=== PATIENT | female | born 1985 | race Caucasian/White ===

== ENCOUNTER 2017-06-03 08:32 | Day surgery (SDC) | payer OTHER ==
[~2017-06-03 08:32] MED LIST: Buffered Lidocaine 0.9% SYRIN* 5 ML/SYR SYRINGE INTRADERM ONE; ceFAZolin 2 GM in 100 MLS NS (*) BAG IVPB ONE
[2017-06-03] MEDS ORDERED: fentaNYL* 50 MCG/ML 2 ML VIAL (100 MCG VIAL) ONE (09:08)
[2017-06-03] MEDS ORDERED: Midazolam* 1 MG/ML 2 ML VIAL (2 MG) ONE ×2 (09:08→10:20)
[2017-06-03] MEDS ORDERED: BSS OPTH.SOL* BTL ONE (10:04)
[2017-06-03] MEDS ORDERED: Lidocaine 1% MPF wEPI 200,000* 30 ML SDV ONE (10:05)
[2017-06-03] MEDS ORDERED: Bacitracin OINTMENT* 0.5% 0.5 oz TUBE ONE (10:05)
[2017-06-03] MEDS ORDERED: Famotidine IV* 10 MG/ML 2 ML (20 mg) ONE (10:12)
[2017-06-03] MEDS ORDERED: Lidocaine 2% PF * 5 ML VIAL ONE (10:22)
[2017-06-03] MEDS ORDERED: Propofol* 10 MG/ML 20 ML BTL IV PUSH ONE (10:22)
[2017-06-03] MEDS ORDERED: Ketorolac INJ* 30 MG/ML 1 ML VIAL ONE (10:22)
[2017-06-03] MEDS ORDERED: Naloxone* 0.4 MG/ML 1 ML VIAL IV PRN (10:40)
[2017-06-03] MEDS ORDERED: HYDROcodone/ACETAMIN 5-325 MG* 1 TAB PO PRN (10:40)
[2017-06-03] MEDS ORDERED: Levalbuterol 0.63MG/3ML NEB* UNIT OF USE INH PRN (10:40)
[2017-06-03] MEDS ORDERED: Acetaminophen TAB* 325 MG PO PRN (10:40)
[2017-06-03] MEDS ORDERED: PROCHLORPERAZINE INJ 5 MG/ML 2 ML VIAL IV PRN (10:40)
[2017-06-03] MEDS ORDERED: DiMENhydriNATE IV* 50 MG/ML VIAL IV PUSH PRN (10:40)
[2017-06-03] MEDS ORDERED: Acetaminophen TAB* 325 MG ONE (11:29)
[2017-06-03 11:36] VITALS: BP 132/66
== END 2017-06-03 12:12 | disposition home or self-care (01) ==
LOC: OREAST 08:32
PROVIDERS: ATTEND Plastic Surgery
DX: Q85.01 Neurofibromatosis, type 1 (principal); F17.210 Nicotine dependence, cigarettes, uncomplicated; I10 Essential (primary) hypertension; F41.8 Other specified anxiety disorders; R51 Headache
CPT/HCPCS: 81025; 88305; A9270-GY; J1885; J2001; J2250; J2704; J3010

== ENCOUNTER 2017-06-23 19:47 | Emergency (ER) | payer SELFPAY ==
[2017-06-23] MEDS ORDERED: Tetan/Diph/Pertus SYR(Tdap)* 0.5 ML SYR(BOOSTRIX) use SYR IM ONE (19:52)
[2017-06-23] MEDS ORDERED: Ondansetron INJ* 2 MG/ML VIAL IV ONE (19:52)
[2017-06-23] MEDS ORDERED: Morphine INJ* 4 MG/ML 1 ML CARPUJECT IV ONE ×2 (19:52→22:18)
[2017-06-23] MEDS ORDERED: Morphine INJ* 4 MG/ML 1 ML SYRINGE (NEW SYRINGE VERSION) ONE (20:25)
[2017-06-23 20:33] LABS: ABS Basophils 0.1 10^3/ul (0-0.2); ABS Eosinophils 0.1 10^3/ul (0-0.6); ABS Lymphocytes 1.3 10^3/ul (1.0-4.8); ABS Monocytes 0.5 10^3/ul (0-0.8); ABS Neutrophils 6.8 10^3/ul (1.5-7.7); ABS Nucleated RBC 0 10^3/ul; Eosinophil % 0.8 % (0-6); Hematocrit 38 % (35-47); Lymphocyte % 14.7 % (25-47); Mean Corpuscular HGB Conc 34 g/dl (31-36); Mean Corpuscular Hemoglobin 31 pg (27-31); Mean Corpuscular Volume 89 fL (80-97); Mean Platelet Volume 7.9 um3 (7.4-10.4); Nucleated Red Blood Cells % 0; Platelet Count 303 10^3/ul (150-450); Red Blood Count 4.21 10^6/ul (4.0-5.4); Red Cell Distribution Width 12 % (10.5-15); White Blood Count 8.7 10^3/ul (3.5-10.8)
[2017-06-23 20:50] LABS: EGFR Non-African American 84.9 (>60)
[2017-06-23] MEDS ORDERED: Iohexol 300* (CONTRAST) 10 ML SDV IV ONE (20:58)
[2017-06-23 21:34] LABS: Urine Appearance Clear; Urine Blood 3+ (Negative); Urine Color Yellow; Urine Ketones Negative (Negative); Urine Protein Negative (Negative); Urine Specific Gravity 1.005 (1.010-1.030); Urine Urobilinogen Negative (Negative)
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
[2017-06-23 23:06] VITALS: BP 121/73
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
--- NOTE | 2017-06-24 07:45 | RAD ---
HISTORY: Left thumb injury COMPARISONS: None VIEWS: 3, Frontal, lateral, and oblique views of the first digit of left hand FINDINGS: BONE DENSITY: Normal. BONES: There is no displaced fracture. JOINTS: There is no arthropathy. ALIGNMENT: There is no dislocation. SOFT TISSUES: Unremarkable. OTHER FINDINGS: None. IMPRESSION: NO ACUTE OSSEOUS INJURY. IF SYMPTOMS PERSIST, RECOMMEND REPEAT IMAGING.
== END 2017-06-24 00:33 | disposition home or self-care (01) ==
LOC: ED 19:47
DX: S60.211A Contusion of right wrist, initial encounter (principal); S40.021A Contusion of right upper arm, initial encounter; Q85.01 Neurofibromatosis, type 1; R51 Headache; M79.645 Pain in left finger(s); M25.531 Pain in right wrist; M25.511 Pain in right shoulder; V43.52XA Car driver injured in collision with other type car in traffic accident, initial encounter; Y92.410 Unspecified street and highway as the place of occurrence of the external cause
CPT/HCPCS: 36415; 70450; 71260; 72125; 74177; 80053; 81003; 81015; 83690; 85025; 86850; 86900; 86901; 90471; 90715; 96374; 96375; 99283; J2270; J2405; Q9967

== ENCOUNTER 2017-12-09 12:08 | Day surgery (SDC) | payer OTHER ==
[~2017-12-09 12:08] MED LIST changes: +Dexamethasone IV* 4 MG/ML 1 ML (4 MG) IV SLOW PU ONE; +Famotidine IV* 10 MG/ML 2 ML (20 mg) IV ONE; -ceFAZolin 2 GM in 100 MLS NS (*) BAG IVPB ONE
[2017-12-09] MEDS ORDERED: Dexamethasone IV* 4 MG/ML 1 ML (4 MG) ONE (12:17)
[2017-12-09] MEDS ORDERED: ceFAZolin 2 GM in NS PREMIX(*) 2 GM/100 ML BAG IVPB ONE (12:18)
[2017-12-09] MEDS ORDERED: Famotidine IV* 10 MG/ML 2 ML (20 mg) ONE (12:18)
[2017-12-09] MEDS ORDERED: Ondansetron INJ* 2 MG/ML VIAL IV PRN (13:55)
[2017-12-09] MEDS ORDERED: oxyCODONE/Acetamin 5/325 MG* TAB PO PRN (13:55)
[2017-12-09] MEDS ORDERED: fentaNYL* 50 MCG/ML 2 ML VIAL (100 MCG VIAL) IV PRN (13:55)
[2017-12-09] MEDS ORDERED: DiMENhydriNATE IV* 50 MG/ML VIAL IV PUSH PRN (13:55)
[2017-12-09] MEDS ORDERED: Naloxone* 0.4 MG/ML 1 ML VIAL IV PRN (13:55)
[2017-12-09] MEDS ORDERED: Midazolam* 1 MG/ML 5 ML VIAL (5 MG) ONE (14:00)
[2017-12-09] MEDS ORDERED: fentaNYL* 50 MCG/ML 2 ML VIAL (100 MCG VIAL) ONE (14:00)
[2017-12-09] MEDS ORDERED: Propofol* 10 MG/ML 20 ML BTL IV PUSH ONE (14:01)
[2017-12-09] MEDS ORDERED: Lidocaine 2% PF * 5 ML VIAL ONE (14:01)
[2017-12-09] MEDS ORDERED: Ketorolac INJ* 30 MG/ML 1 ML VIAL ONE (14:01)
[2017-12-09] MEDS ORDERED: Ondansetron INJ* 2 MG/ML VIAL ONE (14:01)
[2017-12-09] MEDS ORDERED: ROPIVACAINE 5 MG/ML 30 ML BTL (0.5%) ONE (14:46)
[2017-12-09 15:59] VITALS: BP 107/62
--- NOTE | 2017-12-11 01:36 | OP ---
OPERATIVE REPORT: DATE OF OPERATION: 12/09/17 DATE OF : 85 SURGEON: Doug Huff MD HELP DESK ADMINISTRATOR: None. ANESTHESIOLOGIST: Dr. Benz. ANESTHESIA: Local MAC. PRE-OP DIAGNOSIS: Left thumb middle finger neurofibroma. POST-OP DIAGNOSIS: Left thumb middle finger neurofibroma. OPERATIVE PROCEDURE: 1. Excision of left thumb neurofibroma over the distal phalanx. 2. Excision of a deep left middle finger neurofibroma over the ulnar aspect of the proximal phalanx. INDICATIONS: Aishwarya is 32. She has neurofibromatosis. She has had multiple neurofibromas excised ov er her life. She has developed couple that a quite symptomatic in the fingers, actually in the clini c she had wanted to see if she can get these excised. We talked about risks and benefits, she wanted to proceed. ESTIMATED BLOOD LOSS: 2 mL. COMPLICATIONS: None. FINDINGS: As expected. DESCRIPTION OF PROCEDURE: Aishwarya was seen in the preoperative holding area. We came back to the oper ating room where I performed digital blocks for both fingers with long acting local anesthetic. We t hen prepped and draped the hand in the usual fashion and a time-out was performed. The arm was exsanguinated and the tourniquet inflated to 250 mmHg. I made a longitudinal incision ov er the dorsal radial aspect of the left thumb over the distal phalanx. The neurofibroma was excised out in a marginal type fashion. This was taken all the way down to the periosteum of the bone and wa s filled out periosteum of the bone. Once I had fully excised the mass we closed the skin with 4-0 n ylon suture. I then made a longitudinal incision just dorsal to the ulnar mid axial line on the left middle finger over the proximal phalanx. A marginal excision was again performed of another neurofibroma. This w as taken deep down to the periosteum of the proximal phalanx. Care was taken to preserve the digital nerve neurovascular bundle palmarly. Once the mass was completely excised the wound was irrigated o ut. The skin was closed with 4-0 nylon suture. The fingers were dressed with soft dressings. Tourni quet was deflated and she was woken up and taken to the recovery room in stable condition. [id number]/[facility] #: [id number]
== END 2017-12-09 16:15 | disposition home or self-care (01) ==
LOC: OREAST 12:08
PROVIDERS: ATTEND Orthopaedic Surgery Hand Surgery
CPT/HCPCS: 81025; 88304; J0690; J1100; J1885; J2250; J2405; J2704; J2795; J3010

== ENCOUNTER 2018-01-20 06:09 | Observation (INO) | payer OTHER ==
[~2018-01-20 06:09] MED LIST changes: -Dexamethasone IV* 4 MG/ML 1 ML (4 MG) IV SLOW PU ONE
[2018-01-20] MEDS ORDERED: Famotidine IV* 10 MG/ML 2 ML (20 mg) ONE (06:49)
[2018-01-20] MEDS ORDERED: ceFAZolin 2 GM PREMIX in ORs 2 GM/50 ML BAG IVPB ONE (06:49)
[2018-01-20] MEDS ORDERED: Lidocaine 1% MPF wEPI 200,000* 30 ML SDV ONE (06:52)
[2018-01-20] MEDS ORDERED: Bacitracin IV* 50,000 UNITS INJ ONE (06:53)
[2018-01-20] MEDS ORDERED: Thrombin 5,000 UNITS* 1 APPLIC KIT - topical use - TOPICAL ONE (06:53)
[2018-01-20] MEDS ORDERED: Midazolam* 1 MG/ML 10 ML VIAL (10 MG) ONE (07:16)
[2018-01-20] MEDS ORDERED: Remifentanil* 2 MG VIAL ONE ×2 (07:16→09:14)
[2018-01-20] MEDS ORDERED: Artificial Tear OPHTH.OINT* 3.5 GM ONE (07:16)
[2018-01-20] MEDS ORDERED: fentaNYL* 50 MCG/ML 2 ML VIAL (100 MCG VIAL) ONE ×3 (07:16→12:05)
[2018-01-20] MEDS ORDERED: Cisatracurium* 2 MG/ML MDV 5 ML ONE (07:16)
[2018-01-20] MEDS ORDERED: Lidocaine 2% PF * 5 ML VIAL ONE ×2 (07:16→09:15)
[2018-01-20] MEDS ORDERED: Propofol* 10 MG/ML 20 ML BTL IV PUSH ONE (07:16)
[2018-01-20] MEDS ORDERED: Sodium Chloride 0.9%* 10 ML ONE (07:16)
[2018-01-20] MEDS ORDERED: KETAMINE HCL* 50 MG/ML 10 ML VIAL ONE (07:16)
[2018-01-20] MEDS ORDERED: Propofol* 500 MG/50 ML BTL ONE ×2 (07:16→09:14)
[2018-01-20] MEDS ORDERED: Phenylephrine INJ* 10 MG/ML 1 ML VIAL (10 MG) ONE (07:16)
[2018-01-20] MEDS ORDERED: Dexamethasone IV* 4 MG/ML 1 ML (4 MG) ONE ×2 (07:17)
[2018-01-20] MEDS ORDERED: Morphine VIAL* 10 MG/ML 1 ML VIAL ONE (08:17)
[2018-01-20] MEDS ORDERED: Metoclopramide IV* 5 MG/ML 2 ML VIAL ONE (08:25)
[2018-01-20] MEDS ORDERED: DiMENhydriNATE IV* 50 MG/ML VIAL IV PUSH PRN (09:54)
[2018-01-20] MEDS ORDERED: Ondansetron INJ* 2 MG/ML VIAL IV PRN ×2 (09:54→11:20)
[2018-01-20] MEDS ORDERED: Naloxone* 0.4 MG/ML 1 ML VIAL IV PRN (09:54)
[2018-01-20] MEDS ORDERED: oxyCODONE/Acetamin 5/325 MG* TAB PO PRN (09:54)
[2018-01-20] MEDS ORDERED: HYDROmorphone INJ1* 1 MG/ML SYRINGE ONE (10:44)
[2018-01-20] MEDS ORDERED: Acetaminophen TAB* 325 MG PO PRN (11:20)
--- NOTE | 2018-01-20 11:34 | RAD ---
INDICATION: Anterior cervical discectomy and fusion COMPARISONS: December 24, 2017 TECHNIQUE: Fluoroscopy was provided for a surgical procedure. Total fluoroscopy time is: 23.2 seconds FINDINGS: Spot images demonstrate anterior cervical fusion plate and screws at C4, C5, C6 with intervertebral graft material. IMPRESSION: FLUOROSCOPY WAS PROVIDED FOR A SURGICAL PROCEDURE CPT II Codes: G9500
[2018-01-20] MEDS: fentaNYL* 50 MCG/ML 2 ML VIAL (100 MCG VIAL) IV PRN ×4 (11:39→12:16)
[2018-01-20] MEDS ORDERED: HYDROcodone/ACETAMIN 5-325 MG* 1 TAB ONE (12:47)
[2018-01-20] MEDS: HYDROcodone/ACETAMIN 5-325 MG* 1 TAB PO PRN ×2 (16:51→20:59)
[2018-01-20] MEDS: traZODone TAB* 50 MG TAB PO SCH (21:00)
[2018-01-20] MEDS: Gabapentin CAP(*) 300 MG PO SCH (21:00)
--- NOTE | 2018-01-20 23:09 | OP ---
DATE OF OPERATION: 01/20/18 - ROOM #331 DATE OF : 85 SURGEON: Angeles Sharma MD GOVERNMENT INSTRUCTOR: DANIA Pierre. The case was done with assistance of surgical PA because of the complexity of the case. ANESTHESIA: General. PRE-OP DIAGNOSES: Degenerative disk disease, myelopathy. POST-OP DIAGNOSES: Degenerative disk disease, myelopathy. OPERATIVE PROCEDURE: The patient underwent anterior cervical diskectomy and fusion at C4-5 and C5-6 with PEEK interbody cages, autologous local bone graft, DBX and plate. ESTIMATED BLOOD LOSS: 20 cc. COMPLICATIONS: None. 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 MRI revealed degenerative disk disease at with herniated nucleus pulposus and cord compression. The patient was offered the option of surgical intervention in the form of anterior cervical diskectomy and fusion. After explaining the expectation, limitations and possible complications of the procedure to the patient and her mother with complications including, but not limited to bleeding , infection, risk of injury to adjacent structures, coma, paralysis, , need for additional procedures, anesthesia risks, stroke, blindness, cancer, instability, pseudoarthrosis, adjacent level disease, spinal fluid leak, recurrent laryngeal nerve injury, Chanda syndrome, need for tracheostomy or gastrostomy, prolonged ICU stay; the patient and her mother were agreeable to proceed with surgery and informed consent was obtained. The patient understood that her condition may not improve and in fact may get worse after surgery and that she may need to have additional procedures. She also understood that the goal of the surgery is to decompress the spinal cord and hopefully stabilize her myelopathy. She understood that operative plan may be modified according to intraoperative findings and conditions and that the case can be abandoned or be done in more than 1 stages. DESCRIPTION OF PROCEDURE: The patient was brought to the operating room and was placed under general anesthesia by anesthesia team. She was carefully positioned supine on the regular table and all the bony prominences were meticulously padded. Her skin was prepped and draped in the standard fashion and right transverse incisions over the appropriate surgical levels were marked on the skin with assistance of intraoperative fluoroscopic imaging. After appropriate surgical pause and patient identification, the incision site was infiltrated with local anesthetic. A #10 surgical blade was used to incise the skin. The skin was undermined with tenotomy scissors and the self-retaining retractors were introduced into the field. The platysma was gently divided with tenotomy scissors and Bovie cautery and was gently undermined. The self- retaining retractors were introduced right into the field and the plane between the medial border of the sternocleidomastoid and the medial structures was then developed with sharp and blunt dissection while the omohyoid was gently divided with Bovie cautery. The prevertebral fascia was then identified and after confirming of the appropriate surgical levels with intraoperative fluoroscopic imaging, Donnell pins were placed in the C4, C5 and C6 vertebral bodies while the self-retaining retractors were introduced into the field. A diskectomy was performed at C4-5 level after incising the annulus fibrosus with #15 surgical blade. The diskectomy was carried out with pituitary rongeurs, Kerrison punches , curettes, and high-speed drill. Locally harvested bone graft was then saved during this process for the use of the arthrodesis part of the procedure. The diskectomy was completed under the microscopic magnification and large disk herniation was identified and was gently removed with pituitary rongeurs. The posterior longitudinal ligament was gently divided with Kerrison punches and after appropriate sizing of the disk space with trials, an 8-mm height PEEK interbody cage from [employer] was implanted after being filled with locally harvested bone graft and DBX putty. The [place] pin was then removed from the C4 vertebral body and after confirmation of meticulous hemostasis, the retractor system was removed into the next level. The procedure was repeated for diskectomy and preparation of the disk space at the C5-6 level and another 8 -mm height PEEK interbody cage filled with locally harvested bone graft and DBX was then placed. A 37-mm ZEVO plate was contoured in shape and was placed and secured with titanium screws. Intraoperative fluoroscopic imaging confirmed excellent placement of all hardware. After removal of the retractor system, excellent hemostasis was confirmed and after copious irrigation and meticulous inspection, #7 GRETTA drain was inserted and the wound was closed by layers. The GRETTA drain was tunneled through a separate stab wound incision. The wound was closed with 2-0 interrupted Vicryl sutures for the platysma while the subcutaneous tissue was approximated with 2-0 interrupted Vicryl sutures. The skin was then covered with Dermabond. At the end of the procedure, all counts were reported to be correct. The patient remained hemodynamically stable throughout the case and intraoperative electro-physiological monitoring remained stable throughout the case. The patient was then extubated and was transferred to Recovery in excellent condition. The case was done with the assistance of surgical PA because of the complexity of the case. [id number]/[facility] #: [id number] MARISOL
[2018-01-21] MEDS: HYDROcodone/ACETAMIN 5-325 MG* 1 TAB PO PRN ×5 (01:03→17:10)
[2018-01-21] MEDS: Venlafaxine EXT RELEASE CAP* 75 MG PO SCH (08:51)
[2018-01-21] MEDS: Verapamil SR CAP* 180 MG PO SCH (08:52)
[2018-01-21] MEDS: Gabapentin CAP(*) 300 MG PO SCH ×2 (08:52→20:02)
[2018-01-21] MEDS ORDERED: Benzocaine/Menthol LOZ* 1 LOZENGE PO PRN (11:11)
[2018-01-21 11:53] LABS: ABS Basophils 0 10^3/ul (0-0.2); ABS Eosinophils 0 10^3/ul (0-0.6); ABS Lymphocytes 0.8 10^3/ul (1.0-4.8); ABS Monocytes 0.4 10^3/ul (0-0.8); ABS Neutrophils 8.1 10^3/ul (1.5-7.7); ABS Nucleated RBC 0 10^3/ul; Eosinophil % 0.1 % (0-6); Hematocrit 38 % (35-47); Hemoglobin 13.1 g/dl (12.0-16.0); Lymphocyte % 8.1 % (25-47); Mean Corpuscular HGB Conc 34 g/dl (31-36); Mean Corpuscular Hemoglobin 31 pg (27-31); Mean Corpuscular Volume 90 fL (80-97); Mean Platelet Volume 8.2 um3 (7.4-10.4); Nucleated Red Blood Cells % 0.1; Platelet Count 257 10^3/ul (150-450); Red Blood Count 4.26 10^6/ul (4.00-5.40); Red Cell Distribution Width 13 % (10.5-15); White Blood Count 9.3 10^3/ul (3.5-10.8)
[2018-01-21 12:11] LABS: EGFR Non-African American 98.6 (>60)
[2018-01-21] MEDS ORDERED: Ketorolac INJ* 15 MG/ML 1 ML VIAL IV PUSH ONE (13:38)
--- NOTE | 2018-01-21 17:26 | CONS ---
CC: Dr. Andrez Manzo; Dr. Marks; Dr. Sharma * CONSULTATION REPORT: DATE OF CONSULT: 01/21/18 PRIMARY CARE PROVIDER: Dr. Andrez Manzo. PATIENT'S NEUROLOGIST: Dr. Marks PATIENT'S NEUROSURGEON: Dr. Sharma, who requested the consult. REASON FOR CONSULT: Postoperative headaches. HISTORY OF PRESENT ILLNESS: Aishwarya Vega is a 32-year-old female, status post anterior cervical discectomy for degenerative disc disease and cord compression performed by Dr. Sharma on 01/20/18. Today in the morning, she developed 9/10 frontal headache. The patient stated that she has history of chronic headaches and usually they are in similar intensity at home, but localized in the occipital area. Today's headache is different. In addition to that, the patient complains of difficulty with painful swallowing after general anesthesia and intubation. She is currently wearing a C-spine collar. She has not eaten anything today. She usually drinks coffee during the daytime, she has not had any. She denies any localized weakness and she has not had any weakness prior to her C- spine surgery. She complained of cervical pain prior to surgery with Dr. Sharma. A consultation was requested by Dr. Sharma in regards of that headache. PAST MEDICAL HISTORY: 1. History of neurofibromatosis type 1. 2. History of insomnia. 3. History of chronic pain. 4. [place] teeth removal. CURRENT MEDICATIONS: Include: 1. Verapamil SR 180 mg q.a.m. 2. Effexor 150 mg daily. 3. Trazodone 50 mg at bedtime. 4. Zofran on p.r.n. basis. 5. Lactated Ringer's 75 mL an hour. 6. [place] 1 tablet every 4 hours p.r.n. 7. Gabapentin 300 mg b.i.d. 8. Pepcid, the patient received 1 dose IV postoperatively. 9. Tylenol on a p.r.n. basis. ALLERGIES: PREDNISONE causes the patient to be delirious as well as ADHESIVE TAPE and COCONUT. FAMILY HISTORY: The patient's parents are healthy. She has no siblings with medical problems either. SOCIAL HISTORY: The patient is a [id number] mom. Her children are 2 and 5 years old. She denies any alcohol, tobacco, or drug use. Her surrogate is her father, Balaji Vega. REVIEW OF SYSTEMS: The patient complains of 9/10 frontal headache. Denies visual changes. Denies focal weakness. The patient complains of pain with swallowing, but no difficulty swallowing per se after intubation. She has not eaten breakfast yet and she has not had any carbohydrate beverages, which she uses routinely at home. The patient denies any chest pain, abdominal pain. The patient complains of chronic skin lesions with fibromatosis. All the remaining 12 systems are reviewed with the patient and were otherwise negative. PHYSICAL EXAM: Blood pressure of 183/74, heart rate of 71 and regular, respiratory rate 14, oxygen saturation 96% on room air, and temperature 98.6. General: The patient is a very pleasant 32-year-old female who is not in acute distress. Alert, awake, and oriented x3. HEENT: Head: Atraumatic and normocephalic. Eyes: Pupils are equal and reactive to light and accommodation. Oropharynx is pink. Mucosa moist. Neck: C-spine collar in place. Postoperative dressing anteriorly applied to the neck that was not removed for evaluation. The patient has GRETTA drain attached to the anterior cervical wound that is draining straw-colored liquid with streak red blood. There is approximately an 8 mL of fluid in the GRETTA drain ball. Respiratory: Clear to auscultation bilaterally. Cardiovascular: Regular rate and rhythm. No murmur. Abdomen: Soft, nontender. Bowel sounds are present in all 4 quadrants. Extremities: There is no edema. Pulses are +2 bilaterally. No clubbing or cyanosis. On evaluation of the skin, multiple skin fibromas noted, mostly concentrating on the anterior trunk. There are no open lesions. The skin is nontender to palpation. Neuro Evaluation: Cranial nerves II through XII are grossly intact. Mobility of the neck was not evaluated due to C-spine collar in place as was postoperative state. Motor strength bilateral upper and lower extremities is 5/5 bilaterally and not impaired. Sensation is grossly intact. Speech is clear. Psychiatric Evaluation: Oriented x3, pleasant and cooperative with evaluation with no evidence of anxiety or depression. LABORATORY DATA: Pending at the time of dictation. ASSESSMENT AND PLAN: 1. Postoperative headache. It may be caffeine withdrawal headache. I encouraged for the patient to eat. For the time being though due to low p.o. intake, I will restart her IV fluids. At this point, try to break the headache with 1 dose of Toradol, but I would prefer to have the patient's renal function before administering the nonsteroidal medication. For the time being, I agree with further management with [place] and Tylenol as previously ordered. 2. In regards to the patient's postoperative state as per Dr. Sharma. Thank you very much for allowing me to see your patient in consultation. We will follow on daily basis. TIME SPENT: Approximately 62 minutes were spent on the patient's consult. [id number]/[facility] #: [id number] MARISOL
--- NOTE | 2018-01-21 19:56 | PN ---
Progress Note - Progress Note Date of Service: 01/21/18 SOAP: Subjective: []No events ON. Patient tolerated the procedure well yesterday. Had co BLACK this am. Appreciate IM consult. Ambulates, Voids, Tolerates Po well, mild difficulty swallowing. Objective: []VSS, Afebrile Wound s,c,d GRETTA output noted, GRETTA was removed. Catheter appeared to be intact. Patient tolerated procedure well. AAOx3, IVAN, CN II-XII grossly intact Motor 5/5 all extremities Sensory grossly intact to light touch Assessment: []32 yof POD#1 ACDF C4-5, C5-6 Plan: []Monitor VS, Neurochecks Encourage ambulation. DC planning Appreciate IM consult. Ariel Sharma MD
[2018-01-21] MEDS ORDERED: Ketorolac INJ* 30 MG/ML 1 ML VIAL IV ONE (21:00)
[2018-01-21] MEDS: traZODone TAB* 50 MG TAB PO SCH (21:16)
[2018-01-22] MEDS: HYDROcodone/ACETAMIN 5-325 MG* 1 TAB PO PRN ×3 (03:35→12:45)
[2018-01-22 08:08] VITALS: BP 121/65
[2018-01-22] MEDS ORDERED: Ketorolac INJ* 15 MG/ML 1 ML VIAL IV PUSH ONE (08:43)
[2018-01-22] MEDS: Gabapentin CAP(*) 300 MG PO SCH (09:11)
[2018-01-22] MEDS: Verapamil SR CAP* 180 MG PO SCH (09:12)
[2018-01-22] MEDS: Venlafaxine EXT RELEASE CAP* 75 MG PO SCH (09:12)
--- NOTE | 2018-01-22 10:09 | PN ---
Subjective Date of Service: 01/22/18 Interval History: Ms. Vega reports that her headaches remain a 9/10, but states the pain is generalized, not frontal. She reports chronic daily headaches. She states this is how her headaches typically present, but the pain is usually resolved with acetaminophen. She reports that the toradol she received yesterday resolved the pain completely, but the norco has not helped. The norco was effective for her neck/shoulder pain. She sometimes takes ibuprofen at home. She does usually consume 1 cup of coffee daily as well as Pepsi throughout the day. She has been drinking Pepsi overnight, but has not had coffee in a few days due to her difficulty swallowing postop. She is still wearing a [place] J collar. She would like to shower this morning. Family History: Unchanged from Admission Social History: Unchanged from Admission Past Medical History: Unchanged from Admission Objective Active Medications: Acetaminophen (Tylenol Tab*) 650 mg PO Q4H PRN Hydrocodone Bitart/Acetaminophen ([place] 5-325 Tab*) 2 tab PO Q4H PRN Gabapentin (Neurontin Cap(*)) 300 mg PO BID OSKAR Lactated Ringer's (Lactated Ringers 1000 Ml Bag*) 1,000 mls @ 75 mls/hr IV .per rate OSKAR Ondansetron HCl (Zofran Inj*) 4 mg IV Q6H PRN Throat Lozenges (Chloraseptic Morales*) 1 morales PO Q6H PRN Trazodone HCl (Desyrel Tab*) 50 mg PO BEDTIME OSKAR Venlafaxine HCl (Effexor Xr Cap*) 150 mg PO QAM OSKAR Verapamil HCl (Calan Sr Cap*) 180 mg PO QAM OSKAR Vital Signs - 8 hr 01/22/18 01/22/18 01/22/18 03:15 03:35 07:25 Temperature 98.5 F 97.9 F Pulse Rate 70 63 Respiratory 16 18 16 Rate Blood Pressure 126/60 121/65 (mmHg) O2 Sat by Pulse 97 97 Oximetry Oxygen Devices in Use Now: None Appearance: Young adult woman laying in bed in NAD; [place] J collar in place Eyes: No Scleral Icterus Ears/Nose/Mouth/Throat: Mucous Membranes Moist Neck: NL Appearance and Movements; NL JVP Respiratory: Symmetrical Chest Expansion and Respiratory Effort, Clear to Auscultation Cardiovascular: NL Sounds; No Murmurs; No JVD, RRR Extremities: No Edema Neurological: Alert and Oriented x 3 Lines/Tubes/Other Access: Clean, Dry and Intact Peripheral IV Nutrition: Taking PO's Result Diagrams: 01/21/18 11:22 01/21/18 11:22 Assess/Plan/Problems-Billing Assessment: Ms. Vega is a 32yo with PMH of neurofibromatosis type 1, chronic pain, and insomnia, who underwent a cervical discectomy with Dr. Junior on 01/20/18 and presented POD 1 with c/o severe headaches. Hospital medicine is consulting for co-medical management. - Patient Problems (1) Chronic daily headache Current Visit: Yes Status: Acute Priority: High Code(s): R51 - HEADACHE SNOMED Code(s): 288318826156 Comment: - Worsened postop; likely exacerbated by caffeine withdrawal - Continue [place] and tylenol - Toradol x1 now - Recommend NSAID use at d/c as this has proven effective here in the hospital (2) S/P cervical discectomy Current Visit: Yes Status: Acute Priority: High Code(s): Z98.890 - OTHER SPECIFIED POSTPROCEDURAL STATES SNOMED Code(s): 740558677 Comment: - Management per Neurosurgery (3) Neurofibromatosis, type 1 Current Visit: Yes Status: Chronic Priority: Medium Comment: - Follows with Dr. Marks - Continue home medications (4) Insomnia disorder Current Visit: Yes Status: Chronic Priority: Medium Code(s): G47.00 - INSOMNIA, UNSPECIFIED SNOMED Code(s): 743515656 Comment: - Continue trazodone (5) Full code status Current Visit: Yes Status: Acute Priority: High Code(s): Z78.9 - OTHER SPECIFIED HEALTH STATUS SNOMED Code(s): 288770108 (6) DVT prophylaxis Current Visit: Yes Status: Acute Priority: High Code(s): CGF1113 - SNOMED Code(s): 934654917 Comment: - SCDs Status and Disposition: Observation. The patient is stable for d/c home from a Hospital Medicine standpoint. Recommend NSAID use at d/c and f/u with neurology. Thank you for this consultation.
--- NOTE | 2018-01-22 10:25 | PN ---
Progress Note - Progress Note Date of Service: 01/22/18 SOAP: Subjective: []POD # 2 Doing well Some neck pain Objective: []Neck soft Neuro intact Assessment: []Satis post op course Plan: []D/C today D/C instructions given
--- NOTE | 2018-01-22 13:22 | RAD ---
INDICATION: Postop status post anterior spinal fusion, cervical spine. COMPARISON: Comparison is made with a prior study from December 24, 2017 and a prior intraoperative study from January 20, 2018. TECHNIQUE: 3 views of the cervical spine were obtained including lateral, AP and open-mouth odontoid views. FINDINGS: The patient is status post anterior spinal fusion at the C4-C6 levels. There is a metallic plate present anterior to those vertebral bodies transfixed with 2 screws at each level. There are also disc prosthesis at the C4-C5 and C5-C6 levels. There is mild prevertebral soft tissue swelling consistent with the patient's recent surgery. The vertebra are in normal alignment. Disc spaces appear maintained. IMPRESSION: STATUS POST ANTERIOR SPINAL FUSION C4-C6.
== END 2018-01-22 13:30 | disposition home or self-care (01) ==
LOC: OR 06:09 → EDSTATUS 07:30 → SSU 12:48 → INTOOBSV 12:48
PROVIDERS: ADMIT Neurological Surgery; ATTEND Neurological Surgery
DX: M48.02 Spinal stenosis, cervical region (principal); M50.90 Cervical disc disorder, unspecified, unspecified cervical region; M50.021 Cervical disc disorder at C4-C5 level with myelopathy; M50.022 Cervical disc disorder at C5-C6 level with myelopathy; M47.12 Other spondylosis with myelopathy, cervical region; R51 Headache; G47.00 Insomnia, unspecified; Z98.890 Other specified postprocedural states; Q85.01 Neurofibromatosis, type 1
CPT/HCPCS: 36415; 72040; 76001; 80048; 85025; 90686; A9270-GY; G0378; J0690; J1100; J1170; J1885; J2001; J2250; J2270; J2704; J2765; J3010

== ENCOUNTER 2018-06-05 14:09 | Emergency (ER) | payer OTHER ==
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
--- OUTSIDE RECORDS SUMMARY | 2018-06-05 14:54 | XMS REPORT | Continuity of Care Document ---
:1985 External Reference #:[id number] Author Name Addis Kerr Care Team Providers Name Role Phone Ofelia Prince M.D. Care Team Information Human Resources Vice President Unavailable Payers Date Identification Numbers Payment Provider Subscriber Policy Number: [id number] Rajeev Olivares PayID: [id number] [address] [place] [phone] Advance Directives Description No Information Available Problems Date Description Provider Status Onset: 07/18/2012 Visual impairment Jose F Messina M.D. Active Onset: 10/24/2014 Daily headache Sarah Brandt M.D. Active Onset: 10/24/2014 Neurofibromatosis syndrome Sarah Brandt M.D. 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 Onset: 04/14/2017 Hemiplegic migraine Lenin Marks MD Active Onset: 04/14/2017 Chronic mixed headache syndrome Lenin Marks MD Active Onset: 10/21/2017 Cervical disc disorder Lenin Marsk MD Active Onset: 11/16/2017 Localized superficial swelling of Doug Huff MD Active skin Onset: 12/07/2017 Spinal stenosis in cervical region Angeles Sharma MD Active Onset: 12/07/2017 Cervical spondylosis with Angeles Sharma MD Active myelopathy Family History Date Family Member(s) Observation Comments Siblings 5 Social History Type Date Description Comments Sex Unknown Marital Status Single Lives With Family Occupation Disabled Tobacco Use Start: Unknown Currently smokes 1-5 Down to 3/ day Cigarettes Daily 03/26/17. Smoker for 1 year ETOH Use Denies alcohol use Recreational Drug Use Denies Drug Use Tobacco Use Start: Unknown End: Patient is a former Unknown smoker Smoking Status Reviewed: 05/18/18 Patient is a former smoker Exercise Type/Frequency Exercises regularly Chasing children Allergies, Adverse Reactions, Alerts Date Description Reaction Status Severity Comments 03/02/2017 Prednisone Hallucinations Active 03/26/2017 Coconut Active 12/07/2017 Plastic Tape Active 07/11/2012 NKDA Inactive Medications Medication Date Status Form Strength Qnty SIG Indications Ordering Provider Gabapentin Active Capsules 300mg 150cap 1 by Lenin Velez s mouth in [place], am 3 in pm for a week then 2 in am and 3 in pm Trazodone HCL Active Tablets 50mg 1 tablet Unknown 0 at bedtime as needed Verapamil HCL Active Caps ER 180mg 1 tab po Unknown ER 0 24HR qam Venlafaxine Active Tablets 150mg 1 by Unknown HCL 0 mouth every day Hair, Skin, Active 3 tabs po Unknown Nails 0 qd Tylenol Active Capsules 200mg 2 tablets Unknown 0 every 4 hours as needed for pain Tramadol HCL Hx Tablets 50mg 30tabs 1-2 Doug 8 - tablets Huff, by mouth 8 every 6 hours as needed pain Effexor XR Hx Caps ER 37.5mg 60caps 1-2 caps Sarah MAdrienne 3 - 24HR by mouth Karly, Unknown every day M.D. as directed Depakote ER Hx Tablets ER 500mg 60tabs 2 tabs by Sarahkeerthi Arce 3 - 24HR mouth Stackman, every M.D. 3 night as directed Pamelor Hx Capsules 10mg 60caps 1-2 caps Sarah M. 3 - every Stackman, night as M.D. 3 directed Pamelor Hx Capsules 10mg 90caps 3 caps po Sarah M. 3 - every Stackman, night as M.D. 3 directed (pt states she is no longer taking 09/09/2012 ) Lyrica Hx Capsules 25mg 60caps 3 po Sarah M. 0 - qnight Stackman, M.D. 7 Skelaxin Hx Tablets 800mg 30tabs 1 tab po Unknown 0 - q night 7 Doxycycline Hx 1 cap po Unknown 0 - bid 3 Tramadol HCL Hx Tablets 50mg qid prn Unknown 0 - 7 Trinessa Hx Tablets 0.18/0.215 qd Unknown 0 - /0.25 Unknown mg-35 mcg Hair/Skin/Brenda Hx Tablets daily Unknown ls 0 - Unknown Verapamil HCL Hx Tablets 120mg 1 tab po Unknown 0 - qam [address] 500mg 1 by Unknown 0 - mouth twice a 8 day Gabapentin Hx Capsules 300mg 1 by Unknown 0 - mouth bid 9 Immunizations Description No Information Available Vital Signs Date Vital Result Comment 05/18/2018 11:37am Height 72 inches 6'0" Weight 210.00 lb Heart Rate 80 /min BP Systolic 142 mmHg BP Diastolic 78 mmHg BMI (Body Mass Index) 28.5 kg/m2 04/25/2018 2:23pm Height 72 inches 6'0" Weight 194.00 lb BP Systolic Sitting 122 mmHg BP Diastolic Sitting 70 mmHg Pain Level 8 BMI (Body Mass Index) 26.3 kg/m2 04/22/2018 3:27pm Height 72 inches 6'0" Weight 194.00 lb Heart Rate 70 /min BP Systolic 112 mmHg BP Diastolic 80 mmHg BMI (Body Mass Index) 26.3 kg/m2 02/22/2018 11:35am Height 72 inches 6'0" Weight 201.00 lb BP Systolic Sitting 128 mmHg BP Diastolic Sitting 80 mmHg Pain Level 4 BMI (Body Mass Index) 27.3 kg/m2 01/31/2018 2:49pm Height 72 inches 6'0" Heart Rate 68 /min BP Systolic Sitting 122 mmHg BP Diastolic Sitting 88 mmHg Body Temperature 98.6 F 01/17/2018 8:30am Height 72 inches 6'0" Weight 201.75 lb Heart Rate 76 /min BP Systolic Sitting 132 mmHg BP Diastolic Sitting 86 mmHg Respiratory Rate 20 /min Body Temperature 98.0 F BMI (Body Mass Index) 27.4 kg/m2 12/21/2017 10:38am Height 72 inches 6'0" Body Temperature 98.9 F Pain Level 2 12/07/2017 2:01pm Height 72 inches 6'0" Weight 194.00 lb BP Systolic Sitting 126 mmHg BP Diastolic Sitting 78 mmHg Pain Level 10 BMI (Body Mass Index) 26.3 kg/m2 11/16/2017 1:35pm Height 72 inches 6'0" Weight 194.00 lb Heart Rate 73 /min BP Systolic 112 mmHg BP Diastolic 70 mmHg Respiratory Rate 16 /min Body Temperature 98.0 F Pain Level 8 BMI (Body Mass Index) 26.3 kg/m2 10/21/2017 11:14am Height 72 inches 6'0" Weight 191.00 lb Heart Rate 82 /min BP Systolic Sitting 122 mmHg BP Diastolic Sitting 80 mmHg BMI (Body Mass Index) 25.9 kg/m2 10/12/2017 10:15am Height 72 inches 6'0" Weight 191.00 lb Heart Rate 86 /min BP Systolic 128 mmHg BP Diastolic 82 mmHg Respiratory Rate 18 /min Body Temperature 97.3 F BMI (Body Mass Index) 25.9 kg/m2 10/11/2017 11:19am Height 72 inches 6'0" Weight 191.00 lb Heart Rate 80 /min BP Systolic Sitting 132 mmHg BP Diastolic Sitting 84 mmHg BMI (Body Mass Index) 25.9 kg/m2 04/14/2017 9:19am Height 72 inches 6'0" Weight 192.00 lb Heart Rate 80 /min BP Systolic Sitting 126 mmHg BP Diastolic Sitting 82 mmHg Respiratory Rate 16 /min BMI (Body Mass Index) 26.0 kg/m2 03/26/2017 9:56am Height 72 inches 6'0" Weight 194.00 lb with shoes Heart Rate 84 /min BP Systolic Sitting 126 mmHg Rue reg cuff BP Diastolic Sitting 82 mmHg Rue reg cuff Respiratory Rate 16 /min O2 % BldC Oximetry 97 % On Ra BMI (Body Mass Index) 26.3 kg/m2 03/02/2017 10:38am Heart Rate 78 /min Respiratory Rate 16 /min Body Temperature 96.8 F 02/23/2017 10:44am Height 72 inches 6'0" Weight 190.00 lb Heart Rate 78 /min BP Systolic 114 mmHg BP Diastolic 70 mmHg Respiratory Rate 16 /min Body Temperature 97.2 F BMI (Body Mass Index) 25.8 kg/m2 11/23/2016 11:35am Height 72 inches 6'0" Weight 188.00 lb Heart Rate 60 /min reg BP Systolic Sitting 100 mmHg Lue, reg cuff BP Diastolic Sitting 60 mmHg Lue, reg cuff Respiratory Rate 16 /min O2 % BldC Oximetry 98 % on Ra BMI (Body Mass Index) 25.5 kg/m2 Neck Circumference in inches 16 03/07/2013 11:43am Heart Rate 72 /min BP Systolic Sitting 120 mmHg BP Diastolic Sitting 70 mmHg Respiratory Rate 18 /min 11/04/2012 1:21pm Heart Rate 72 /min BP Systolic Sitting 124 mmHg BP Diastolic Sitting 80 mmHg Respiratory Rate 16 /min 09/09/2012 1:06pm Height 73 inches 6'1" Weight 190.00 lb Heart Rate 72 /min BP Systolic 110 mmHg BP Diastolic 70 mmHg Respiratory Rate 12 /min BMI (Body Mass Index) 25.1 kg/m2 07/19/2012 10:34am Heart Rate 76 /min BP Systolic Sitting 118 mmHg BP Diastolic Sitting 78 mmHg Respiratory Rate 16 /min 07/18/2012 1:28pm Height 72 inches 6'0" Weight 200.00 lb Heart Rate 80 /min BP Systolic Sitting 126 mmHg BP Diastolic Sitting 81 mmHg Body Temperature 98.1 F BMI (Body Mass Index) 27.1 kg/m2 07/11/2012 2:05pm Height 72 inches 6'0" Weight 200.00 lb Heart Rate 64 /min BP Systolic 110 mmHg BP Diastolic 80 mmHg Body Temperature 97.9 F BMI (Body Mass Index) 27.1 kg/m2 Results Test Date Facility Test Result H/L Range Note Laboratory test 01/19/2018 [facility] DBM Putty SEE RESULTS 1, [address] Orthoblast II [place]O <[place] [address] 5cc NOTE> [phone] Floseal SEE RESULTS BELO <SEE NOTE> 3 Laboratory test 01/14/2018 [facility] HCG < 0.60 mIU/ mL 4, [address] [place], [place] [phone] TSH (Thyroid Stim Horm) 2.80 mcIU/mL N 0.34-5.60 6 Type & Screen 01/14/2018 [facility] Patient Blood Type A Positive [address] [place] [address] [phone] Antibody Screen NEGATIVE Urinalysis Profile 01/14/2018 [facility] Urine Color [place] [address] [place] [address] [phone] Urine Appearance Clear Urine Specific [place] 1.015 N 1.010-1.030 Urine pH 5.0 N 5-9 Urine Urobilinogen Negative Negative Urine Ketones Negative Negative Urine Protein Negative Negative Urine Leukocytes Negative Negative Urine Blood Negative Negative Urine Nitrite Negative Negative Urine Bilirubin Negative Negative Urine Glucose Negative Negative Basic Metabolic Panel 01/14/2018 [facility] Sodium 139 mmol/L N 135-[address] [place] [address] [phone] Potassium 3.8 mmol/L N 3.5-5.0 Chloride 106 mmol/L N 101-111 Co2 Carbon Dioxide 27 mmol/L N 22-32 Anion Gap 6 mmol/L N 2-11 Glucose 84 mg/dL N 70-100 Blood Urea Nitrogen 10 mg/dL N 6-24 Creatinine 0.72 mg/dL N 0.51-0.95 BUN/Creatinine Ratio 13.9 N 8-20 Calcium 9.2 mg/dL N 8.6-10.3 Egfr Non- 93.9 >60 Egfr 113.6 >60 7 CBC No Diff 01/14/2018 [facility] White Blood 5.9 10^3/uL N 3.5-10.8 [address] [place] [address] [phone] Red Blood Count 4.19 10^6/uL N 4.00-5.40 Hemoglobin 12.9 g/dL N 12.0-16.0 Hematocrit 38 % N 35-47 Mean Corpuscular Volume 90 fL N 80-97 Mean Corpuscular Hemoglobin 31 pg N 27-31 Mean Corpuscular HGB Conc 34 g/dL N 31-36 Red Cell Distribution Width 14 % N 10.5-15 Platelet Count 295 10^3/uL N 150-450 Mean Platelet Volume 8.4 um3 N 7.4-10.4 Laboratory test 12/09/2017 [facility] Surgical SEE RESULT 8 , [address] Pathology BELOW [place] [id number] [phone] Laboratory test 10/12/2017 [facility] Surgical SEE RESULT 10, [address] [place] [place] [address] [phone] Laboratory test 06/03/2017 [facility] Surgical SEE RESULT 12, [address] [place] [address] [phone] Laboratory test 03/02/2017 [facility] Surgical SEE RESULT 14, [address] [place] [place] [address] [phone] CBC With Manual 12/15/2012 [facility] White Blood 7.5 10^3/uL 4.8-[address] Count 0.8 [place] [id number] [phone] Red Blood Count 4.28 10^6/uL 4.0-5.4 Hemoglobin 13.3 g/dL 12.0-16.0 Hematocrit 38 % 35-47 Mean Corpuscular Volume 90 fL 80-97 Mean Corpuscular Hemoglobin 31 pg 27-31 Mean Corpuscular HGB Conc 35 g/dL 31-36 Red Cell Distribution Width 13 % 10.5-15 Platelet Count 244 10^3/uL 150-450 Mean Platelet Volume 9 um3 7.4-10.4 Abs Neutrophils 5.1 10^3/uL 1.5-7.7 Abs Lymphocytes 1.5 10^3/uL 1.0-4.8 Abs Monocytes 0.7 10^3/uL 0-0.8 Abs Eosinophils 0.1 10^3/uL 0-0.6 Abs Basophils 0.1 10^3/uL 0-0.2 Abs Nucleated RBC 0 10^3/uL Neutrophil % 68 % 38-83 Band % 3 % 0-8 Lymphocytes % 19 % Low 25-47 Monocytes % 10 % 0-13 RBC Morphology Normal Normal Comp Metabolic Panel 12/15/2012 [facility] Sodium 136 mmol/L 133-[address] [place] [address] [phone] Potassium 3.8 mmol/L 3.5-5.0 Chloride 105 mmol/L 101-111 Co2 Carbon Dioxide 24.0 mmol/L 22-32 Anion Gap 7.0 mmol/L 2-11 Glucose 96 mg/dL 70-100 Blood Urea Nitrogen 18 mg/dL 6-24 Creatinine 0.70 mg/dL 0.50-1.40 BUN/Creatinine Ratio 25.7 High 8-20 Calcium 9.3 mg/dL 8.1-9.9 Total Protein 7.0 g/dL 6.2-8.1 Albumin 3.8 g/dL 3.6-5.4 Globulin 3.2 g/dL 2-4 Albumin/Globulin Ratio 1.2 1-3 Total Bilirubin 0.6 mg/dL 0.4-1.5 Alkaline Phosphatase 37 U/L 30-110 Alt 13 U/L Low 14-54 Ast 16 U/L 12-42 Egfr Non- 100.4 >60 Egfr 129.1 >60 16 Comp Metabolic Panel 11/01/2012 [facility] Sodium 135 mmol/L 133-[address] [place] [address] [phone] Potassium 4.0 mmol/L 3.5-5.0 Chloride 103 mmol/L 101-111 Co2 Carbon Dioxide 26.0 mmol/L 22-32 Anion Gap 6.0 mmol/L 2-11 Glucose 83 mg/dL 70-100 Blood Urea Nitrogen 7 mg/dL 6-24 Creatinine 0.90 mg/dL 0.50-1.40 BUN/Creatinine Ratio 7.8 Low 8-20 Calcium 9.6 mg/dL 8.1-9.9 Total Protein 6.6 g/dL 6.2-8.1 Albumin 3.9 g/dL 3.6-5.4 Globulin 2.7 g/dL 2-4 Albumin/Globulin Ratio 1.4 1-3 Total Bilirubin 0.7 mg/dL 0.4-1.5 Alkaline Phosphatase 36 U/L 30-110 Alt 11 U/L Low 14-54 Ast 14 U/L 12-42 Egfr Non- 75.7 >60 Egfr 97.3 >60 17 Laboratory test 11/01/2012 [facility] Creatine 90 U/L 0-[address] [place] [address] [phone] CBC With Manual 11/01/2012 [facility] White Blood 4.5 Low 4.8- 10.[address] Count 10^3/[place] [address] [phone] Red Blood Count 4.54 10^6/uL 4.0-5.4 Hemoglobin 13.7 g/dL 12.0-16.0 Hematocrit 41 % 35-47 Mean Corpuscular Volume 91 fL 80-97 Mean Corpuscular Hemoglobin 30 pg 27-31 Mean Corpuscular HGB Conc 33 g/dL 31-36 Red Cell Distribution Width 13 % 10.5-15 Platelet Count 300 10^3/uL 150-450 Mean Platelet Volume 9 um3 7.4-10.4 Abs Neutrophils 2.4 10^3/uL 1.5-7.7 Abs Lymphocytes 1.4 10^3/uL 1.0-4.8 Abs Monocytes 0.5 10^3/uL 0-0.8 Abs Eosinophils 0.1 10^3/uL 0-0.6 Abs Basophils 0.1 10^3/uL 0-0.2 Abs Nucleated RBC 0 10^3/uL Neutrophil % 50 % 38-83 Band % 1 % 0-8 Lymphocytes % 31 % 25-47 Monocytes % 12 % 0-13 Eosinophils % 6 % 0-6 RBC Morphology Normal Normal Laboratory test 07/28/2012 [facility] Smooth Muscle Positive 1: 20 Negative [address] [place] [address] [phone] Anti Ssa/Ro Antibody <0.2 U 19 Adebayo (Anti-Nuclear AB) Screen Reflexed to FA Abnormal Negative Adebayo Hep-2 07/28/2012 [facility] Adebayo Pattern Negative Negative [address] [place] [address] [phone] Adebayo Reviewed By MD Gurvinder Taylor <SEE NOTE> 21 Laboratory test 07/28/2012 [facility] Anti Double Negative Negative finding [address] [place] [address] [phone] Miscellaneous Test 07/19/2012 [facility] Test Name LYME Ab [address] (CSF) [place] [address] [phone] Result See Comment 22 Laboratory test 07/19/2012 [facility] CSF Angiotension <4 ACEUnits [address] [place] [address] [phone] Body Fluid Cell 07/19/2012 [facility] Body Fluid Source Cerebral Count [address] [place] [address] [phone] Body Fluid Appearance Clear Body Fluid Color Colorless CSF Tube # 4 Body Fluid Volume 3 mL Body Fluid WBC 1 Body Fluid RBC 2 Body Fluid Lymph 3 Body Fluid Other Cells 2 Body Fluid Total Cells Counted 5 Fluid Reviewed By MD (SEE NOTE) 24 Body Fluid 07/19/2012 [facility] Body Fluid Cerebral Spinal Cell Count [address] [place] [address] [phone] Body Fluid Appearance Clear Body Fluid Color Colorless CSF Tube # 1 Body Fluid Volume 3 mL Body Fluid WBC 2 Body Fluid RBC 58 Body Fluid Lymph 2 Body Fluid Other Cells 2 Body Fluid Total Cells Counted 4 Fluid Reviewed By MD (SEE NOTE) 25 Cytology 07/19/2012 [facility] Jessica RUN DATE: 26 Non-Pin Drafting Machine Tender [address] <[place] [address] NOTE> [phone] Lyme Western 07/11/2012 [facility] Lyme Disease Negative Negative [place] [address] [phone] Lyme Disease IgG Bands Present p66, kDa Lyme Disease IgM Ab WB Negative Negative Lyme Disease IgM Bands Present p39, kDa Lyme Disease Interpretation See Comment 27 Laboratory 07/11/2012 [facility] Lyme Positive Negative [address] [place] [address] Serology [phone] Laboratory 06/21/2012 [facility] Adebayo Reflexed to Abnormal Negative test finding DRIVE ([place] [address] ar AB) [phone] Screen Adebayo Hep-2 06/21/2012 [facility] Adebayo Pattern Speckled Negative [address] [place] [address] [phone] Adebayo Titer 1:160 <1:80 Adebayo Reviewed By MD Gurvinder Taylor <SEE NOTE> 29 Laboratory test 06/21/2012 [facility] Lyme Disease Equivocal Negative [address] [place] [address] [phone] Lyme Western 06/21/2012 [facility] Lyme Disease Negative Negative Blot [address] [place] [address] [phone] Lyme Disease IgG Bands Present p66, p41, p28, kDa Lyme Disease IgM Ab WB Positive Negative Lyme Disease IgM Bands Present p41, p39, p23, kDa Lyme Disease Interpretation See Comment 31 Catecholamine 24HR 06/27/2011 [facility] Urine Collection 24 h () Urine Fract [address] [place] [address] [phone] Urine Total Volume 2750 mL () Norepinephrine 16 mcg/24h 15-80 Epinephrine 1.4 mcg/24h 0.0-20.0 Dopamine 311 mcg/24h 65-400 32 1 NEUROFIBROMATOSIS, TYPE 1, SPINAL STENOSIS, LUMBAR 2 SEE RESULTS BELOW [id number] DBM PUTTY 5CC TRANSFUSED 01/20/18630 3 SEE RESULTS BELOW [id number] FLOSEAL TRANSFUSED 01/20/18630 4 AA 01/20 5 <5.0 Negative 5.0 - 25.0 Indeterminate (Repeat testing recommended after 72 hours) >25.0 Positive Perimenopausal women can display HCG levels of up to 20 mIU/mL 6 AA 01/20 7 Because ethnic data is not always readily available, this report includes an eGFR for both -Americans and non- Americans. The National Kidney Disease Education Program (NKDEP) does not endorse the use of the MDRD equation for patients that are not between the ages of 18 and 70, are , have extremes of body size, muscle mass, or nutritional status, or are non- or non-. According to the National Kidney Foundation, irrespective of diagnosis, the stage of the disease is based on the level of kidney function: Stage Description GFR(mL/min/1.73 m(2)) 1 Kidney damage with normal or decreased GFR 90 2 Kidney damage with mild decrease in GFR 60-89 3 Moderate decrease in GFR 30-59 4 Severe decrease in GFR 15-29 5 Kidney failure <15 (or dialysis) 8 [id number] 9 SEE RESULT BELOW Name: AISHWARYA OLIVARES : [address]: Doug Huff MD Acct: [id number] Unit: [id number] AGE: 32 Location: [facility] Re12/09/17 SEX: F Status: DEP SD SPEC: [id number] HUA: 12/09/17-151 [facility] DR: Doug Huff MD REQ: [id number] RECD: 12/09/17 STATUS: SOUT _ ORDERED: LEVEL 3/2 COMMENTS: [id number] FINAL DIAGNOSIS 1. Soft tissue, left thumb, excision: -- Neurofibroma. 2. Soft tissue, left middle finger, excision: -- Neurofibroma. PRE-OPERATIVE DIAGNOSIS Left middle and left thumb masses. GROSS DESCRIPTION 1. The specimen is received in formalin labeled, Left Thumb Neurofibroma, and consists of a 1.3 x 0.8 by up to 0.4 cm white-pink fibro-nodular rubbery tissue fragment , which is inked, serially sectioned and entirely submitted in one cassette. 2. The specimen is received in formalin labeled, Left Middle Finger Neurofibroma, and consists of a 1.2 x 1.1 x 1.0 cm yellow-white fibronodular rubbery tissue fragments, which is inked, serially sectioned and submitted entirely in one cassette. Signed by and Reported on: Gurvinder Brown MD 1611 END OF REPORT DEPARTMENT OF PATHOLOGY, [address] [place] [address] Gurvinder Brown M.D. Director [facility] # [id number] 10 [id number] 11 SEE RESULT BELOW Name: AISHWARYA OLIVARES : [address]: Lenin Browne MD Acct: [id number] Unit: [id number] AGE: 31 Location: [facility] Re10/12/17 SEX: F Status: REG REF SPEC: [id number] HUA: 10/12/17-1199 [facility] DR: Lenin Browne MD REQ: [id number] RECD: 10/12/17 STATUS: SOUT _ ORDERED: LEVEL 4 COMMENTS: [id number] FINAL DIAGNOSIS Skin, right knee, biopsy: -- Neurofibroma. -- Lesional cells extend to the biopsy base. CLINICAL HISTORY No history given GROSS DESCRIPTION The specimen is received in formalin labeled, Right Knee Lesion, and consists of a 0.4 cm ramos-white hairbearing bulbous circular skin punch excised to a maximum depth of 0.3 cm which is bisected and submitted entirely in one cassette. Signed by and Reported on: Ivy Green MD 10/15/17 0948 END OF REPORT DEPARTMENT OF PATHOLOGY, [address] [place] [address] Gurvinder Brown M.D. Director [facility] # [id number] 12 [id number] 13 SEE RESULT BELOW Name: ELISEAISHWARYA E : [address]: Lenin Sharpe MD Acct: [id number] Unit: [id number] AGE: 31 Location: [facility] Re06/03/17 SEX: F Status: URBANO SDC SPEC: [id number] HUA: 06/03/17-1055 [facility] DR: Lenin Sharpe MD REQ: [id number] RECD: 06/03/17 STATUS: BOUBACAR SELBY DR: Oscar Altman MD _ ORDERED: LEVEL 4 COMMENTS: [id number] FINAL DIAGNOSIS Skin, right side of nose, excision: -- Neurofibroma. -- Lesional cells extend to bilateral specimen edges and focally to the specimen base. PRE-OPERATIVE DIAGNOSIS Neurofibroma right side of nose GROSS DESCRIPTION The specimen is received in formalin labeled, Excision Neurofibroma Right Side of Nose, and consists of a 1.5 x 1.0 x 0.8 cm ramos-pink irregular rubbery portion of subcutaneous soft tissue partially surfaced by a 0.9 x 0.8 cm ramos-white ovoid skin fragment. The specimen is inked, serially sectioned and entirely submitted in one cassette. Signed (signature on file) Ivy Green MD 12/14 1151 END OF REPORT DEPARTMENT OF PATHOLOGY, [address] [place] [address] Gurvinder Brown M.D. Director [facility] # [id number] 14 [id number] 15 SEE RESULT BELOW Name: AISHWARYA OLIVARSE : [address]: Lenin Browne MD Acct: [id number] Unit: [id number] AGE: 31 Location: [facility] Re03/02/17 SEX: F Status: REG REF SPEC: [id number] HUA: 03/02/17-[address]: Lenin Browne MD REQ: [id number] RECD: 03/02/17 STATUS: SOUT _ ORDERED: LEVEL 4/2 COMMENTS: [id number] FINAL DIAGNOSIS 1. Skin, left chest, excision: -- Neurofibroma. 2. Skin, back, excision: -- Neurofibroma. See comment. 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 Correlation with clinical findings is suggested. Consideration of genetic testing for neurofibromatosis syndromes may be considered as warranted. Dr. Green has reviewed this case and concurs. CLINICAL HISTORY No history given PRE-OPERATIVE DIAGNOSIS GROSS DESCRIPTION 1. The specimen is received in formalin labeled, Left Chest Cyst, and consists of a 1.5 x 1.1 cm ramso-white wrinkled hairbearing unoriented skin ellipse excised to a depth of 0.7 cm predominantly surfaced by a 1.5 x 1.5 x 1.1 cm ramos-pink wrinkled rubbery nodule. The cut surface is waxy to gelatinous translucent ramos. The specimen is inked, serially sectioned and architectural representative sections are submitted in one cassette. 2. The specimen is received in formalin labeled, Back Cyst, and consists of a 1.1 x 0.8 x 0.7 cm ramos-white smooth ovoid rubbery nodule with abundant adherent yellow fat. The cut CONTINUED ON NEXT PAGE * ML=Testing performed at Main Lab DEPARTMENT OF PATHOLOGY, [address] [place] [address] Gurvinder Brown M.D. Director [facility] # [id number] RUN DATE: 03/04/17 [facility] LAB LIVE PAGE 2 Patient: AISHWARYA OLIVARES [id number] (Continued) GROSS DESCRIPTION (Continued) GROSS DESCRIPTION (Continued) surface is rubbery translucent ramos-white. The specimen is inked, serially sectioned and entirely submitted in one cassette. Signed (signature on file) Gurvinder Brown MD 1639 END OF REPORT * ML=Testing performed at Main Lab DEPARTMENT OF PATHOLOGY, [address] [place] [address] Gurvinder Brown M.D. Director [facility] # [id number] 16 Because ethnic data is not always readily available, this report includes an eGFR for both -Americans and non- Americans. The National Kidney Disease Education Program (NKDEP) does not endorse the use of the MDRD equation for patients that are not between the ages of 18 and 70, are , have extremes of body size, muscle mass, or nutritional status, or are non- or non-. According to the National Kidney Foundation, irrespective of diagnosis, the stage of the disease is based on the level of kidney function: Stage Description GFR(mL/min/1.73 m(2)) 1 Kidney damage with normal or decreased GFR 90 2 Kidney damage with mild decrease in GFR 60-89 3 Moderate decrease in GFR 30-59 4 Severe decrease in GFR 15-29 5 Kidney failure <15 (or dialysis) 17 Because ethnic data is not always readily available, this report includes an eGFR for both -Americans and non- Americans. The National Kidney Disease Education Program (NKDEP) does not endorse the use of the MDRD equation for patients that are not between the ages of 18 and 70, are , have extremes of body size, muscle mass, or nutritional status, or are non- or non-. According to the National Kidney Foundation, irrespective of diagnosis, the stage of the disease is based on the level of kidney function: Stage Description GFR(mL/min/1.73 m(2)) 1 Kidney damage with normal or decreased GFR 90 2 Kidney damage with mild decrease in GFR 60-89 3 Moderate decrease in GFR 30-59 4 Severe decrease in GFR 15-29 5 Kidney failure <15 (or dialysis) 18 Test Performed by: [place] [address] Photographer Assistant: Jhonathan Salamanca III, M.D. 19 -- REFERENCE VALUE -- <1.0 (Negative) Test Performed by: [place] [address] Photographer Assistant: Jhonathan Salamanca III, M.D. 20 A number of healthy individuals have positive antinuclear antibody (ADEBAYO) screen results, many of which are likely to be clinical false-positives; the Fluorescent Antibody test is a second-order test which has shown to have a negative discernible ADEBAYO pattern. 21 Gurvinder Brown 22 Lyme Disease Ab IgG <1:4 Lyme Disease Ab IgM <1:1 Interpretation See Comment ANTIBODY NOT DETECTED REFERENCE RANGES: IgG <1:4 IgM <1:1 Diagnosis of infections of the central nervous system can be done by demonstrating the presence of intrathecally-produced specific antibody. However, interpreting results is complicated by low antibody levels found in CSF, passive transfer of antibody from blood, and contamination via bloody taps. The interpretation of CSF results must consider CSF-serum antibody ratios to the infectious agent. However, demonstration of class specific antibody IgM in CSF may be diagnostic. The intrathecal synthesis of Lyme disease antibody is most accurately measured by performing the Lyme Disease Antibody Index for PEDIATRIC RN Infection. This assay was developed and its performance characteristics have been determined by [email or web address]. It has not been cleared or approved by the U.S. Food and Drug Administration. The FDA has determined that such clearance or approval is not necessary. Performance characteristics refer to the analytical performance of the test. Test Performed by: [facility] [address] [place] [phone] REFERENCE RANGE: <4 OLIVA Units INTERPRETIVE CRITERIA: <4 OLIVA Units Normal Level > or=4 OLIVA Units Increased Level CSF levels of angiotensin converting enzyme (OLIVA) are increased in approximately 50% of patients with neurosarcoidosis, but in less than 10% of systemic sarcoidosis patients without neurologic manifestations. This test was developed and its performance characteristics have been determined by [email or web address]. Performance characteristics refer to the analytical performance of the test. Test Performed by: [email or web address]. [address] [place] [phone] REVIEWED BY GURVINDER BROWN MD Slide and differential reviewed. No bacteria, blasts or other malignant cells seen. 25 REVIEWED BY GURVINDER BROWN MD Slide and differential reviewed. No bacteria, blasts or other malignant cells seen. 26 RUN DATE: 07/19/12 [facility] LAB LIVE PAGE 1 RUN TIME: [address] [place] [id number] Specimen Inquiry Name: AISHWARYA OLIVARES: [address]: Johan Nielsen MD Acct: [id number] Unit: [id number] AGE: 26 Location: PAIN Re07/19/12 SEX: F Status: REG REF SPEC: [id number] HUA: 07/19/[address]: Johan Nielsen MD REQ: [id number] RECD: 07/19/12 STATUS: BOUBACAR SELBY DR: Sarah Brandt MD _ ORDERED: THIN PREP NON G FINAL DIAGNOSIS CEREBROSPINAL FLUID: Rare blood elements only. 1. Cerebrospinal Fluid - TUBE #3 PRE-OPERATIVE DIAGNOSIS GROSS DESCRIPTION 4 mls of clear colorless CSF in tube #3 Signed (signature on file) Gurvinder Brown MD 1609 END OF REPORT * ML=Testing performed at Main Lab DEPARTMENT OF PATHOLOGY, [address] [place] [address] Gurvinder Brown M.D. Director [facility] Permit #[id number] 27 Specific serologic response to B. burgdorferi infection is not detected, but cannot rule out early infection during which low or undetectable antibody levels to B. burgdorferi may be present. If clinically indicated, a new serum specimen should be submitted in 7-14 days. CDC criteria require >=5 bands for IgG or >=2 bands for IgM for the Immunoblot to be considered positive. Bands (e.g.,p41) may be detected in patients without Lyme disease, and patterns not meeting the CDC criteria should be interpreted with caution. Immunoblot should be ordered only on specimens that are positive or equivocal by a FDA-licensed Lyme disease antibody screening test (e.g., EIA). Test Performed by: [place] [address] Photographer Assistant: Jhonathan Salamanca III, M.D. 28 Not diagnostic. Supplemental testing ordered by reflex. Test Performed by: [place] [address] Photographer Assistant: Jhonathan Salamanca III, M.D. 29 Gurvinder Brown 30 Not diagnostic. Supplemental testing ordered by reflex. Test Performed by: [place] [address] Photographer Assistant: Jhonathan Salamanca III, M.D. 31 Consistent with early infection with Borrelia burgdorferi. A new serum specimen should be submitted in 14-21 days to demonstrate seroconversion of IgG. IgM blot criteria is of diagnostic utility only during the first 4 weeks of early Lyme disease. CDC criteria require >=5 bands for IgG or >=2 bands for IgM for the Immunoblot to be considered positive. Bands (e.g.,p41) may be detected in patients without Lyme disease, and patterns not meeting the CDC criteria should be interpreted with caution. Immunoblot should be ordered only on specimens that are positive or equivocal by a FDA-licensed Lyme disease antibody screening test (e.g., EIA). Test Performed by: [place] [address] Photographer Assistant: Jhonathan Salamanca III, M.D. 32 Test Performed by: [facility] [address] [place] [address] Photographer Assistant: Jhonathan Salamanca III, M.D. Procedures Date Code Description Status 01/20/2018 84620 Insertion Interbody Biomechanical Device; Each Completed Interspace 01/20/2018 65403 Anterior Instrumentation 2-3 Vertebral Segments Completed 01/20/2018 28027 additional level cervical below C2 Completed 01/20/2018 10073 arthrodesis,anterior interbody incl disc space Completed prep,discectomy,de 01/20/201827828 Autograft For Spine Surgery (Incls Harvesting The Completed Graft) 01/20/2018 Allograft For Spine Surgery, Morselized Completed 01/14/2018 20262 EKG, Interpretation Only Completed 12/09/2017 56429 Excision Tumor/Vasular Malform Hand/Finger Subfascial Completed < 1.5 CM 12/09/2017 69180 Excision Tumor/Vasular Malform Hand/Finger Subfascial Completed < 1.5 CM 12/09/2017 38615 Excision Tumor,Soft Tissue Of Hand Or Finger Subq Completed 12/09/2017 10355 Excision Tumor,Soft Tissue Of Hand Or Finger Subq Completed 10/12/2017 99992 Biopsy Skin Lesion Single Completed 03/12/2017 94447 Polysomnography Sleep Staging 4+ Parameters Completed 03/02/2017 38774 Excise Benign lesion 1.1-2CM Trunk/Arm/Leg Completed 03/02/2017 89147 Excise Benign Lesion 2.1-3CM Trunk/Arm/Leg Completed 07/26/2013 92486 ECHO Transthorasic Realtime 2D W Doppler & Color Flow Completed Hosp 07/26/2013 75164 EKG, Interpretation Only Completed 07/24/2013 47960 EEG Recording Awake & Drowsy Completed 07/23/2013 49703 EKG, Interpretation Only Completed 03/27/2013 272056693 Diabetic Retinal Eye Exam Completed 01/30/2013 846911316 Diabetic Retinal Eye Exam Completed 11/09/2012 196095509 Diabetic Retinal Eye Exam Completed 06/30/2012 971647761 Diabetic Retinal Eye Exam Completed 06/29/2012 [id number] Diabetic Retinal Eye Exam Completed 06/21/2012 18883 Visual Evoked Potential Test PEDIATRIC RN Completed 06/15/2012 816040310 Diabetic Retinal Eye Exam Completed 06/09/2012 718039309 Diabetic Retinal Eye Exam Completed Encounters Type Date Location Provider Dx Diagnosis Office Visit 04/25/2018 [facility] Z48.89 Encounter for 2:30p Of Michael Sharma MD other specified surgical aftercare Office Visit 04/22/2018 [facility] Lenin Marks, Q85.01 Neurofibromatos 3:30p is, type 1 M47.12 Other spondylosis with myelopathy, cervical region Office Visit 01/22/2018 10:42a [facility] Antionette Armstrong, EXECUTIVE ASST R51 Headache Hospitalists Z98.890 Other specified postprocedural states 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 R22.32 Localized swelling, mass and lump, left upper limb Office 10/21/2017 [facility] Lenin Q85.01 Neurofibromatosis, Visit 11:00a Clinic MD Selina type 1 M50.90 Cervical disc disorder, unsp, unspecified cervical region R20.2 Paresthesia of skin M48.02 Spinal stenosis, cervical region Office 10/11/2017 [facility] Q85.01 Neurofibromatosis, Visit 11:15a Clinic MD Selina type 1 M54.2 Cervicalgia M79.2 Neuralgia and neuritis, unspecified Office 04/14/2017 [facility] Q85.01 Neurofibromatosis, Visit 9:15a Clinic MD Selina type 1 G43.409 Hemiplegic migraine, not intractable, w/o status migrainosus G44.59 Other complicated headache syndrome Office Visit 03/26/2017 Pulmonology And Irma G47.00 Insomnia, 10:00a Sleep Services Of PETE Albrecht, RN, unspecified [facility] [employer] WORKER-BC G47.8 Other sleep disorders G47.10 Hypersomnia, unspecified Office 02/23/2017 [facility] Lenin Mckeon Q85.01 Neurofibromatosis, Visit 10:30a Of zhanna Spivey M.D. 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 complicated Hospitalists headache syndrome Office Visit [facility]/19[facility]2017 [facility] G44.59 Other 12:44p Assoc,rené MARRUFO M.D. complicated Hospitalists headache syndrome Office Visit 11/23/2016 [facility] And Zabrina Robert, G47.8 Other sleep 11:30a Sleep Services Of MD reno Rodriguez G89.29 Other chronic pain G47.10 Hypersomnia, unspecified Office Visit 10/24/2014 [facility] Sarah Arce 339.89 Other Headache 9:15a Clinic Amalia Brandt Syndromes V22.2 State Incidental Normal Office Visit 07/29/2013 [facility] Inderjit Mckeon 237.71 Neurofibromatosis Type 12:02p Assoc,rené Mccray Hospitalists Amalia Hyman Disease 339.89 Other Headache Syndromes 346.10 Migraine Common W/O Intractable W/O Status Migrainosus 300.4 Dysthymic Disorder Office 07/28/2013 [facility] Bari Goodman 346.93 Migraine Unspecified, Visit 9:49a Services Of Michael Marrero M.D. W/Intractable Migraine Office 07/28/2013 [facility] Inderjit Mckeon 237.71 Neurofibromatosis Type Visit 12:01p Assoc,Ness Sahni M.D. Disease 339.89 Other Headache Syndromes 346.10 Migraine Common W/O Intractable W/O Status Migrainosus 300.4 Dysthymic Disorder Office Visit 07/27/2013 [facility] Inderjit Mckeon 237.71 Neurofibromatosis Type 12:01p Assoc,rené Lopez [facility] H[facility] M.[facility]. Disease 339.89 Other Headache Syndromes 346.10 Migraine Common W/O Intractable W/O Status Migrainosus 300.4 Dysthymic Disorder Office 07/27/2013 [facility] Sarah Arce 346.93 Migraine Unspecified, Visit 10:28a Services Of Michael Brandt M.D. W/Intractable Migraine Office 07/26/2013 [facility] Berenice Stock, 237.71 Neurofibromatosis Visit 11:59a Assoc,rené DO Type I Hospitalists Re[facility]ling[facility] Disease 346.10 Migraine Common W/O Intractable W/O Status Migrainosus 339.89 Other Headache Syndromes 300.4 Dysthymic Disorder Office 07/26/2013 [facility] Inderjit Goodman 346.93 Migraine Unspecified, Visit 9:49a Services Of Michael Marrero M.D. W/Intractable Migraine Office 07/25/2013 [facility] Berenice 237.71 Neurofibromatosis Type Visit 11:58a Assrené zambrano DO I [facility] Disease 339.89 Other Headache Syndromes 346.10 Migraine Common W/O Intractable W/O Status Migrainosus 300.4 Dysthymic Disorder Office Visit 07/25/2013 [facility] Bari Goodman 346.93 Migraine 9:48a Services Of Michael Marrero M.D. Unspecified, W/Intractable Migraine Office Visit 07/24/2013 [facility] Berenice Stock, 339.89 Other Headache 11:57a Assoc,rené DO Syndromes Hospitalists 237.71 Neurofibromatosis Type I Re[facility]linghausens Disease 346.10 Migraine Common W/O Intractable W/O Status Migrainosus 300.4 Dysthymic Disorder Office Visit 07/24/2013 [facility] Chey Valle, 346.93 Migraine 9:46a Neurologic Amalia Unspecified, Services Of [facility] W/Intractable Migraine 782.0 Skin Sensation Disturbance 786.05 Shortness Of Breath 780.97 Altered Mental Status Office Visit 07/23/2013 [facility] Chey Valle, 346.93 Migraine 9:45a Neurologic Amalia Unspecified, Services Of [facility] W/Intractable Migraine 787.02 Nausea Alone 786.50 Pain Chest Unspec Office Visit 07/23/2013 [facility] Sanjuanita 237.71 Neurofibromatosis Type 11:57a Assocrené M.D. [facility] Hospital[facility] Disease 339.89 Other Headache Syndromes Office Visit 07/22/2013 [facility] Bari Goodman 346.93 Migraine 9:44a Services Of [facility] Amalia Marrero Unspecified, W/Intractable Migraine Office Visit 07/21/2013 [facility] Blake Yang 339.89 Other Headache 11:54a Assoc,rené Bourne M.D. Syndromes Hospitalists Hospitalist 237.71 Neurofibromatosis Type I [facility] Disease Office Visit 07/21/2013 [facility] Jewel 346.93 Migraine 9:40a Bari Goodman M.D. Unspecified, Services Of [facility] W/Intractable Migraine 237.70 Neurofibromatosis Unspec 782.0 Skin Sensation Disturbance Office Visit 03/07/2013 11:30a Vicki Arce 346.91 Migraine Unspec Neurologic Amalia Brandt W/ Intractable Services Of [employer] Rater W/O Status Migrainosus Office Visit 11/04/2012 1:15p Vicki Arce 346.91 Migraine Unspec Neurologic Amalia Brandt W/ Intractable Services Of [employer]mod[employer] Rater W/O Status Migrainosus 368.9 Visual Disturbances Unspec Office Visit 09/09/2012 1:00p Vicki Arce 346.91 Migraine Unspec Neurologic Amalia Brandt W/ Intractable Services Of Travel [employer]ommod[employer] Rater W/O Status Migrainosus 368.9 Visual Disturbances Unspec Office Visit 07/19/2012 10:45a Vicki Arce 346.91 Migraine Unspec Neurologic Amalia Brandt W/ Intractable Services Of Travel [employer]ommod[employer] Rater W/O Status Migrainosus 369.9 Visual Loss Unspec Office Visit 07/18/2012 1:20p [facility] Bernardo Yang 369.9 Visual Loss For Rashad Messina M.D. Unspec Diseases Office Visit 07/11/2012 2:00p [facility] Bernardo Yang 369.9 Visual Loss For Infectious Amalia Messina Unspec Diseases Office Visit 06/13/2012 11:30a Vicki Arce 346.91 Migraine Unspec Neurologic Amalia Brandt W/ Intractable Services Of [facility] W/O Status Migrainosus 369.9 Visual Loss Unspec Office Visit 01/19/2012 11:00a Vicki Arce 346.91 Migraine Unspec Neurologic Amalia Brandt W/ Intractable Services Of [facility] W/O Status Migrainosus V22.2 State Incidental Normal Plan of Treatment Future Appointment(s):07/19/2018 10:00 am - Lenin Marks MD at [facility] Zecxdv5407/25/2018 1:00 pm - Angeles Sharma MD at [facility]05/18/2018 - Lenin Marks MDQ85.01 Neurofibromatosis, type 1Comments:Occipital pain most likely an occipital neuralgia and will increase her gabapentin for now but will refer to pain clinic for an occipital nerve block. Has trouble sleeping due to pain and will increase right now to 300mg in am and 900mg in pm and if pain persists in a week will increase to 600mg in am and 900mg in pm Discussed if things do not improve may do further imaging but has had this for years with mri scans not showing an etiology in interimReferral:Raine Wong MD, Pain Management- anesthesiFollow up:8 ZIAYEY61.81 Occipital neuralgia
[2018-06-05 15:03] LABS: ABS Basophils 0.1 10^3/ul (0-0.2); ABS Eosinophils 0.1 10^3/ul (0-0.6); ABS Lymphocytes 1.6 10^3/ul (1.0-4.8); ABS Monocytes 0.6 10^3/ul (0-0.8); ABS Nucleated RBC 0 10^3/ul; Eosinophil % 1.4 %; Hematocrit 40 % (35-47); Hemoglobin 13.3 g/dl (12.0-16.0); Lymphocyte % 21.6 %; Mean Corpuscular HGB Conc 34 g/dl (31-36); Mean Corpuscular Hemoglobin 31 pg (27-31); Mean Corpuscular Volume 93 fL (80-97); Mean Platelet Volume 7.7 fL (7.4-10.4); Nucleated Red Blood Cells % 0.1; Platelet Count 329 10^3/ul (150-450); Red Blood Count 4.28 10^6/ul (4.00-5.40); Red Cell Distribution Width 13 % (10.5-15); White Blood Count 7.3 10^3/ul (3.5-10.8)
[2018-06-05 15:16] LABS: Urine Appearance Cloudy; Urine Bacteria Absent (Absent); Urine Bilirubin Negative (Negative); Urine Blood Negative (Negative); Urine Color Yellow; Urine Glucose Negative (Negative); Urine Ketones Negative (Negative); Urine Nitrite Negative (Negative); Urine Protein Negative (Negative); Urine Red Blood Cell 1+(3-5/hpf) (Absent); Urine Specific Gravity 1.012 (1.010-1.030); Urine Squamous Epithelial Cell Present (Absent); Urine Urobilinogen Negative (Negative); Urine White Blood Cell Trace(0-5/hpf) (Absent)
[2018-06-05 15:19] LABS: ALT 20 U/L (7-52); AST 18 U/L (13-39); Albumin 4.2 g/dL (3.2-5.2); Albumin/Globulin Ratio 1.7 (1-3); Alkaline Phosphatase 48 U/L (34-104); Anion Gap 4 mmol/L (2-11); BUN/Creatinine Ratio 10.3 (8-20); Blood Urea Nitrogen 8 mg/dL (6-24); C Reactive Protein < 1.00 mg/L (<8.01); CO2 Carbon Dioxide 28 mmol/L (22-32); Calcium 8.9 mg/dL (8.6-10.3); Chloride 105 mmol/L (101-111); EGFR African American 103.6 (>60); EGFR Non-African American 85.6 (>60); Globulin 2.5 g/dL (2-4); Glucose 76 mg/dL (70-100); Potassium 4.1 mmol/L (3.5-5.0); Sodium 137 mmol/L (135-145); Total Protein 6.7 g/dL (6.4-8.9)
[2018-06-05 15:24] LABS: HCG Pregnancy < 0.60 mIU/mL
[2018-06-05] MEDS ORDERED: NS 0.9% 1000 ML** 1,000 ML IV ONE (16:09)
[2018-06-05] MEDS ORDERED: Ketorolac INJ* 30 MG/ML 1 ML VIAL IV PUSH ONE (16:10)
[2018-06-05] MEDS ORDERED: diPHENhydraMINE PO* 25 MG PO ONE (17:36)
[2018-06-05] MEDS ORDERED: PROCHLORPERAZINE INJ 5 MG/ML 2 ML VIAL IV ONE (17:36)
--- NOTE | 2018-06-05 17:36 | ED ---
Complex/Multi-Sys Presentation - HPI Summary HPI Summary: Pt. is a 32 y.o female who presents to the ER with complaints of headache, left flank pain and nausea. Pt. has a hx of neurofibroma, migraines and family hx of PKD. Pt.'s family member also notes that pt. has been confused today and not remembering some events. She givens example that she came over to pt.'s house today to check on her when pt. took a nap and then when pt. woke up she did not remember her coming over. Pt. sees Dr. Marks for neurology. Sxs are moderate in severity. No current modifying factors. Pt. otherwise denies fever, chills, cough, CP, SOB, dysuria, hematuria, vaginal dc or bleeding, numbness, tingling or weakness. - History Of Current Complaint Chief Complaint: EDFlankPain Time Seen by Provider: 06/05/18 15:45 Hx Obtained From: Patient, Family/Desk Sergeant - Allergies/Home Medications Allergies/Adverse Reactions: Allergies Allergy/AdvReac Type Severity Reaction Status Date / Time prednisone Allergy Severe Hallucinati Verified 06/05/18 14:15 ons Adhesive Tape [Plastic Tape] Allergy Intermediate Rash Verified 06/05/18 14:15 coconut Allergy Mild Rash Verified 06/05/18 14:15 Home Medications: Home Medications DULoxetine DR CAP* [Cymbalta CAP*] 20 mg PO BID 06/05/18 [History Confirmed 01/14] Gabapentin 900 mg PO BEDTIME 06/05/18 [History Confirmed 06/05/18] PMH/Surg Hx/FS Hx/Imm Hx Previously Healthy: Yes Endocrine/Hematology History: Denies: Hx Diabetes, Hx Systemic Lupus Erythematosus, Hx Thyroid Disease, Hx Anemia Cardiovascular History: Reports: Hx Hypertension - ON MEDICATION FOR Denies: Hx Congestive Heart Failure, Hx Pacemaker/ICD, Other Cardiovascular Problems/Disorders Respiratory History: Reports: Hx Asthma - neurofibromatosis;migraine Denies: Hx Chronic Obstructive Pulmonary Disease (COPD), Other Respiratory Problems/Disorders GI History: Denies: Hx Ulcer, Other GI Disorders History: Denies: Hx Dialysis, Hx Renal Disease, Other Problems/Disorders Musculoskeletal History: Reports: Other Musculoskeletal History - 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 ON 12/07/17 PER PATIENT Denies: Hx Rheumatoid Arthritis Sensory History: Reports: Hx Contacts or Glasses - GLASSES, Hx Legally Blind - Right eye Denies: Hx Cataracts, Hx Eye Injury, Hx Eye Prosthesis, Hx Glaucoma, Hx Macular Degeneration, Hx Vision Problem, Hx Deafness, Hx Hearing Aid, Hx Hearing Problem Opthamlomology History: Reports: Hx Contacts or Glasses - GLASSES, Hx Legally Blind - Right eye Denies: Hx Cataracts, Hx Eye Injury, Hx Eye Prosthesis, Hx Glaucoma, Hx Macular Degeneration, Hx Vision Problem Neurological History: Reports: Hx Headaches, Hx Migraine - CONSTANT, Hx Nerve Disease - NEUROFIBROMATOSIS- TYPE I, 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 Denies: Hx Dementia, Hx Developmental Delay, Hx Seizures, Hx Spinal Cord Injury, Hx Transient Ischemic Attacks (TIA) Psychiatric History: Reports: Hx Anxiety - ON MEDICATION FOR, Hx Depression - ON MEDICATION FOR Denies: Hx Panic Disorder - Cancer History Hx Chemotherapy: No - Surgical History Surgery Procedure, Year, and Place: 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 EXTRACTION OF NEUROMAS - ARMS, Rt INDEX FINGER, NOSE. WISDOM TEETH Hx Anesthesia Reactions: No - Immunization History Date of Tetanus Vaccine: Unknown Infectious Disease History: No Infectious Disease History: Denies: Hx Clostridium Difficile, Hx Hepatitis, Hx Human Immunodeficiency Virus (HIV), Hx of Known/Suspected MRSA, Hx Shingles, Hx Tuberculosis, Hx Known/ Suspected VRE, Hx Known/Suspected VRSA, Traveled Outside the [place] in Last 30 Days - Family History Known Family History: Positive: Other - Asthma, cancer, DM, heart disease, migraine, thyroid disease, [place]. Family History: Asthma, cancer, DM, heart disease, migraine, thyroid disease, [place]. - Social History Alcohol Use: None Substance Use Type: Reports: None Smoking Status (MU): Former Smoker Type: Cigarettes Amount Used/How Often: 3-4 ciagrettes per day +2 YEARS Length of Time of Smoking/Using Tobacco: 5 years Have You Smoked in the Last Year: No Review of Systems Constitutional: Negative Negative: Fever, Chills Eyes: Negative Negative: Photophobia, Blurred Vision ENT: Negative Cardiovascular: Negative Negative: Palpitations, Chest Pain Respiratory: Negative Negative: Shortness Of Breath, Cough Positive: Abdominal Pain, Nausea. Negative: Vomiting, Diarrhea Positive: flank pain. Negative: dysuria Skin: Negative Neurological: Other - memory loss Positive: Headache All Other Systems Reviewed And Are Negative: Yes Physical Exam Triage Information Reviewed: Yes Vital Signs On Initial Exam: Initial Vitals Temp Pulse Resp BP Pulse Ox 98.5 F 75 16 149/80 100 06/05/18 14:10 06/05/18 14:10 06/05/18 14:10 06/05/18 14:10 06/05/18 14:10 Vital Signs Reviewed: Yes Appearance: Positive: Well-Appearing - Pt. lying in bed in NAD. Family member present. Skin: Positive: Warm, Dry Head/Face: Positive: Normal Head/Face Inspection Eyes: Positive: Normal, EOMI, IVAN, Conjunctiva Clear ENT: Positive: Pharynx normal, TMs normal Neck: Positive: Supple, Nontender. Negative: Nuchal Rigidity Respiratory/Lung Sounds: Positive: Clear to Auscultation, Breath Sounds Present Cardiovascular: Positive: Normal, RRR Abdomen Description: Positive: Other: - Abd. is soft with mild tenderness to the LLQ. Left CVA tenderness Musculoskeletal: Positive: Normal, Strength/ROM Intact Neurological: Positive: Normal, Alert, Oriented to Person Place, Time, CN Intact II-III, Facial Symmetry, Speech Normal. Negative: Disoriented Psychiatric: Positive: Affect/Mood Appropriate - [place] Coma Scale Best Eye Response: 4 - Spontaneous Best Motor Response: 6 - Obeys Commands Best Verbal Response: 5 - Oriented Coma Scale Total: 15 Diagnostics - Vital Signs Vital Signs Temp Pulse Resp BP Pulse Ox 06/05/18 14:10 98.5 F 75 16 149/80 100 - Laboratory Lab Results: Lab Results 06/05/18 06/05/18 06/05/18 Range/Units 14:48 14:48 14:48 WBC 7.3 (3.5-10.8) 10^3/ul RBC 4.28 (4.00-5.40) 10^6/ul Hgb 13.3 (12.0-16.0) g/dl Hct 40 (35-47) % MCV 93 (80-97) fL MCH 31 (27-31) pg MCHC 34 (31-36) g/dl RDW 13 (10.5-15) % Plt Count 329 (150-450) 10^3/ul MPV 7.7 (7.4-10.4) fL Neut % (Auto) 68.2 % Lymph % (Auto) 21.6 % [place] % (Auto) 8.0 % Eos % (Auto) 1.4 % Baso % (Auto) 0.8 % Absolute Neuts (auto) 5.0 (1.5-7.7) 10^3/ul Absolute Lymphs (auto) 1.6 (1.0-4.8) 10^3/ul Absolute Monos (auto) 0.6 (0-0.8) 10^3/ul Absolute Eos (auto) 0.1 (0-0.6) 10^3/ul Absolute Basos (auto) 0.1 (0-0.2) 10^3/ul Absolute Nucleated RBC 0 10^3/ul Nucleated RBC % 0.1 Sodium 137 (135-145) mmol/L Potassium 4.1 (3.5-5.0) mmol/L Chloride 105 (101-111) mmol/L Carbon Dioxide 28 (22-32) mmol/L Anion Gap 4 (2-11) mmol/L BUN 8 (6-24) mg/dL Creatinine 0.78 (0.51-0.95) mg/dL Est GFR ( Amer) 103.6 (>60) Est GFR (Non-Af Amer) 85.6 (>60) BUN/Creatinine Ratio 10.3 (8-20) Glucose 76 (70-100) mg/dL Lactic Acid 0.8 (0.5-2.0) mmol/L Calcium 8.9 (8.6-10.3) mg/dL Total Bilirubin 0.40 (0.2-1.0) mg/dL AST 18 (13-39) U/L ALT 20 (7-52) U/L Alkaline Phosphatase 48 (34-104) U/L C-Reactive Protein < 1.00 (<8.01) mg/L Total Protein 6.7 (6.4-8.9) g/dL Albumin 4.2 (3.2-5.2) g/dL Globulin 2.5 (2-4) g/dL Albumin/Globulin Ratio 1.7 (1-3) Lipase 20 (11.0-82.0) U/L Beta HCG, Quant < 0.60 mIU/mL Urine Color Urine Appearance Urine pH (5-9) Ur Specific [place] (1.010-1.030) Urine Protein (Negative) Urine Ketones (Negative) Urine Blood (Negative) Urine Nitrate (Negative) Urine Bilirubin (Negative) Urine Urobilinogen (Negative) Ur Leukocyte Esterase (Negative) Urine WBC (Auto) (Absent) Urine RBC (Auto) (Absent) Ur Squamous Epith Cells (Absent) Urine Bacteria (Absent) Urine Glucose (Negative) Urine Ascorbic Acid (Negative) 06/05/18 Range/Units 15:00 WBC (3.5-10.8) 10^3/ul RBC (4.00-5.40) 10^6/ul Hgb (12.0-16.0) g/dl Hct (35-47) % MCV (80-97) fL MCH (27-31) pg MCHC (31-36) g/dl RDW (10.5-15) % Plt Count (150-450) 10^3/ul MPV (7.4-10.4) fL Neut % (Auto) % Lymph % (Auto) % [place] % (Auto) % Eos % (Auto) % Baso % (Auto) % Absolute Neuts (auto) (1.5-7.7) 10^3/ul Absolute Lymphs (auto) (1.0-4.8) 10^3/ul Absolute Monos (auto) (0-0.8) 10^3/ul Absolute Eos (auto) (0-0.6) 10^3/ul Absolute Basos (auto) (0-0.2) 10^3/ul Absolute Nucleated RBC 10^3/ul Nucleated RBC % Sodium (135-145) mmol/L Potassium (3.5-5.0) mmol/L Chloride (101-111) mmol/L Carbon Dioxide (22-32) mmol/L Anion Gap (2-11) mmol/L BUN (6-24) mg/dL Creatinine (0.51-0.95) mg/dL Est GFR ( Amer) (>60) Est GFR (Non-Af Amer) (>60) BUN/Creatinine Ratio (8-20) Glucose (70-100) mg/dL Lactic Acid (0.5-2.0) mmol/L Calcium (8.6-10.3) mg/dL Total Bilirubin (0.2-1.0) mg/dL AST (13-39) U/L ALT (7-52) U/L Alkaline Phosphatase (34-104) U/L C-Reactive Protein (<8.01) mg/L Total Protein (6.4-8.9) g/dL Albumin (3.2-5.2) g/dL Globulin (2-4) g/dL Albumin/Globulin Ratio (1-3) Lipase (11.0-82.0) U/L Beta HCG, Quant mIU/mL Urine Color Yellow Urine Appearance Cloudy Urine pH 6.0 (5-9) Ur Specific [place] 1.012 (1.010-1.030) Urine Protein Negative (Negative) Urine Ketones Negative (Negative) Urine Blood Negative (Negative) Urine Nitrate Negative (Negative) Urine Bilirubin Negative (Negative) Urine Urobilinogen Negative (Negative) Ur Leukocyte Esterase 2+ A (Negative) Urine WBC (Auto) Trace(0-5/hpf) (Absent) Urine RBC (Auto) 1+(3-5/hpf) A (Absent) Ur Squamous Epith Cells Present A (Absent) Urine Bacteria Absent (Absent) Urine Glucose Negative (Negative) Urine Ascorbic Acid * A (Negative) Result Diagrams: 06/05/18 14:48 06/05/18 14:48 Lab Statement: Any lab studies that have been ordered have been reviewed, and results considered in the medical decision making process. Complex Multi-Symp Course/Dx Course Of Treatment: Pt. presenting for the above complaints. Her main complaint is abd./flank pain. She is afebrile with stable VS. She has no neuro deficits on exam. Labs and urine obtained in triage. Blood work is unremarkable. U/A shows leukocytes and RBCs without bacteria. Pt. given IV fluids and toradol. CT abd.pelvis per radiology: IMPRESSION: #. Negative for urolithiasis or hydronephrosis. #. Normal appendix documented. #. No acute abdominal pelvic pathologic process evident. 1738: Pt. re-examined. Pt. resting comfortably. Results discussed. Pt. states her pain is still a "8." Pt. ask me why she is here. Pt.'s family member is concerned with her change in short term memory. Pt. c/o ongoing h/a. Will obtain head CT to r/o bleed, mass, ect. Compazine and benadryl ordered for h/a. Pt. allergic to steroids. Pt. will be signed out to Lenin Bernal PA-C for head ct results and disposition. - Diagnoses Provider Diagnoses: Flank pain, Headache Discharge - Sign-Out/Discharge Documenting (check all that apply): Sign-Out Patient Signing out patient TO: Lenin Bernal Patient Received Moderate/Deep Sedation with Procedure: No - Discharge Plan Condition: Good Disposition: HOME Patient Education Materials: Acute Headache (ED), Flank Pain (ED) Referrals: Andrez Manzo PA [Primary Care Provider] - Additional Instructions: Alternate ibuprofen 600 mg with Tylenol 650 mg every 3 hours for flank pain. Plenty of fluids to maintain hydration. Follow-up with your neurologist for further evaluation of headache. Return to the ED for any new or worsening symptoms. - Billing Disposition and Condition Condition: GOOD Disposition: Home
--- NOTE | 2018-06-05 19:05 | PN ---
Progress Note - Progress Note Date of Service: 06/05/18 Note: Patient signed out to me by Zacarias NAJERA pending results of CT brain. Patient presents with symptoms of confusion, BLACK and left flank pain. Vital signs within normal limits. Labs unremarkable. UA negative. CT abdomen and pelvis without contrast unremarkable. CT brain without contrast unremarkable. Patient states left flank pain has resolved. States headache is persistent despite migraine cocktail. Patient states she has a history of migraines which cannot be improved with any medication. Patient followed by Dr. Marks neurology for same. Patient given Fioricet as trial. Patient denies having tried Fioricet before. Patient discharged in stable condition with diagnosis of flank pain and headache.
[2018-06-05] MEDS ORDERED: Butalb/Acetamin/Caff TAB* 1 TAB PO ONE (19:10)
[2018-06-05 19:30] VITALS: BP 108/54
== END 2018-06-05 19:34 | disposition home or self-care (01) ==
LOC: ED 14:09
DX: R10.32 Left lower quadrant pain (principal); R51 Headache; R41.0 Disorientation, unspecified; I10 Essential (primary) hypertension; Q85.01 Neurofibromatosis, type 1; F41.9 Anxiety disorder, unspecified; F32.9 Major depressive disorder, single episode, unspecified; Z88.8 Allergy status to other drugs, medicaments and biological substances; Z91.018 Allergy to other foods; Z91.048 Other nonmedicinal substance allergy status; Z87.891 Personal history of nicotine dependence
CPT/HCPCS: 36415; 70450; 74176; 80053; 81003; 81015; 83605; 83690; 84702; 85025; 86140; 87086; 96361; 96374; 96375; 99283; A9270-GY; J0780; J1885

== ENCOUNTER 2018-07-06 12:55 | Inpatient (IN) | payer OTHER ==
--- NOTE | 2018-07-06 13:15 | ED ---
HPI Chest Pain - HPI Summary HPI Summary: Pt is a 32 y/o female who presents to the ED c/o CP. Around 12:30 today she began to have CP. The pain is constant and is located in her left anterior chest. Pain is rated a 9/10 in severity, and is made worse with coughing and deep breaths. She also c/o SOB, nausea, and fatigue. Pt denies any diaphoresis, dizziness, or lightheadedness, as per nurses note. She also notes that shes had a cold for the past few days, which includes a cough. Pt has had CP in the past, and prior EKGs have always been normal. She has never seen a waxer operator. Pt denies any recent travel or heavy lifting. Pt is a former smoker. PMHx neurofibromatosis and HTN, but denies any hx of blood clots. - History of Current Complaint Time Seen by Provider: 07/06/18 13:01 Hx Obtained From: Patient Onset/Duration: Started Hours Ago - 12:30 today, Still Present Timing: Constant Current Severity: Severe Pain Intensity: 9 Pain Scale Used: 0-10 Numeric Chest Pain Location: Left Anterior Chest Pain Radiates: No Aggravating Factor(s): Deep Breaths, Other: - coughing Associated Signs and Symptoms: Positive: Chest Pain, Shortness of Breath, Nausea , Cough. Negative: Lightheadedness, Diaphoresis Related History: Similar Episode/Dx as: - hx angina - Additional Pertinent History Primary Care Physician: [id number] - Allergy/Home Medications Allergies/Adverse Reactions: Allergies Allergy/AdvReac Type Severity Reaction Status Date / Time prednisone Allergy Severe Hallucinati Verified 06/05/18 14:15 ons Adhesive Tape [Plastic Tape] Allergy Intermediate Rash Verified 06/05/18 14:15 coconut Allergy Mild Rash Verified 06/05/18 14:15 Home Medications: Home Medications DULoxetine DR CAP* [Cymbalta CAP*] 30 mg PO BID 07/06/18 [History Confirmed 01/14] Gabapentin CAP(*) [Neurontin 300 CAP(*)] 900 mg PO BEDTIME 07/06/18 [History Confirmed 07/06/18] PMH/Surg Hx/FS Hx/Imm Hx Endocrine/Hematology History: Denies: Hx Blood Disorders - blood clots, Hx Diabetes, Hx Systemic Lupus Erythematosus, Hx Thyroid Disease, Hx Anemia Cardiovascular History: Reports: Hx Angina, Hx Hypertension - ON MEDICATION FOR Denies: Hx Congestive Heart Failure, Hx Pacemaker/ICD, Other Cardiovascular Problems/Disorders Respiratory History: Reports: Hx Asthma - neurofibromatosis;migraine Denies: Hx Chronic Obstructive Pulmonary Disease (COPD), Other Respiratory Problems/Disorders GI History: Denies: Hx Ulcer, Other GI Disorders History: Denies: Hx Dialysis, Hx Renal Disease, Other Problems/Disorders Musculoskeletal History: Reports: Other Musculoskeletal History - 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 ON 12/07/17 PER PATIENT Denies: Hx Rheumatoid Arthritis Sensory History: Reports: Hx Contacts or Glasses - GLASSES, Hx Legally Blind - Right eye Denies: Hx Cataracts, Hx Eye Injury, Hx Eye Prosthesis, Hx Glaucoma, Hx Macular Degeneration, Hx Vision Problem, Hx Deafness, Hx Hearing Aid, Hx Hearing Problem Opthamlomology History: Reports: Hx Contacts or Glasses - GLASSES, Hx Legally Blind - Right eye Denies: Hx Cataracts, Hx Eye Injury, Hx Eye Prosthesis, Hx Glaucoma, Hx Macular Degeneration, Hx Vision Problem Neurological History: Reports: Hx Headaches, Hx Migraine - CONSTANT, Hx Nerve Disease - NEUROFIBROMATOSIS- TYPE I, 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 Denies: Hx Dementia, Hx Developmental Delay, Hx Seizures, Hx Spinal Cord Injury, Hx Transient Ischemic Attacks (TIA) Psychiatric History: Reports: Hx Anxiety - ON MEDICATION FOR, Hx Depression - ON MEDICATION FOR Denies: Hx Panic Disorder - Cancer History Hx Chemotherapy: No - Surgical History Surgery Procedure, Year, and Place: 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 EXTRACTION OF NEUROMAS - ARMS, Rt INDEX FINGER, NOSE. WISDOM TEETH Hx Anesthesia Reactions: No - Immunization History Date of Tetanus Vaccine: Unknown Infectious Disease History: No Infectious Disease History: Denies: Hx Clostridium Difficile, Hx Hepatitis, Hx Human Immunodeficiency Virus (HIV), Hx of Known/Suspected MRSA, Hx Shingles, Hx Tuberculosis, Hx Known/ Suspected VRE, Hx Known/Suspected VRSA, Traveled Outside the [place] in Last 30 Days - Family History Known Family History: Positive: Cardiac Disease - [place], Diabetes, Respiratory Disease - asthma, Other - cancer, migraine, thyroid disease - Social History Alcohol Use: None Hx Substance Use: No Substance Use Type: Reports: None Hx Tobacco Use: Yes Smoking Status (MU): Former Smoker Type: Cigarettes Amount Used/How Often: 3-4 ciagrettes per day +2 YEARS Length of Time of Smoking/Using Tobacco: 5 years Have You Smoked in the Last Year: No Review of Systems Positive: Fatigue. Negative: Skin Diaphoresis Positive: Chest Pain Positive: Shortness Of Breath, Cough Positive: Nausea Neurological: Other - NEGATIVE: dizziness, lightheadedness All Other Systems Reviewed And Are Negative: Yes Physical Exam - Summary Physical Exam Summary: GENERAL: Patient is a well-developed and nourished F who is lying comfortable in the stretcher. Patient is not in any acute respiratory distress. HEAD AND FACE: Normocephalic EYES: PERRLA, EOMI x 2. EARS: Hearing grossly intact. MOUTH: Oropharynx within normal limits. NECK: Supple, trachea is midline, no adenopathy, no JVD, no carotid bruit. CHEST: Symmetric, no tenderness at palpation LUNGS: Clear to auscultation bilaterally. No wheezing or crackles. CVS: Regular rate and rhythm, S1 and S2 present, no murmurs or gallops appreciated. ABDOMEN: Soft. Bowel sounds are normal. No abdominal abnormal pulsations. Mild tenderness to palpation of left chest. EXTREMITIES: Full ROM in all major joints, no edema, no cyanosis or clubbing. NEURO: Alert and oriented x 3. No acute neurological deficits. Speech is normal and follows commands. SKIN: Dry and warm Triage Information Reviewed: Yes Vital Signs On Initial Exam: Initial Vitals Temp Pulse Resp BP Pulse Ox 98.1 F 69 16 135/80 100 07/06/18 13:00 07/06/18 13:00 07/06/18 13:00 07/06/18 13:00 07/06/18 13:00 Vital Signs Reviewed: Yes Diagnostics - Vital Signs Vital Signs Temp Pulse Resp BP Pulse Ox 07/06/18 13:09 99 07/06/18 13:08 59 99 07/06/18 13:04 59 135/80 100 07/06/18 13:00 98.1 F 69 16 135/80 100 - Laboratory Result Diagrams: 07/07/18 06:04 07/07/18 06:04 Lab Statement: Any lab studies that have been ordered have been reviewed, and results considered in the medical decision making process. - Radiology CXR Radiology Interpretation Completed By: Radiologist Summary of Radiographic Findings: NO ACTIVE CARDIOPULMONARY DISEASE. ED physician reviewed radiology report. - CT Chest/Abdomen/Pelvis CTA CT Interpretation Completed By: Radiologist Summary of CT Findings: NO AORTIC DISSECTION. NO ACUTE CT PATHOLOGY OF THE VISUALIZED CHEST, ABDOMEN, OR PELVIS. ED physician reviewed radiology report. Brain CT CT Interpretation Completed By: Radiologist Summary of CT Findings: NO ACUTE INTRACRANIAL PATHOLOGY. ED physician reviewed radiology report. - EKG 12:04 Cardiac Rate: NL - 60 bpm EKG Rhythm: Sinus Rhythm EKG Comparison: Other - No T wave inversions as compared to 01/14/18 Summary of EKG Findings: No ischemic changes, nl intervals Re-Evaluation - Re-Evaluation First Eval Re-Evaluation Time: 14:42 Change: Unchanged Comment: Pt does not feel any better after pain medications. Second Eval Re-Evaluation Time: 15:42 Change: Unchanged Comment: Pt still does not feel any better after NTG. Third Eval Re-Evaluation Time: 15:50 Change: Worse Comment: Pt now has a headache and confusion. Spoke with sister who confirmed that pt has a hx of complex migraines, and she often becomes confused with the migraines. A neurological exam was performed: Cranial nerves II-XII grossly intact, no dysmetria finger to nose, nml heel to banuelos. Chest Pain Course/Dx - Course Course Of Treatment: Pt is a 32 y/o female who presents to the ED c/o CP. A physical exam revealed mild tenderness to palpation of left chest. A CXR was negative. An EKG was normal with a rate of 60 bpm. A chest CTA and brain CT were both negative. Case discussed with hospitalist. Dr. Reyes accepts pt for admission, with a final dx of chest pain. I discussed results with patient. The patient agrees with this plan. - Diagnoses Provider Diagnoses: Chest pain - Provider Notifications Discussed Care Of Patient With: Sanjuanita Reyes Time Discussed With Above Provider: 15:53 Instructed by Provider To: Admit As Inpatient - Hospitalist accepts for admission. She requests a chest CTA to ensure the aorta is normal. Discharge - Sign-Out/Discharge Documenting (check all that apply): Patient Departure - Admit Patient Received Moderate/Deep Sedation with Procedure: No - Discharge Plan Condition: Stable Disposition: ADMITTED TO [facility] - Billing Disposition and Condition Condition: STABLE Disposition: Admitted to [facility] - Attestation Statements Document Initiated by Scribe: Yes Documenting Scribe: Nadya Schmidt Provider For Whom Scribe is Documenting (Include Credential): Tejinder Knight MD Scribe Attestation: INadya, scribed for Tejinder Knight MD on 07/07/18 at 1555. Scribe Documentation Reviewed: Yes Provider Attestation: The documentation as recorded by the scribeNadya accurately reflects the service I personally performed and the decisions made by me, Tejinder Knight MD Status of Scribe Document: Viewed
[2018-07-06 13:35] LABS: ABS Basophils 0.1 10^3/ul (0-0.2); ABS Eosinophils 0.1 10^3/ul (0-0.6); ABS Monocytes 0.7 10^3/ul (0-0.8); ABS Neutrophils 6.9 10^3/ul (1.5-7.7); ABS Nucleated RBC 0 10^3/ul; Eosinophil % 0.9 %; Hematocrit 40 % (33-41); Hemoglobin 13.6 g/dL (12.0-16.0); Lymphocyte % 20.9 %; Mean Corpuscular HGB Conc 35 g/dL (31-36); Mean Corpuscular Hemoglobin 31 pg (27-31); Mean Corpuscular Volume 91 fL (80-97); Nucleated Red Blood Cells % 0; Platelet Count 301 10^3/uL (150-450); Red Blood Count 4.36 10^6 /uL (3.70-4.87); Red Cell Distribution Width 13 % (10.5-15); White Blood Count 9.7 10^3/uL (3.5-10.8)
[2018-07-06 13:41] LABS: ALT 13 U/L (7-52); AST 14 U/L (13-39); Albumin 4.4 g/dL (3.2-5.2); Albumin/Globulin Ratio 1.6 (1-3); Alkaline Phosphatase 51 U/L (34-104); Anion Gap 4 mmol/L (2-11); BUN/Creatinine Ratio 13.6 (8-20); Blood Urea Nitrogen 11 mg/dL (6-24); CO2 Carbon Dioxide 27 mmol/L (22-32); Calcium 9.6 mg/dL (8.6-10.3); Chloride 105 mmol/L (101-111); EGFR African American 99.1 (>60); EGFR Non-African American 81.9 (>60); Globulin 2.7 g/dL (2-4); Glucose 90 mg/dL (70-100); Potassium 4.1 mmol/L (3.5-5.0); Sodium 136 mmol/L (135-145); Total Protein 7.1 g/dL (6.4-8.9)
[2018-07-06 13:42] LABS: Activated Partial Thrombo Time 30.4 seconds (26.0-36.3)
[2018-07-06 13:45] LABS: CKMB ng/mL 1.4 ng/mL (0.6-6.3)
[2018-07-06] MEDS ORDERED: oxyCODONE/Acetamin 5/325 MG* TAB PO ONE (13:52)
[2018-07-06 14:44] LABS: Influenza A Molecular NEGATIVE (Negative); Influenza B Molecular NEGATIVE (Negative)
[2018-07-06] MEDS ORDERED: Nitroglycerin TAB 0.4 MG* 0.4 MG TAB ONE (14:45)
[2018-07-06] MEDS ORDERED: Nitroglycerin TAB 0.4 MG* 0.4 MG TAB SL ONE (14:46)
[2018-07-06] MEDS ORDERED: LORazepam TAB(*) 1 MG PO ONE (14:57)
[2018-07-06 15:12] LABS: Urine Appearance Clear; Urine Bilirubin Negative (Negative); Urine Blood Negative (Negative); Urine Color Yellow; Urine Glucose Negative (Negative); Urine Ketones Negative (Negative); Urine Nitrite Negative (Negative); Urine Protein Negative (Negative); Urine Specific Gravity 1.009 (1.010-1.030); Urine Urobilinogen Negative (Negative)
[2018-07-06 15:13] LABS: C Reactive Protein 2.86 mg/L (<8.01); HCG Pregnancy < 0.60 mIU/mL
[2018-07-06] MEDS ORDERED: NS 0.9% 1000 ML** 1,000 ML IV ONE (15:55)
[2018-07-06] MEDS ORDERED: Iohexol 350* (CONTRAST) 500 ML MDV IV ONE (16:26)
[2018-07-06] MEDS ORDERED: Magnesium Hydroxide LIQ* 30 ML UDC PO PRN (18:44)
[2018-07-06] MEDS ORDERED: Al Hydrox/Mg Hydrox/Simet LIQ* 30 ML UDC PO PRN (18:44)
[2018-07-06] MEDS ORDERED: Ketorolac INJ* 30 MG/ML 1 ML VIAL IV PUSH ONE (18:51)
[2018-07-06] MEDS ORDERED: Metoclopramide IV* 5 MG/ML 2 ML VIAL IV ONE (18:51)
[2018-07-06] MEDS: Gabapentin CAP(*) 300 MG PO SCH (21:35)
[2018-07-06] MEDS: traZODone TAB* 50 MG TAB PO SCH (21:36)
[2018-07-06] MEDS: DULoxetine DR CAP* 30 MG CAP.DR PO SCH (21:36)
--- NOTE | 2018-07-07 01:14 | HP ---
CC: Dr. Andrez Manzo * HISTORY AND PHYSICAL: DATE OF ADMISSION: 07/06/18 PROVIDER: DANIA Foote PRIMARY CARE PHYSICIAN: Dr. Andrez Manzo. ATTENDING PHYSICIAN: Dr. Octavio Travis * (dictated by DANIA Foote) . CHIEF COMPLAINT: Chest pain, left-sided unilateral paresthesia and pain. HISTORY OF PRESENT ILLNESS: Aishwarya Vega is a 32-year-old white female with past medical history significant for chronic headaches, neurofibromatosis type 1 , and history of migraine with hemiplegia, anxiety, and depression who presents to the emergency department today complaining of left-sided chest pain with left -sided upper extremity and lower extremity pain and paresthesias. The patient reports that she was driving in a car with her sister when she suddenly began feeling numbness and tingling in her left fingers which then spread up into her upper extremity and then to her left side of her chest. This then became pain in the left arm and chest. She then pulled over and switched seats with her sister and transferred to the passenger seat. At this time, she was feeling a little bit dizzy and "seeing lines" in her vision field when getting into passenger seat. She then started to have left-sided leg pain. They decided to drive to the hospital, and during this drive, her left arm and left leg pain transitioned into numbness. While she was feeling this left-sided chest pain, she was also experiencing shortness of breath. When she arrived to the emergency department, she began having a headache that was generalized through just the top of her head near the crown and she started to feeling nauseous. At the time of evaluation, her chest pain is still present, it was previously 8/ 10 pain and now it is 7/10. She indicates the left aspect of the chest near the axilla as the location of her chest pain. Her nausea is now resolved, but she still feels some lingering numbness to her left upper extremity and left leg. Additionally, she notes that she has had some nasal congestion since yesterday. Denies sore throat, postnasal drip, fever, or chills. She does report that she has seasonal allergies. Her chest pain did not radiate into her neck or jaw , is not associated with back pain. She denies chest palpitations, vomiting, abdominal pain, diarrhea, diaphoresis. The patient does endorse that she did have similar symptoms with a migraine in the past. After the patient explained this entire story, which was very clear and very much a detailed history including personal medical history and her family history, she stated that she additionally felt confused with this headache. When questioned further, she stated she was not sure where she was and then stated that she did not understand how she got to the hospital even though she had already given quite a detailed explanation. ED COURSE: When patient arrived to emergency department, she was still feeling symptomatic of her chest pain and apparently did not report her left-sided numbness or pain to the ED providers. Her vital signs at arrival were temperature 98.1, pulse 69, respiratory rate 16, O2 100% on room air, blood pressure 135/80. In the emergency department, she received Percocet and Ativan. Additionally, she received 0.4 mg of sublingual nitroglycerin which did not relieve her chest pain and she reports that it made her headaches worse. Pertinent labs include troponin of 0, then the hospitalists were asked to evaluate the patient for admission. PAST MEDICAL HISTORY: 1. Neurofibromatosis type 1. 2. Cervical spondylosis with myelopathy. 3. Chronic headache. 4. History of migraine with hemiplegia. 5. Insomnia. 6. Anxiety. 7. Depression. PAST SURGICAL HISTORY: 1. Cervical decompression and fusion of C4-C5, C5-C6. 2. Multiple neuroma removal surgeries. MEDICATIONS: 1. Gabapentin 600 mg p.o. q.a.m. 2. Gabapentin 900 mg p.o. at bedtime. 3. Cymbalta 30 mg p.o. b.i.d. 4. Verapamil 180 mg p.o. q.a.m. 5. Multivitamin 3 tabs daily. 6. Trazodone 50 mg p.o. at bedtime. ALLERGIES: PREDNISONE (hallucinations), COCONUT (rash), ADHESIVE TAPE (rash). FAMILY HISTORY: Father had a stroke, she is unsure of what age. He is currently alive in his mid 50s. He also has history of polycystic kidney disease. Her mother is alive in her mid 50s and reportedly healthy. No history of NM in her family. SOCIAL HISTORY: Patient does not use tobacco, drugs, or alcohol. She is not and has 2 children. To make a living, she is on disability. The patient reports that her medical surrogate decision makers would be her parents. If needed, her father name is Mike, phone number [phone]; her mother's name is Shena, phone number is [phone]. REVIEW OF SYSTEMS: An 11-point review of systems was completed and all pertinent positives and negatives are in the HPI and all other systems are negative. PHYSICAL EXAMINATION GENERAL: Young white female, lying in hospital bed, appearing comfortable, appearing in no acute distress. HEENT: Head: Normocephalic, atraumatic. Eyes: EOMI. PERRL. Sclerae anicteric. Visual rodrigues full to confrontation. ENT: Mucous membranes moist. NECK: Supple without JVP. LUNGS: Lungs are clear to auscultation. Chest expansions are equal with symmetrical respiration. CARDIO: Regular rate and rhythm without murmurs, rubs, or gallops. No chest pain reproducible to palpation throughout anterior chest. ABDOMEN: Normoactive bowel sounds x4. Abdomen is soft, nontender, nondistended. No masses or hepatosplenomegaly. MUSCULOSKELETAL: The patient reports reproducing of left-sided chest pain in the area of left axilla with resistance to horizontal adduction of left shoulder. NEURO: The patient is alert and oriented x3. Cranial nerves II through XII are grossly intact. The patient reports decreased sensation to the left upper extremity. Otherwise, sensation is equal throughout. Strength is 5/5 in all extremities. SKIN: Multiple neuromas present. Warm, dry, and intact. DIAGNOSTIC STUDIES/LAB DATA: White blood cell count 9.7, hemoglobin 13.6, hematocrit 40, platelet count 301. Sodium 136, potassium 4.1, chloride 105, CO2 of 27, BUN 11, creatinine 0.81, glucose 90. Lactic acid 0.6. Troponin 0.00 x2. D-dimer less than 200. EKG on 07/06/18: Normal sinus rhythm, rate 60 beats per minute, normal axis. No ST depressions or elevations. No T-wave inversions. In comparison to study on 01/14/18, EKG is overall unchanged. Chest x-ray on 07/06/18, impression: "No active cardiopulmonary disease." Chest, abdomen, pelvis CTA on 07/06/18, impression: "No aortic dissection. No acute pathology visualized of chest, abdomen, or pelvis." Brain CT on 07/06/18, impression: "No acute intracranial pathology." ASSESSMENT AND PLAN: Aishwarya Vega is a 32-year-old white female with past medical history significant for neurofibromatosis type 1, chronic headaches, and history of migraine with hemiplegia, who presents to the emergency department with left-sided chest pain and left upper extremity, left lower extremity numbness and pain. The patient will be admitted to observation for: 1. Unilateral paresthesias. A stroke has been ruled out. Aortic dissection has been ruled out which is necessary given patient's history of neurofibromatosis. A transient ischemic attack is in the differential, though the most likely cause is a migraine, especially as the patient has had hemiplegia with migraines in the past. The patient does have risk factors given her father's history of a stroke at a young age, but otherwise does not have personal risk factors for stroke. Echo with bubble study and ultrasound of the carotids have been ordered. LDL and hemoglobin A1c have been ordered. Additionally, TSH and B12 have been ordered. The patient will receive neuro checks every 4 hours. She is admitted to the medical floor with telemetry and a repeat EKG has been ordered. An MRI with contrast will be ordered to rule out any intracranial pathology that is necessary given her history of neurofibromatosis. 2. Chest pain. The patient has left-sided chest pain that is reproducible with action at the shoulder, it is likely related to musculoskeletal pain at the teres major, teres minor, or pectoralis muscle. The patient does not have personal cardiac risk factors. Her EKG is normal and her troponins have been negative x3, and we will continue to trend a third her troponin. Given the likely musculoskeletal nature of this chest pain and the low likelihood of cardiac etiology, stress test will not be ordered at this time though can be considered depending on results of the further workup. The patient will be given Toradol for this chest pain and we will monitor for improvement. It is of note that she received nitroglycerin in the emergency department and it did not relieve her chest pain. 3. Headache. The patient has headache today and is complaining of confusion associated with this headache, although she was not confused during her entire history taking. There is a possibility of malingering given this complaint of confusion and I have low suspicion for actual confusion at this time. The patient was alert and oriented x3 during history collection. She reports her headache got worse after taking nitroglycerin. Percocet in the emergency department did not help. I am giving IV Reglan and Toradol IV, and if this does not assist, additional therapies can be considered in the morning. Continue the patient's verapamil and gabapentin. 4. History of anxiety and depression. Continue home Cymbalta. 5. FEN. The patient can have regular unrestricted diet. Electrolytes are within normal limits. No additional fluids needed, although she already received 1 L of normal saline in the ED. 6. Code status. The patient is full code. 7. DVT prophylaxis. The patient has a DVT risk score of 1 and ordered ambulation t.i.d. and SCDs. TIME SPENT: Approximately 50 minutes was spent on this admission, approximately half of this time spent at bedside. Case has been reviewed with my attending Dr. Octavio Travis and he agrees with this assessment and plan of care. DANIA FOOTE [id number]/[facility] #: [id number] MARISOL
[2018-07-07] MEDS: Acetaminophen TAB* 325 MG PO PRN ×3 (04:16→16:44)
[2018-07-07 06:19] LABS: ABS Basophils 0 10^3/ul (0-0.2); ABS Eosinophils 0.1 10^3/ul (0-0.6); ABS Lymphocytes 1.4 10^3/ul (1.0-4.8); ABS Monocytes 0.5 10^3/ul (0-0.8); ABS Neutrophils 4.5 10^3/ul (1.5-7.7); ABS Nucleated RBC 0 10^3/ul; Eosinophil % 1.6 %; Hematocrit 39 % (33-41); Hemoglobin 13.2 g/dL (12.0-16.0); Lymphocyte % 21.8 %; Mean Corpuscular HGB Conc 34 g/dL (31-36); Mean Corpuscular Hemoglobin 31 pg (27-31); Mean Corpuscular Volume 90 fL (80-97); Mean Platelet Volume 7.8 fL (7.4-10.4); Nucleated Red Blood Cells % 0.1; Platelet Count 257 10^3/uL (150-450); Red Blood Count 4.32 10^6 /uL (3.70-4.87); Red Cell Distribution Width 13 % (10.5-15); White Blood Count 6.6 10^3/uL (3.5-10.8)
[2018-07-07 06:35] LABS: BUN/Creatinine Ratio 12.8 (8-20); Calcium 9.1 mg/dL (8.6-10.3); EGFR African American 103.6 (>60); EGFR Non-African American 85.6 (>60); HDL Cholesterol 41.7 mg/dL; Potassium 3.8 mmol/L (3.5-5.0)
[2018-07-07 06:57] LABS: TSH (Thyroid Stimulating Horm) 4.94 mcIU/mL (0.34-5.60)
[2018-07-07] MEDS: DULoxetine DR CAP* 30 MG CAP.DR PO SCH ×2 (09:55→21:21)
[2018-07-07] MEDS: Gabapentin CAP(*) 300 MG PO SCH ×2 (09:56→21:21)
[2018-07-07] MEDS: Verapamil SR CAP* 180 MG PO SCH (09:56)
[2018-07-07] MEDS ORDERED: Ibuprofen TAB* 600 MG PO ONE (10:00)
[2018-07-07] MEDS ORDERED: Gadoteridol* (CONTRAST) 279.3 MG/ML 10 ML IV ONE (10:01)
[2018-07-07] MEDS ORDERED: Butalb/Acetamin/Caff TAB* 1 TAB PO PRN (12:41)
--- NOTE | 2018-07-07 13:05 | ECHO ---
Patient: SILVANO OLIVARES [facility] Rec#: [id number] : 1985 Date: 07/07/2018 Age: 32y Height: 183 cm / 72.0 in Weight: 97 kg / 213.8 lbs Sex: F BSA: 2.19 Room#: [facility] Admit Date#: 07/06/2018 Type: Inpatient Referring: LITO Reading: Oscar Larson MD Rim Turning Machine Operator: Nga Davidson RDCS CC: Andrez Manzo Transthoracic Echocardiogram Indication: TIA BP: 119/63 HR: 63 Rhythm: NSR Findings History: Neurofibromatosis type 1. Technical Comments: The study quality is fair. Completed at 0845. Left Ventricle: The left ventricular chamber size is normal.accounting for BSA. There is no left ventricular hypertrophy. Global left ventricular wall motion and contractility are within normal limits. There is normal left ventricular systolic function. The estimated ejection fraction is 55-60%. Normal left ventricular diastolic filling is observed. Left Atrium: The left atrium is slightly dilated. Right Ventricle: Moderator Band present. The right ventricular cavity size is normal. The right ventricular global systolic function is normal. Right Atrium: The right atrial cavity size is normal. A prominent eustachian valve is noted in the right atrium. Interatrial septum appears intact without evidence of shunting. The bubble study is negative. A patent foramen ovale is not demonstrated with color Doppler and agitated contrast. Aortic Valve: The aortic valve is trileaflet. There is no evidence of aortic valve thickening. There is no evidence of aortic regurgitation. There is no evidence of aortic stenosis. Mitral Valve: The mitral valve leaflets are mildly thickened. There is trace to mild mitral regurgitation. There is no evidence of mitral stenosis. Tricuspid Valve: The tricuspid valve leaflets are normal. There is mild tricuspid regurgitation. The right ventricular systolic pressure is estimated at 26 mmHg. No pulmonary hypertension is noted. There is no tricuspid stenosis. Pulmonic Valve: The pulmonic valve appears normal. There is a trace pulmonic regurgitation. There is no pulmonic stenosis. Pericardium: There is no significant pericardial effusion. A pericardial fat pad is visualized. Aorta: There is no dilatation of the ascending aorta. There is no dilatation of the aortic arch. The aortic root is normal in size. Pulmonary Artery: The main pulmonary artery appears normal. Venous: The inferior vena cava appears normal in size. There is a greater than 50% respiratory change in the inferior vena cava dimension. Contrast: Normal saline was used as contrast for the bubble study. Images 86 and 87. Intravenous contrast was used to help determine presence of intracardiac shunting. Conclusions The left ventricular chamber size is normal.accounting for BSA. Global left ventricular wall motion and contractility are within normal limits. The estimated ejection fraction is 55-60%. The left atrium is slightly dilated. Interatrial septum appears intact without evidence of shunting. The bubble study is negative. There is trace to mild mitral regurgitation. There is mild tricuspid regurgitation. Similar to 2014 except that the MR was mild to moderate then and seems mild now. Measurements Name Value Normal Range RVIDd (AP) 2D 2.8 cm (0.9 - 2.6) RVDdMajor (2D) 3.9 cm (2.2 - 4.4) RAd ISD 4CH 4.6 cm (3.4 - 4.9) RA (A4C)W 4.3 cm (2.9 - 4.6) IVSd (2D) 0.9 cm (0.6 - 1) LVPWd (2D) 0.9 cm (0.6 - 1) LVIDd (2D) 5.5 cm (3.6 - 5.4) LVIDs (2D) 4.7 cm - LV FS (2D) 15 % (25 - 45) Aortic Annulus 2.1 cm (1.4 - 2.6) Ao root diameter (2D) 3.1 cm (2.1 - 3.5) Ascending Ao 2.6 cm (2.1 - 3.4) Aortic arch 2.6 cm (1.8 - 3.4) LA dimension (AP) 2D 4.2 cm (2.3 - 3.8) LAd ISD 4CH 5.1 cm (2.9 - 5.3) LA ISD 4CH W 4.6 cm (2.5 - 4.5) Name Value Normal Range LA ESV BP (A/L) index 35 ml/m2 - Name Value Normal Range MV E-wave Vmax 0.9 m/sec - MV deceleration time 215 msec - MV A-wave Vmax 0.5 m/sec - MV E:A ratio 1.8 ratio - LV septal e' Vmax 0.1 m/sec - LV lateral e' Vmax 0.11 m/sec - LV E:e' septal ratio 9 ratio - LV E:e' lateral ratio 8.2 ratio - Name Value Normal Range AV Vmax 1.5 m/sec - AV VTI 28 cm - AV peak gradient 9 mmHg - AV mean gradient 4 mmHg - LVOT Vmax 1 m/sec - LVOT VTI 21 cm - LVOT peak gradient 4 mmHg - LVOT mean gradient 3 mmHg - OSWALDO Vmax 1.1 m/sec - Name Value Normal Range TR Vmax 2.4 m/sec - TR peak gradient 23 mmHg - RAP 3 mmHg - RVSP 26 mmHg - IVC diameter 2 cm - Name Value Normal Range PV Vmax 0.9 m/sec - PV peak gradient 3 mmHg -
[2018-07-07] MEDS: Ibuprofen TAB* 600 MG PO PRN (16:45)
--- NOTE | 2018-07-07 17:38 | PN ---
Subjective Date of Service: 07/07/18 Interval History: Patient seen several time throughout the day today, complaining of severe headache. Her other neurological symptoms resolved but today is complaining 10/ 10 headache. Discussed with her neurologist who saw her today and recommended treatment for migraine. I started her on fioricet and she did express some relieve to the nurse earlier. I did go back to see her and reassess if she is comfortable enough to go home with Rx of fiorecet and I saw the patient exhaling smoke with a very distinguished smell to it. I inquired with her if she was smoking Vape or any other smokes she denied it in the beginning and pointed me to her albuterol inhaler. I did proceed with inquiring about other inhaler and she admitted for Vape. charge nurse notified and the device was taken away from the patient. Patient reported that she is still having pain 10/ 10 and did not feel comfortable being released. Past Medical History: Unchanged from Admission Objective Active Medications: Acetaminophen (Tylenol Tab*) 650 mg PO Q4H PRN PRN Reason: FEVER/PAIN Last Admin: 07/07/18 16:44 Dose: 650 mg Acetaminophen/Butalbital/Caffeine (Fioricet Tab*) 1 tab PO Q4H PRN PRN Reason: HEADACHE Last Admin: 07/07/18 14:16 Dose: 1 tab Al Hydrox/Mg Hydrox/Simethicone (Maalox Plus*) 30 ml PO Q6H PRN PRN Reason: INDIGESTION Duloxetine HCl (Cymbalta Cap*) 30 mg PO BID [facility] Last Admin: 07/07/18 09:55 Dose: 30 mg Gabapentin (Neurontin Cap(*)) 600 mg PO QAM OSKAR Last Admin: 07/07/18 09:56 Dose: 600 mg Gabapentin (Neurontin Cap(*)) 900 mg PO BEDTIME OSKAR Last Admin: 07/06/18 21:35 Dose: 900 mg Ibuprofen (Motrin Tab*) 600 mg PO Q6H PRN PRN Reason: PAIN Last Admin: 07/07/18 16:45 Dose: 600 mg Magnesium Hydroxide (Milk Of Magnesia Liq*) 30 ml PO Q4H PRN PRN Reason: CONSTIPATION Trazodone HCl (Desyrel Tab*) 50 mg PO BEDTIME [facility] Last Admin: 07/06/18 21:36 Dose: 50 mg Verapamil HCl (Calan Sr Cap*) 180 mg PO QAM [facility] Last Admin: 07/07/18 09:56 Dose: 180 mg Vital Signs - 8 hr 07/07/18 07/07/18 07/07/18 09:56 11:56 14:16 Pulse Rate Respiratory 16 18 16 Rate Blood Pressure (mmHg) 07/07/18 07/07/18 14:53 16:43 Pulse Rate 74 Respiratory 16 18 Rate Blood Pressure 122/62 (mmHg) Oxygen Devices in Use Now: None Appearance: awake, alert. confortable. no distress. Was smoking Vape in her room Eyes: No Scleral Icterus, PERRLA Ears/Nose/Mouth/Throat: NL Teeth, Lips, Gums Neck: NL Appearance and Movements; NL JVP, Trachea Midline Respiratory: Symmetrical Chest Expansion and Respiratory Effort, Clear to Auscultation Cardiovascular: NL Sounds; No Murmurs; No JVD, No Edema Abdominal: NL Sounds; No Tenderness; No Distention Extremities: No Edema Neurological: Alert and Oriented x 3, NL Muscle Strength and Tone Result Diagrams: 07/07/18 06:04 07/07/18 06:04 Assess/Plan/Problems-Billing Assessment: 32 year old female admitted for several psychosmatic symptoms, chest pain, numbness arm , leg , and face resolved this morning and now with severe 01/05 headache - Patient Problems (1) TIA (transient ischemic attack) Current Visit: Yes Status: Acute Code(s): G45.9 - TRANSIENT CEREBRAL ISCHEMIC ATTACK, UNSPECIFIED SNOMED Code(s): 835306884 Comment: - Resovled this morning - MRI brain evidence of neurofibromatosis no changes when compared to previous MRI - Carotid US bilateral no acute disease - Echo no acute pathologoy. EF 55% (2) Chronic daily headache Current Visit: No Status: Acute Priority: High Code(s): R51 - HEADACHE SNOMED Code(s): 608127749331 Comment: - Started today 01/05 - Probably migraine versus secondary gain. Discussed with neurology and thinks it is migraine - Started Fiorecet and I will place her on tyelanol and ibuprofen (3) Neurofibromatosis, type 1 Current Visit: No Status: Chronic Priority: Medium Comment: - Follows with Dr. Marks - MRI of head reviewed no changes when compared to her 2018 MRI. Evidence of neurofibramotosis changes (4) S/P cervical discectomy Current Visit: No Status: Acute Priority: High Code(s): Z98.890 - OTHER SPECIFIED POSTPROCEDURAL STATES SNOMED Code(s): 259562386 (5) DVT prophylaxis Current Visit: No Status: Acute Priority: High Code(s): EXJ4064 - SNOMED Code(s): 313526996 Comment: - SCDs
[2018-07-07] MEDS: oxyCODONE TAB* 5 MG TAB PO PRN (20:07)
[2018-07-07] MEDS: traZODone TAB* 50 MG TAB PO SCH (21:21)
--- NOTE | 2018-07-07 21:56 | CONS ---
CONSULTATION REPORT: DATE OF CONSULT: 07/07/18 PATIENT OF: Dr. Travis, Dr. Marks, Dr. Manzo. HISTORY OF PRESENT ILLNESS: This is a 32-year-old right-handed woman who has a history of migraines. The admission note says migraines with hemiplegia, but she notes to me on my history that there is never any weakness or focal symptoms. However in her last note, she has had numbness and tingling in her left arm and leg with these headaches and this was in April 2018. She had knife-like pain in her occipital area and we were treating with gabapentin at that point. She also notes to me that yesterday she was driving and developed numbness and tingling in her left leg and chest as well as to some extent in her face although she got mildly confused, but this is followed by a squeezing and throbbing global headache. She also had chest pain with this and shortness of breath and she came into the emergency room. She continued to have throughout the day some severe top of the head pain. She has some seasonal allergies. She has neurofibromatosis type 1, anxiety and depression. She has cervical spondylosis with history of myelopathy, status post cervical decompression at C4-5 and C5-6, insomnia, anxiety, depression. MEDICATIONS AT HOME: Include: 1. Gabapentin 600 mg in the morning and 900 at bedtime. 2. Cymbalta 30 b.i.d. 3. Verapamil 180 q.a.m. 4. Trazodone 50 mg at bedtime. She has had multiple neuroma removal surgeries. ALLERGIES: She is allergic to PREDNISONE, COCONUT, and ADHESIVE TAPE. FAMILY HISTORY: Father had a stroke and had polycystic kidney disease. SOCIAL HISTORY: She does not use alcohol, drugs or tobacco. She has 2 children. REVIEW OF SYSTEMS: Negative in all 14 spheres other than in HPI. PHYSICAL EXAM: Blood pressure 122/62, respirations 18, pulse 84, temperature 98.9. She is alert and oriented with normal speech and comprehension. She has stigmata of neurofibromatosis in terms of skin lesions without any new changes. Cranial nerves II through XII are intact. Fundi were benign. Motor exam revealed normal tone, strength, coordination. Sensation is intact to light touch. Chest: Clear. Cardiovascular: Regular rate and rhythm. Abdomen is soft with positive bowel sounds. DIAGNOSTIC STUDIES/LAB DATA: I reviewed her MRI scan, which showed no acute findings and it did show unchanged stigmata of neurofibromatosis. She had a carotid Doppler, which showed a thyroid nodule, but no hemodynamic changes. She has an echo that showed a slightly dilated left atrium, negative bubble study. IMPRESSION: Discussed with Dr. Travis that this sounds like she is having a migrainous headache and that this is unlikely to be a stroke. She has had similar headaches with left-sided numbness and tingling in the past. She has currently is the pain; therefore, I would treat her with pain meds to see if we can get her better and if not, I would consider adjusting her medicines for treatment of her headache syndrome. Having her on a baby aspirin sometimes can help migraines, especially if they have symptoms of focal neurological deficits. I defer to the hospitalist in terms of treatment for her chest pain. Thank you for sharing her case. [id number]/[facility] #: [id number] MARISOL
[2018-07-07] MEDS ORDERED: Metoclopramide IV* 5 MG/ML 2 ML VIAL IV SLOW PU PRN (22:37)
[2018-07-07] MEDS ORDERED: diPHENhydraMINE IV* 25 MG in NS 0.9% 50 ML* 50 ML IVPB ONE (22:38)
[2018-07-07] MEDS ORDERED: diPHENhydraMINE IV* 50 MG/ML 1 ml VIAL (BENADRYL) IV PRN (23:29)
[2018-07-08] MEDS: Verapamil SR CAP* 180 MG PO SCH (08:05)
[2018-07-08] MEDS: DULoxetine DR CAP* 30 MG CAP.DR PO SCH ×2 (08:05→20:14)
[2018-07-08] MEDS: Gabapentin CAP(*) 300 MG PO SCH ×2 (08:06→20:13)
[2018-07-08] MEDS: oxyCODONE TAB* 5 MG TAB PO PRN ×2 (08:06→16:37)
[2018-07-08] MEDS ORDERED: Gadoteridol* (CONTRAST) 279.3 MG/ML 10 ML IV ONE (11:05)
--- NOTE | 2018-07-08 14:50 | CONS ---
CARDIOLOGY CONSULTATION NOTE: DATE OF CONSULT: 07/08/18 CONSULTING PHYSICIAN: Dr. Travis. REASON FOR EVALUATION: Chest discomfort, shortness of breath. HISTORY OF PRESENT ILLNESS: This is a very pleasant 32-year-old woman with a history of neurofibromatosis type 1 and history of headaches, anxiety and depression, who was seen in the emergency room on 07/06/18 because of left- sided chest pain and paresthesias of her left upper and lower extremities. She had an evaluation that is included negative troponins, negative EKGs and a CT scan, which was negative for dissection or embolic phenomenon. She said that while she has been here, she has had recurrent episodes of left-sided numbness and achiness in her left chest, chest pressure associated with shortness of breath. She had about an hour of symptoms this morning. She said it does not associate with sour taste or gas, but it is associated with shortness of breath. No diaphoresis. No change with position or inspiration. No change with changing her head position. She reports that she is raising 2 kids and sometimes walks for an hour with the kids and has not had a problem doing that in recent weeks. She denies any injury or long distance travel. She denies hypertension, diabetes, hyperlipidemia. She denies tobacco use. PAST MEDICAL HISTORY: Includes fusion of her neck for cervical spondylosis with myelopathy. She has chronic headache, migraine with hemiplegia, insomnia, anxiety, depression, neurofibromatosis type 1. PAST SURGICAL HISTORY: Includes cervical decompression and fusion of C4-C5 as well as C5-C6 in 2018. She has had multiple neuroma removal surgeries. MEDICATIONS: Her medications as an inpatient include: 1. Acetaminophen. 2. Fioricet. 3. Maalox. 4. Cymbalta 30 mg b.i.d. 5. Neurontin 900 mg at bedtime, 600 mg in the morning. 6. Ibuprofen q.6 p.r.n. 7. Magnesium hydroxide 30 cc q.4 p.r.n. 8. Reglan 10 mg slow push p.r.n. 9. Oxycodone 5 mg q.6 p.r.n. 10. Trazodone 50 mg at bedtime. 11. Verapamil 180 mg p.o. q.a.m. ALLERGIES: She denies any allergies to meds. She does have a reaction to PLASTIC TAPE, although she has some on now, has not had any reaction and she has seasonal allergies and COCONUT allergies. SOCIAL HISTORY: She is single, has 2 children. She has 2 brothers and 3 sisters, who are well. Her mother and father in their 50s, alive and well. She has a grandmother at 74 who she thinks had bypass surgery. She drinks 1 caffeinated beverage a day. She denied alcohol use. She has a partner. REVIEW OF SYSTEMS: Review of systems x10 was negative except as above. PHYSICAL EXAM: She is a well-developed, well-nourished female, in no apparent distress, moderately overweight. Temperature 98.3, pulse is 64, blood pressure 117/59. Atraumatic, normocephalic. Extraocular muscles are intact. Sclerae anicteric. No significant JVD. Carotids 2+ without bruits. Chest was clear. No CVAT. Abdomen: Bowel sounds present. Nontender. no HSM. Femoral pulses intact without bruits. Distal pulses intact. No edema. Motor strength 5/5 bilaterally. Deep tendon reflexes 2/4 in the upper extremities, unable to evaluate the lower extremities. a and o x 3. no cervical adenopathy DIAGNOSTIC STUDIES/LAB DATA: Labs include a normal CBC from yesterday. Sodium 137, potassium at 3.8, BUN at 10, creatinine 0.78, hemoglobin A1c of 4.9. Cholesterol 123, triglycerides of 59, LDL of 70, HDL of 42. Troponins of 0 and 0.01. D-dimer was negative, less than 200. Cervical spine MRI revealed multiple peripheral nerve sheath tumors bilaterally consistent with history of neurofibromatosis most pronounced at C1-C2 and C2-C3 similar to September 2012, status post anterior cervical fusion, mild narrowing of the central canal at C3-4 and C5-6. Carotid study from 07/07/18 revealed no significant abnormalities. There was vascular narrowing. There was a 1.6 cm right thyroid nodule. Echo from 07/06/18 revealed global wall motion were within normal, EF of 55% to 60%, slight left atrial enlargement with atrial septum intact without shunting, negative bubble study, [id number] MR and mild TR. Similar to 2009 except the MR, it was mild to moderate then and trace to mild now. EKG revealed sinus rhythm with no acute changes. IMPRESSION: My impression is that Ms. Vega has chest pain and shortness of breath of unclear etiology. I think she has a relatively low risk for coronary ischemia based on the pattern and negative workup so far; however, she is anxious and concerned about her symptoms. Would consider possibility of a brachial plexus injury or radiculopathy or neuropathic pain related to complications of her neurofibromatosis. Given her concerns about shortness of breath and chest pain, I suggested that we do a stress echo to evaluate exercise capacity and oxygenation with exertion. I did discuss the case with Dr. Travis and suggested further evaluation for possible radiculopathy or brachial plexus syndrome. She has been seen by Neurology and is being seen by Neurosurgery. Further recommendations will depend on her clinical course. [id number]/[facility] #: [id number] MARISOL
--- NOTE | 2018-07-08 15:18 | PN ---
Subjective Date of Service: 07/08/18 Interval History: Patient seen this morning. She was asleep when I entered the room. I did wake her up and when asked her about her day she expressed persistent headache 01/05 without relief from (1.fioricet, 2. Oxycodone, 3. Toradol last night, 4. Reglan) . In addition she reported recurrence of her chest pain and tightness, left arm tingling and numbness again. she did not mention any symptoms about her left facial numbness this morning. Past Medical History: Unchanged from Admission Objective Active Medications: Acetaminophen (Tylenol Tab*) 650 mg PO Q4H PRN PRN Reason: FEVER/PAIN Last Admin: 07/07/18 16:44 Dose: 650 mg Acetaminophen/Butalbital/Caffeine (Fioricet Tab*) 1 tab PO Q4H PRN PRN Reason: HEADACHE Last Admin: 07/07/18 14:16 Dose: 1 tab Al Hydrox/Mg Hydrox/Simethicone (Maalox Plus*) 30 ml PO Q6H PRN PRN Reason: INDIGESTION Diphenhydramine HCl (Benadryl Iv*) 25 mg IV ONCE PRN PRN Reason: GIVE BEFORE REGLAN FOR MIGRAIN Duloxetine HCl (Cymbalta Cap*) 30 mg PO BID [facility] Last Admin: 07/08/18 08:05 Dose: 30 mg Gabapentin (Neurontin Cap(*)) 600 mg PO QAM [facility] Last Admin: 07/08/18 08:06 Dose: 600 mg Gabapentin (Neurontin Cap(*)) 900 mg PO BEDTIME [facility] Last Admin: 07/07/18 21:21 Dose: 900 mg Ibuprofen (Motrin Tab*) 600 mg PO Q6H PRN PRN Reason: PAIN Last Admin: 07/07/18 16:45 Dose: 600 mg Magnesium Hydroxide (Milk Of Magnesia Liq*) 30 ml PO Q4H PRN PRN Reason: CONSTIPATION Metoclopramide HCl (Reglan Iv*) 10 mg IV SLOW PU ONCE PRN PRN Reason: if headache overnight Oxycodone HCl (Roxycodone Tab*) 5 mg PO Q6H PRN PRN Reason: HEADACHE Last Admin: 07/08/18 08:06 Dose: 5 mg Trazodone HCl (Desyrel Tab*) 50 mg PO BEDTIME [facility] Last Admin: 07/07/18 21:21 Dose: 50 mg Verapamil HCl (Calan Sr Cap*) 180 mg PO QAM [facility] Last Admin: 07/08/18 08:05 Dose: 180 mg Vital Signs - 8 hr 07/08/18 07/08/18 07/08/18 07:27 08:06 11:15 Temperature 98.6 F 98.3 F Pulse Rate 64 64 Respiratory 14 18 14 Rate Blood Pressure 123/67 117/59 (mmHg) O2 Sat by Pulse 97 97 Oximetry Oxygen Devices in Use Now: None Appearance: she was asleep, awaken from her sleep. comfortable objectively, but report increase pain and headache subjectively Eyes: No Scleral Icterus, - - EOMI Ears/Nose/Mouth/Throat: NL Teeth, Lips, Gums, Mucous Membranes Moist Neck: NL Appearance and Movements; NL JVP, Trachea Midline Respiratory: Symmetrical Chest Expansion and Respiratory Effort, Clear to Auscultation Extremities: No Edema Skin: No Rash or Ulcers Neurological: Alert and Oriented x 3 Result Diagrams: 07/07/18 06:04 07/07/18 06:04 Assess/Plan/Problems-Billing Assessment: 32 year old female admitted for several psychosmatic symptoms, chest pain, numbness arm , leg , and face resolved this morning and now with severe 10/10 headache - Patient Problems (1) Chest pain Current Visit: Yes Status: Acute Code(s): R07.9 - CHEST PAIN, UNSPECIFIED SNOMED Code(s): 41628667 Comment: - I doubt she does have CAD or her chest pain is cardiac in nature, however, I did ask cardiology to kindly evaluate her for her chest pain and rule out cardiac cause - Echo unremarkable, trop negative, EKG unremarkable (2) TIA (transient ischemic attack) Current Visit: Yes Status: Acute Code(s): G45.9 - TRANSIENT CEREBRAL ISCHEMIC ATTACK, UNSPECIFIED SNOMED Code(s): 655889389 Comment: - Resovled yesterday but reccurring this morning with left arm numbness and tingling - MRI brain showed old evidence of neurofibromatosis no changes when compared to previous MRI - Carotid US bilateral no acute disease - Echo no acute pathologoy. EF 55% - Given recurrent of her tingling of her arm and headache I reconsulted neurology to help with comanaging her migraine headache. Also consulted neurosurgery to ensure that there is no acute or active issue to her neurfibromatosis. - MRI of cervical spine with and without has been ordered as well (3) Chronic daily headache Current Visit: No Status: Acute Priority: High Code(s): R51 - HEADACHE SNOMED Code(s): 800370715119 Comment: - Probably migraine versus secondary gain. Discussed with neurology and thinks it is migraine - She remains 10/10 without relief from (1.fioricet, 2. Oxycodone, 3. Toradol last night, 4. Reglan). - I did reconsult to help comanage her intractable migraine! (4) Neurofibromatosis, type 1 Current Visit: No Status: Chronic Priority: Medium Comment: - Follows with Dr. Marks - MRI of head reviewed no changes when compared to her 2018 MRI. Evidence of neurofibramotosis changes (5) S/P cervical discectomy Current Visit: No Status: Acute Priority: High Code(s): Z98.890 - OTHER SPECIFIED POSTPROCEDURAL STATES SNOMED Code(s): 001291186 Comment: - Given her reccurent left arm tingling, I did order repeat Cervical spine MRI and I requested neuro surgery reconsult (6) DVT prophylaxis Current Visit: No Status: Acute Priority: High Code(s): XRD2673 - SNOMED Code(s): 427498807 Comment: - SCDs
--- NOTE | 2018-07-08 16:38 | CONSULT ---
Consult Consult: Neurosurgery Consult Date of Admission: 07/06/18 Date of Consult: 07/08/18 Reason for Consult: Left arm numbness/tingling Referring Provider: Dr. Travis HPI: This is a 32 year old female with past medical history significant for migraine headache, neurofibromatosis type 1, anxiety, and anterior cervical discectomy and fusion C4-5 and C5-[address] Sharma in 12/2017, who presented to [facility] with complaint of chest pain, left upper and lower extremity numbness/tingling. She reports driving in the car with her sister as a passenger when she began to develop chest pain. She then began experiencing left upper and lower extremity numbness and tingling. She describes tingling beginning in the left index, middle and ring fingers which then progressed up the arm to the shoulder, left side neck and face. The same sensation then began in the left hip and travelled distally to the foot and toes. At this time, she pulled over to the side of the road, switched seats with her sister and allowed her sister to drive her to [facility]. This numbness/tingling and tightness sensation in the LUE and LLE lasted approximately one hour before improving. Since onset several days ago, the LLE symptoms have completely resolved and the LUE symptoms are significantly improved. She denies weakness in the upper or lower extremities. She does report headache and indicates the top of her head, describing a squeezing, pressure-like headache. The chest pain has improved. She underwent ACD F C4-5 and C5-6 on 01/20/[address] Sharma. Pre- operatively she experienced bilateral upper extremity electric shock sensations , LUE worse than RUE. Post-operatively this pain improved slowly and was completely resolved 2-3 months post-op. Denies recent neck pain and upper extremity symptoms prior to this admission. She reports recent "head cold" on Wednesday for which she took tylenol. Within the past month she started taking Cymbalta and discontinued a medication which she cannot recall the name. Past Medical History: 1. Neurofibromatosis Type 1 2. Migraine headache 3. Cervical degenerative disc disease 4. Anxiety 5. Depression Past Surgical History: 1. ACD F C4-5, C5-6 on 01/20/18- Dr. Sharma 2. Multiple neuroma removal surgeries Medications: Acetaminophen (Tylenol Tab*) 650 mg PO Q4H PRN PRN Reason: FEVER/PAIN Last Admin: 07/07/18 16:44 Dose: 650 mg Acetaminophen/Butalbital/Caffeine (Fioricet Tab*) 1 tab PO Q4H PRN PRN Reason: HEADACHE Last Admin: 07/07/18 14:16 Dose: 1 tab Al Hydrox/Mg Hydrox/Simethicone (Maalox Plus*) 30 ml PO Q6H PRN PRN Reason: INDIGESTION Diphenhydramine HCl (Benadryl Iv*) 25 mg IV ONCE PRN PRN Reason: GIVE BEFORE REGLAN FOR MIGRAIN Duloxetine HCl (Cymbalta Cap*) 30 mg PO BID [facility] Last Admin: 07/08/18 08:05 Dose: 30 mg Gabapentin (Neurontin Cap(*)) 600 mg PO QAM [facility] Last Admin: 07/08/18 08:06 Dose: 600 mg Gabapentin (Neurontin Cap(*)) 900 mg PO BEDTIME [facility] Last Admin: 07/07/18 21:21 Dose: 900 mg Ibuprofen (Motrin Tab*) 600 mg PO Q6H PRN PRN Reason: PAIN Last Admin: 07/07/18 16:45 Dose: 600 mg Magnesium Hydroxide (Milk Of Magncitlaly Liq*) 30 ml PO Q4H PRN PRN Reason: CONSTIPATION Metoclopramide HCl (Reglan Iv*) 10 mg IV SLOW PU ONCE PRN PRN Reason: if headache overnight Oxycodone HCl (Roxycodone Tab*) 5 mg PO Q6H PRN PRN Reason: HEADACHE Last Admin: 07/08/18 08:06 Dose: 5 mg Trazodone HCl (Desyrel Tab*) 50 mg PO BEDTIME [facility] Last Admin: 07/07/18 21:21 Dose: 50 mg Verapamil HCl (Calan Sr Cap*) 180 mg PO QAM [facility] Last Admin: 07/08/18 08:05 Dose: 180 mg Allergies: prednisone Allergy (Severe, Verified 06/05/18 14:15) Hallucinations Adhesive Tape [Plastic Tape] Allergy (Intermediate, Verified 06/05/18 14:15) Rash coconut Allergy (Mild, Verified 06/05/18 14:15) Rash ROS: Full ROS completed. Pertinent finding stated in HPI, all others negative. Physical Exam: Vital Signs: Temp Pulse Resp BP Pulse Ox 98.3 F 64 14 117/59 97 07/08/18 11:15 07/08/18 11:15 07/08/18 11:15 07/08/18 11:15 07/08/18 11:15 General: Alert, supine in bed, NAD HEENT: Head is normocephalic and atraumatic. Corrective lenses in place. EOMI, PERRL/ Moist mucus membranes. Gross hearing intact. Neck: Supple, symmetric and nontender to palpation. Anterior surgical wound is well healed. CV: Radial and pedal pulses 2+ and equal bilaterally Lungs: Breathing is nonlabored Neuro: Speech is clear. Answers questions appropriately. Oriented to person, place, date. CN II-XII intact. Strength upper and lower extremities 5/5 bilaterally. Mildly diminished sensation LUE. DTR 2+ throughout. Hoffmans negative. Coordination intact. Extremities: No edema Imagin. MRI cervical spine on 07/08/18 shows previous ACD F C4-5 and C5-6, degenerative disc disease C3-4 with disc bulge to the right, multiple nerve sheath tumors C1-2 and C2-3 bilaterally. Assessment and Plan: This is a 32 year old female who presented to [facility] with complaint of chest pain, left upper and lower extremity numbness/tingling. She has a history of migraine headaches but reports that this is different than typical presentation. LLE symptoms completely resolved and LUE symptoms mild compared to onset. MRI cervical spine was discussed with the patient showing mild degenerative changes, previous ACD F and no clear explanation for the LUE and LLE numbness/tingling. There is no indication for surgical intervention at this time. This case was discussed with Dr. Philippe. The patient will keep her previously scheduled follow up appointment with Dr. Sharma.
[2018-07-08] MEDS ORDERED: Valproic Acid IV(*) 1,000 MG in NS 0.9% 100 ML* 100 ML IVPB ONE (18:30)
[2018-07-08] MEDS: traZODone TAB* 50 MG TAB PO SCH (20:15)
--- NOTE | 2018-07-09 00:47 | PN ---
PROGRESS NOTE: DATE OF SERVICE: 07/08/18 PATIENT OF: Dr. Travis HISTORY OF PRESENT ILLNESS: This is a 32-year-old woman who I am seeing in neurologic followup for her headaches and left sided numbness and tingling. I discussed again with her today that she has had these symptoms in the past. She still says that she has a severe headache that is at her vertex, it is squeezing with a throbbing and stabbing component. She also has significant chest pain, which seems at times independent of left arm tingling. She has had a stress test that is apparently negative although the report is not in this chart yet. This is what she has been told. She has also had a neurosurgical consultation, had no further recommendations. MEDICATIONS: Her medications have included: 1. Fioricet. 2. Reglan. 3. Oxycodone. 4. Gabapentin. 5. Verapamil. 6. As well as trazodone. PHYSICAL EXAMINATION: On exam, she is alert and oriented with normal speech and comprehension. Cranial nerves II through XII are intact. Motor exam revealed normal tone and strength. Chest: Clear. Cardiovascular: Regular rate and rhythm. I discussed with her that a short course of prednisone might help both her headaches, which is in part musculoskeletal as well as possibly helping her chest pain, if it is inflammatory process. She notes that at a prior hospitalization when she received steroids, she had hallucinations, even though the steroids may have helped her head. I discussed another option would be to have an IV load of Depakote and then be put on maintenance Depakote. I discussed these options with the hospice, but given her concerns about the steroids, I would probably use Depakote, it may have an effect on her mood disorder, hopefully helping her. Dr. Marrero has been signed out to regarding this patient and will be seeing her tomorrow. Thank you for sharing her case. [id number]/[facility] #: [id number] MARISOL
[2018-07-09] MEDS: oxyCODONE TAB* 5 MG TAB PO PRN ×2 (03:15→10:16)
[2018-07-09] MEDS: Verapamil SR CAP* 180 MG PO SCH (07:57)
[2018-07-09] MEDS: Gabapentin CAP(*) 300 MG PO SCH ×2 (07:57→20:22)
[2018-07-09] MEDS: Ibuprofen TAB* 600 MG PO PRN (07:57)
[2018-07-09] MEDS: DULoxetine DR CAP* 30 MG CAP.DR PO SCH ×2 (07:57→20:22)
[2018-07-09] MEDS ORDERED: Valproic Acid CAP(*) 250 MG PO SCH ×2 (09:00→21:00)
[2018-07-09] MEDS ORDERED: Magnesium Sulfate 1 GM IV* 1 GM/100 ML BAG IV ONE (14:00)
--- NOTE | 2018-07-09 14:32 | PN ---
Subjective Date of Service: 07/09/18 Interval History: Patient seen awake, alert. She continues to have severe headache 01/05. I have deferred her migraines treatment to neurology, I will follow recommendations from neurology. I will D/C tele as her cardiac testing negative and neurosurgery did not see any surgical role. Otherwise she is ambulating, resting in bed when I entered the room in no apparent distress Past Medical History: Unchanged from Admission Objective Active Medications: Acetaminophen (Tylenol Tab*) 650 mg PO Q4H PRN PRN Reason: FEVER/PAIN Last Admin: 07/07/18 16:44 Dose: 650 mg Al Hydrox/Mg Hydrox/Simethicone (Maalox Plus*) 30 ml PO Q6H PRN PRN Reason: INDIGESTION Diphenhydramine HCl (Benadryl Iv*) 25 mg IV ONCE PRN PRN Reason: GIVE BEFORE REGLAN FOR MIGRAIN Duloxetine HCl (Cymbalta Cap*) 30 mg PO BID [facility] Last Admin: 07/09/18 07:57 Dose: 30 mg Gabapentin (Neurontin Cap(*)) 600 mg PO QAM [facility] Last Admin: 07/09/18 07:57 Dose: 600 mg Gabapentin (Neurontin Cap(*)) 900 mg PO BEDTIME [facility] Last Admin: 07/08/18 20:13 Dose: 900 mg Magnesium Sulfate/Dextrose (Magnesium Sulfate 1 Gm Iv*) 1 gm in 100 mls @ 200 mls/hr IV ONCE ONE Stop: 07/09/18 14:29 Ketorolac Tromethamine (Toradol Inj*) 15 mg IV PUSH Q6H PRN PRN Reason: MIGRAINE HEADACHE Magnesium Hydroxide (Milk Of Magnesia Liq*) 30 ml PO Q4H PRN PRN Reason: CONSTIPATION Oxycodone HCl (Roxycodone Tab*) 5 mg PO Q6H PRN PRN Reason: HEADACHE Last Admin: 07/09/18 10:16 Dose: 5 mg Prochlorperazine Edisylate (Compazine Inj*) 10 mg IV Q6H PRN PRN Reason: MIGRAINE HEADACHE Trazodone HCl (Desyrel Tab*) 50 mg PO BEDTIME [facility] Last Admin: 07/08/18 20:15 Dose: 50 mg Verapamil HCl (Calan Sr Cap*) 180 mg PO QAM [facility] Last Admin: 04/13/19 07:57 Dose: 180 mg Vital Signs - 8 hr 07/09/18 07/09/18 07/09/18 06:27 07:32 07:57 Temperature 98.1 F Pulse Rate 57 Respiratory 16 16 16 Rate Blood Pressure 116/61 (mmHg) O2 Sat by Pulse 98 Oximetry 07/09/18 07/09/18 07/09/18 10:16 11:55 12:24 Temperature 99.2 F Pulse Rate 64 Respiratory 18 16 18 Rate Blood Pressure 123/63 (mmHg) O2 Sat by Pulse 99 Oximetry Oxygen Devices in Use Now: None Appearance: Awake, alert no distress Eyes: No Scleral Icterus, - - EOMI Ears/Nose/Mouth/Throat: NL Teeth, Lips, Gums, Mucous Membranes Moist Neck: NL Appearance and Movements; NL JVP Respiratory: Symmetrical Chest Expansion and Respiratory Effort, Clear to Auscultation Cardiovascular: NL Sounds; No Murmurs; No JVD, RRR, No Edema Abdominal: NL Sounds; No Tenderness; No Distention Extremities: No Edema Neurological: Alert and Oriented x 3, NL Muscle Strength and Tone Result Diagrams: 07/07/18 06:04 07/07/18 06:04 Assess/Plan/Problems-Billing Assessment: 32 year old female admitted for several psychosmatic symptoms, chest pain, numbness arm , leg , and face resolved this morning and now with severe 10/10 headache - Patient Problems (1) Chest pain Current Visit: Yes Status: Acute Code(s): R07.9 - CHEST PAIN, UNSPECIFIED SNOMED Code(s): 15813249 Comment: - I doubt she does have CAD or her chest pain is cardiac in nature, - Echo unremarkable, trop negative, EKG unremarkable - Cardiology consult appreciated. ETT negative - Will D/C tele (2) TIA (transient ischemic attack) Current Visit: Yes Status: Acute Code(s): G45.9 - TRANSIENT CEREBRAL ISCHEMIC ATTACK, UNSPECIFIED SNOMED Code(s): 678906813 Comment: - Resovled day after admission and reccured again the day after and now resolved 07/09/18 - MRI brain showed old evidence of neurofibromatosis no changes when compared to previous MRI - Carotid US bilateral no acute disease - Echo no acute pathologoy. EF 55% - I consulted neurosurgery, MRI brain, MRI neck all suggesitve of neurofibromatosis but no acute lesion and no changes from her previous MRI - Neurosurgery consulted and signed off as there is no acute interventions - Neurology remains on the case. The acute issue now is her migraine which is persistent despite multiple treatment modalities (3) Chronic daily headache Current Visit: No Status: Acute Priority: High Code(s): R51 - HEADACHE SNOMED Code(s): 853227504709 Comment: - Probably migraine versus secondary gain. Discussed with neurology and thinks it is migraine - She remains 01/05 without relief from (1.fioricet, 2. Oxycodone, 3. Toradol last night, 4. Reglan, valproic added 07/08). - I did reconsult neurology to remain on the case as to help comanage her intractable migraine. Dr. Marrero covering for Dr. Carmen. 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 Marks - MRI of head reviewed no changes when compared to her 2018 MRI. Evidence of neurofibramotosis changes - Neurosurgery consulted, signed off as there is no acute surgrical intervention (5) S/P cervical discectomy Current Visit: No Status: Acute Priority: High Code(s): Z98.890 - OTHER SPECIFIED POSTPROCEDURAL STATES SNOMED Code(s): 899671048 Comment: - Given her reccurent left arm tingling, I did order repeat Cervical spine MRI and I requested neuro surgery reconsult - Neurosurgery consulted, signed off as there is no acute surgrical intervention (6) DVT prophylaxis Current Visit: No Status: Acute Priority: High Code(s): XOG6157 - SNOMED Code(s): 100623786 Comment: - SCDs
--- NOTE | 2018-07-09 15:01 | CONS ---
NEUROLOGY FOLLOWUP CONSULTATION: DATE OF CONSULT: 07/09/18 HOSPITALIST: Dr. Travis. LOCATION: She is in room 443. CHIEF COMPLAINT: Headache. INTERVAL HISTORY: Since yesterday, Aishwarya says her headache is no better. She has photophobia and na usea, but no vomiting. She received intravenous Depakote last night and was started on oral Depakote . MEDICATIONS: Reviewed and she is currently on: 1. Cymbalta 30 mg p.o. b.i.d. 2. Acetaminophen p.r.n. pain. 3. Gabapentin 900 mg p.o. at bedtime and 600 mg q.a.m. 4. Ibuprofen 600 mg p.o. q.6 hours p.r.n. pain. 5. Reglan IV slow push p.r.n. headache. 6. Oxycodone 5 mg p.o. q.6 hours p.r.n. headache. 7. Trazodone 50 mg p.o. at bedtime. 8. Depakene 250 mg p.o. q.a.m. and 500 mg at bedtime. 9. Verapamil 180 mg p.o. daily. PHYSICAL EXAM: On examination, she is awake, but a bit sleepy and photophobic. Temperature 99.2 temp orally, blood pressure 123/63, heart rate 64 and regular. Respiratory rate is 16 and oxygen saturatio n is 99% on room air. Neurological Exam: She has multiple cafe au lait spots on her chest and trun k. Pupils react equally from 2.5 to 2 mm. Funduscopic exam reveals sharp optic discs. Facial muscu lature is symmetric. Speech is clear. She has normal strength in all limbs. She is oriented to pers on, place, and time. Language is fluent. DIAGNOSTIC STUDIES/LAB DATA: Laboratory data includes an MRI of the brain from 07/07/18 interpreted as showing chronic stable changes of neurofibromatosis. MRI of the cervical spine from 07/08/18 reve als multiple peripheral nerve sheath tumors consistent with neurofibromatosis and unchanged from prio r scan of 10/20/12. The patient is status post anterior cervical fusion. Other laboratory data is notable for normal chemistry profile including creatinine that is from 07/07. CBC was normal at that time as well. IMPRESSION AND PLAN: Impression is that of status migrainosus. She has a long history of migraines and has had other hospitalizations with migraines. So far, Reglan has not been effective. So, I recommend switching to Compazine and ketorolac and francoise edicating with diphenhydramine. We will check her EKG tomorrow, specifically looking at QT interval. She is on multiple other medications. Also check her kidney function and a basic metabolic profile . We will give her one dose of 1 g of intravenous magnesium. I have explained the plan to the patie nt and she says that she is not allergic to any of those medications. I will continue to follow her along with you. [id number]/[facility] #: [id number]
[2018-07-09] MEDS: diPHENhydraMINE IV* 50 MG/ML 1 ml VIAL (BENADRYL) IV PRN ×2 (15:29→21:42)
[2018-07-09] MEDS: Ketorolac INJ* 15 MG/ML 1 ML VIAL IV PUSH PRN ×2 (15:29→21:44)
[2018-07-09] MEDS: PROCHLORPERAZINE INJ 5 MG/ML 2 ML VIAL IV PRN ×2 (15:30→21:42)
[2018-07-09] MEDS: traZODone TAB* 50 MG TAB PO SCH (20:22)
[2018-07-10 06:44] LABS: BUN/Creatinine Ratio 17.3 (8-20); Calcium 9.2 mg/dL (8.6-10.3); EGFR African American 99.1 (>60); EGFR Non-African American 81.9 (>60); Magnesium 2.1 mg/dL (1.9-2.7); Phosphorus 4.1 mg/dL (2.5-5.0)
[2018-07-10] MEDS: Gabapentin CAP(*) 300 MG PO SCH ×2 (10:01→21:16)
[2018-07-10] MEDS: DULoxetine DR CAP* 30 MG CAP.DR PO SCH ×2 (10:02→21:16)
[2018-07-10] MEDS: diPHENhydraMINE IV* 50 MG/ML 1 ml VIAL (BENADRYL) IV PRN ×2 (10:02→23:00)
[2018-07-10] MEDS: PROCHLORPERAZINE INJ 5 MG/ML 2 ML VIAL IV PRN ×2 (10:02→23:00)
[2018-07-10] MEDS: Verapamil SR CAP* 180 MG PO SCH (10:02)
[2018-07-10] MEDS: Ketorolac INJ* 15 MG/ML 1 ML VIAL IV PUSH PRN ×2 (10:05→23:00)
--- NOTE | 2018-07-10 13:50 | CONS ---
NEUROLOGY CONSULT FOLLOWUP: DATE OF FOLLOWUP: 07/10/18 HOSPITALIST: Dr. Travis. LOCATION: She is an inpatient in room 443. CHIEF COMPLAINT: Headache. INTERVAL HISTORY: Since yesterday, Aishwarya notes a very little improvement in her headache. She currently rates it as an 8/10. It has variably run from 8 to 10 in referring nurse's notes. She does feel that the addition of Toradol plus prochlorperazine has been helpful. She does feel the medicine is sedating. She has not noticed any problems with jaw tightness or muscle spasms or involuntary movements. MEDICATIONS: Reviewed and she is on: 1. Duloxetine 30 mg p.o. b.i.d. 2. Trazodone 50 mg p.o. q.h.s. 3. Gabapentin 600 mg p.o. q.a.m. and 900 mg q.h.s. 4. Verapamil SR 180 mg p.o. q.a.m. 5. Oxycodone 5 mg p.o. q.6 hours as needed for pain. 6. Compazine 10 mg IV q.6 hours p.r.n. prior to ketorolac 15 mg IV q.6 hours. 7. Diphenhydramine 25 mg IV q.6 hours p.r.n. prior to Toradol and Compazine. PHYSICAL EXAM: On exam, she is awake, but sleepy. Temperature 98.8, blood pressure running 110/60, heart rate is in the 60s and regular, respiratory rate is 16, and oxygen saturation is 97% on room air. Heart is in a regular rate and rhythm without murmurs. Neurologic Exam: Pupils react equally from 4 down to 2.5 mm. She is photophobic, but I could see her right fundus with the blue light in it and disc look sharp. Eye movements and visual rodrigues are normal. Facial musculature is symmetric. Speech is soft, but clear. LABORATORY DATA: From today notable for a normal basic metabolic profile including creatinine. Magnesium this morning is 2.1 and calcium 9.2. EKG this morning is unchanged. IMPRESSION: Status migrainosus with a very little improvement. She can get a few more doses of ketorolac, but then will have to be stopped. I will reinstitute valproic acid infusions today. I will check her basic metabolic profile again tomorrow morning. If she does not respond by tomorrow, may have to consider lumbar puncture, although there are no signs or symptoms of infection. There are instances of patients with pseudotumor cerebri with normal fundi and so we at least measuring her pressure and making sure there is no evidence of infection might be worthwhile. I will continue to follow her along with you. [id number]/[facility] #: [id number] MTDD
--- NOTE | 2018-07-10 14:03 | PN ---
Subjective Date of Service: 07/10/18 Interval History: Patient awake, her headache slightly better 8.5/10, discussed with Dr. Marrero and he will resume valproic acid and will continue with the toradol/Benadryl/ Compazine Past Medical History: Unchanged from Admission Objective Active Medications: Acetaminophen (Tylenol Tab*) 650 mg PO Q4H PRN PRN Reason: FEVER/PAIN Last Admin: 07/07/18 16:44 Dose: 650 mg Al Hydrox/Mg Hydrox/Simethicone (Maalox Plus*) 30 ml PO Q6H PRN PRN Reason: INDIGESTION Diphenhydramine HCl (Benadryl Iv*) 25 mg IV Q6H PRN PRN Reason: GIVE BEFORE REGLAN FOR MIGRAIN Last Admin: 07/10/18 10:02 Dose: 25 mg Duloxetine HCl (Cymbalta Cap*) 30 mg PO BID [facility] Last Admin: 07/10/18 10:02 Dose: 30 mg Gabapentin (Neurontin Cap(*)) 600 mg PO QAM [facility] Last Admin: 07/10/18 10:01 Dose: 600 mg Gabapentin (Neurontin Cap(*)) 900 mg PO BEDTIME [facility] Last Admin: 07/09/18 20:22 Dose: 900 mg Valproic Acid 500 mg/ Sodium (Chloride) 105 mls @ 210 mls/hr IVPB Q8H [facility] Ketorolac Tromethamine (Toradol Inj*) 15 mg IV PUSH Q6H PRN PRN Reason: MIGRAINE HEADACHE Last Admin: 07/10/18 10:05 Dose: 15 mg Magnesium Hydroxide (Milk Of Magnesia Liq*) 30 ml PO Q4H PRN PRN Reason: CONSTIPATION Oxycodone HCl (Roxycodone Tab*) 5 mg PO Q6H PRN PRN Reason: HEADACHE Last Admin: 07/09/18 10:16 Dose: 5 mg Prochlorperazine Edisylate (Compazine Inj*) 10 mg IV Q6H PRN PRN Reason: MIGRAINE HEADACHE Last Admin: 07/10/18 10:02 Dose: 10 mg Trazodone HCl (Desyrel Tab*) 50 mg PO BEDTIME OSK[facility] Last Admin: 07/09/18 20:22 Dose: 50 mg Verapamil HCl (Calan Sr Cap*) 180 mg PO QAM [facility] Last Admin: 07/10/18 10:02 Dose: 180 mg Vital Signs - 8 hr 07/10/18 07/10/18 07/10/18 08:00 08:37 10:01 Temperature 98.7 F Pulse Rate 60 Respiratory 16 16 16 Rate Blood Pressure 109/59 (mmHg) O2 Sat by Pulse 98 Oximetry 07/10/18 07/10/18 07/10/18 10:02 11:16 11:31 Temperature 98.8 F Pulse Rate 63 Respiratory 16 16 12 Rate Blood Pressure 109/56 (mmHg) O2 Sat by Pulse 97 Oximetry Oxygen Devices in Use Now: None Eyes: No Scleral Icterus, - - EOMI Ears/Nose/Mouth/Throat: NL Teeth, Lips, Gums, Mucous Membranes Moist Neck: NL Appearance and Movements; NL JVP Respiratory: Symmetrical Chest Expansion and Respiratory Effort Cardiovascular: NL Sounds; No Murmurs; No JVD Abdominal: NL Sounds; No Tenderness; No Distention Extremities: No Edema Skin: No Rash or Ulcers Neurological: Alert and Oriented x 3, NL Muscle Strength and Tone Result Diagrams: 07/07/18 06:04 07/10/18 06:04 Assess/Plan/Problems-Billing Assessment: 32 year old female admitted for several psychosmatic symptoms, chest pain, numbness arm , leg , and face resolved this morning and now with severe 10/10 headache - Patient Problems (1) Chest pain Current Visit: Yes Status: Acute Code(s): R07.9 - CHEST PAIN, UNSPECIFIED SNOMED Code(s): 86880755 Comment: - I doubt she does have CAD or her chest pain is cardiac in nature, - Echo unremarkable, trop negative, EKG unremarkable - Cardiology consult appreciated. ETT negative - off tele (2) TIA (transient ischemic attack) Current Visit: Yes Status: Acute Code(s): G45.9 - TRANSIENT CEREBRAL ISCHEMIC ATTACK, UNSPECIFIED SNOMED Code(s): 934304850 Comment: - Resovled day after admission and reccured again the day after and now resolved 07/09/18 - MRI brain showed old evidence of neurofibromatosis no changes when compared to previous MRI - Carotid US bilateral no acute disease - Echo no acute pathologoy. EF 55% - I consulted neurosurgery, MRI brain, MRI neck all suggesitve of neurofibromatosis but no acute lesion and no changes from her previous MRI - Neurosurgery consulted and signed off as there is no acute interventions - Neurology remains on the case. The acute issue now is her migraine which is persistent despite multiple treatment modalities (3) Chronic daily headache Current Visit: No Status: Acute Priority: High Code(s): R51 - HEADACHE SNOMED Code(s): 502951076829 Comment: - Probably migraine versus secondary gain. Discussed with neurology and thinks it is migraine - She remains 01/05 without relief from (1.fioricet, 2. Oxycodone, 3. Toradol last night, 4. Reglan, valproic added 07/08). - I did reconsult neurology to remain on the case as to help comanage her intractable migraine. Dr. Marrero covering for Dr. Carmen. 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 Marks - MRI of head reviewed no changes when compared to her 2018 MRI. Evidence of neurofibramotosis changes - Neurosurgery consulted, signed off as there is no acute surgrical intervention (5) S/P cervical discectomy Current Visit: No Status: Acute Priority: High Code(s): Z98.890 - OTHER SPECIFIED POSTPROCEDURAL STATES SNOMED Code(s): 864198002 Comment: - Given her reccurent left arm tingling, I did order repeat Cervical spine MRI and I requested neuro surgery reconsult - Neurosurgery consulted, signed off as there is no acute surgrical intervention (6) DVT prophylaxis Current Visit: No Status: Acute Priority: High Code(s): UPV8955 - SNOMED Code(s): 982089421 Comment: - SCDs
[2018-07-10] MEDS: Valproic Acid IV(*) 500 MG in NS 0.9% 100 ML* 100 ML IVPB SCH ×2 (14:11→21:16)
[2018-07-10] MEDS: oxyCODONE TAB* 5 MG TAB PO PRN (19:54)
[2018-07-10] MEDS: traZODone TAB* 50 MG TAB PO SCH (21:16)
[2018-07-11] MEDS: Valproic Acid IV(*) 500 MG in NS 0.9% 100 ML* 100 ML IVPB SCH ×2 (06:04→13:40)
[2018-07-11 06:23] LABS: BUN/Creatinine Ratio 13.5 (8-20); EGFR African American 88.9 (>60); EGFR Non-African American 73.5 (>60); Potassium 4.2 mmol/L (3.5-5.0)
[2018-07-11] MEDS: oxyCODONE TAB* 5 MG TAB PO PRN (09:47)
[2018-07-11] MEDS: Gabapentin CAP(*) 300 MG PO SCH (09:48)
[2018-07-11] MEDS: Verapamil SR CAP* 180 MG PO SCH (09:49)
[2018-07-11] MEDS: DULoxetine DR CAP* 30 MG CAP.DR PO SCH (09:49)
[2018-07-11] MEDS: Acetaminophen TAB* 325 MG PO PRN (09:49)
[2018-07-11] MEDS: PROCHLORPERAZINE INJ 5 MG/ML 2 ML VIAL IV PRN (09:50)
[2018-07-11] MEDS: diPHENhydraMINE IV* 50 MG/ML 1 ml VIAL (BENADRYL) IV PRN (09:50)
--- NOTE | 2018-07-11 10:23 | PN ---
Subjective Date of Service: 07/11/18 Interval History: Patient has no new complaints. Headache level is 7/10. She feels she was told by neurologist that headache should be 100% controlled before discharge. Has neuropathic pain "all over" per patient, takes gabapentin for this. Unclear why not on TID or QID dosing. Family History: Findings - father with AD-PCKD Past Medical History: Unchanged from Admission Objective Active Medications: Acetaminophen (Tylenol Tab*) 650 mg PO Q4H PRN PRN Reason: FEVER/PAIN Last Admin: 07/11/18 09:49 Dose: 650 mg Al Hydrox/Mg Hydrox/Simethicone (Maalox Plus*) 30 ml PO Q6H PRN PRN Reason: INDIGESTION Diphenhydramine HCl (Benadryl Iv*) 25 mg IV Q6H PRN PRN Reason: GIVE BEFORE REGLAN FOR MIGRAIN Last Admin: 07/11/18 09:50 Dose: 25 mg Duloxetine HCl (Cymbalta Cap*) 30 mg PO BID [facility] Last Admin: 07/11/18 09:49 Dose: 30 mg Gabapentin (Neurontin Cap(*)) 900 mg PO BEDTIME [facility] Last Admin: 07/10/18 21:16 Dose: 900 mg Gabapentin (Neurontin Cap(*)) 300 mg PO TID OSK[facility] Valproic Acid 500 mg/ Sodium (Chloride) 105 mls @ 210 mls/hr IVPB Q8H [facility] Last Admin: 07/11/18 06:04 Dose: 210 mls/hr Magnesium Hydroxide (Milk Of Magnesia Liq*) 30 ml PO Q4H PRN PRN Reason: CONSTIPATION Oxycodone HCl (Roxycodone Tab*) 5 mg PO Q6H PRN PRN Reason: HEADACHE Last Admin: 07/11/18 09:47 Dose: 5 mg Prochlorperazine Edisylate (Compazine Inj*) 10 mg IV Q6H PRN PRN Reason: MIGRAINE HEADACHE Last Admin: 07/11/18 09:50 Dose: 10 mg Trazodone HCl (Desyrel Tab*) 50 mg PO BEDTIME [facility] Last Admin: 07/10/18 21:16 Dose: 50 mg Verapamil HCl (Calan Sr Cap*) 180 mg PO QAM [facility] Last Admin: 07/11/18 09:49 Dose: 180 mg Vital Signs - 8 hr 07/11/18 07/11/18 07/11/18 03:45 07:22 09:47 Temperature 36.6 C 36.4 C Pulse Rate 65 65 Respiratory 16 16 18 Rate Blood Pressure 114/52 124/58 (mmHg) O2 Sat by Pulse 97 98 Oximetry Oxygen Devices in Use Now: None Appearance: lying in dark room, NAD Ears/Nose/Mouth/Throat: Clear Oropharnyx Neck: NL Appearance and Movements; NL JVP Respiratory: Symmetrical Chest Expansion and Respiratory Effort Cardiovascular: NL Sounds; No Murmurs; No JVD, RRR Abdominal: NL Sounds; No Tenderness; No Distention Neurological: Alert and Oriented x 3, NL Muscle Strength and Tone Lines/Tubes/Other Access: Clean, Dry and Intact Peripheral IV Nutrition: Taking PO's Result Diagrams: 07/07/18 06:04 07/11/18 05:55 Assess/Plan/Problems-Billing Assessment: 32 year old female admitted for several neurologic symptoms, chest pain, numbness arm , leg , and face now resolved, and now with migraine headache - Patient Problems (1) Migraine aura, persistent, intractable Current Visit: Yes Status: Acute Priority: High Code(s): G43.519 - PERST MIGRAINE AURA W/O CEREBRAL INFRC, NTRCT, W/O STAT MIGR SNOMED Code(s): 770563245 Comment: -Tolerating IV depakote -Could be discharged on oral depakote -Will discuss with Dr. 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 Marks - Reviewed MRI brain and C-spine - increased gabapentin to TID plus QHS dosing (3) DVT prophylaxis Current Visit: No Status: Acute Priority: High Code(s): [id number] - SNOMED Code(s): 110184979 Comment: -low risk, ambulatory, SCDs when in bed Status and Disposition: possible discharge today after discussion with Dr. Marrero
[2018-07-11] MEDS ORDERED: Gabapentin CAP(*) 300 MG PO SCH (14:00)
--- NOTE | 2018-07-11 15:48 | CONS ---
CC: Dr. Marks* NEUROLOGY FOLLOWUP CONSULTATION: DATE OF FOLLOWUP: 07/11/18 HOSPITALIST: Dr. Bourne. LOCATION: She is an inpatient in room 443. CHIEF COMPLAINT: Headaches, history of neurofibromatosis. INTERVAL HISTORY: Since yesterday, Aishwarya feels better. She still has some photophobia. She has no nausea today. She feels ready to be discharged to home. MEDICATIONS: 1. Valproic acid 500 mg IV q.8 hours. 2. Verapamil SR 180 mg p.o. q.a.m. 3. Trazodone 50 mg p.o. q.h.s. 4. Oxycodone 5 mg p.o. q.6 hours as needed for headache. 5. Compazine 10 mg IV q.6 hours p.r.n. migraine. 6. Diphenhydramine 25 mg IV q.6 hours before Compazine. 7. Cymbalta 30 mg p.o. b.i.d. 8. Gabapentin 300 mg p.o. t.i.d. and 900 mg q.h.s. PHYSICAL EXAM: She is awake, but tired-appearing. Temperature 98.3, blood pressure 119/60, heart rate is 68, respiratory rate is 20, and oxygen saturation is 98% on room air. IMPRESSION AND PLAN: Aishwarya's migraine seemed to be improved enough to where she can be discharged to home. I would recommend that she go home on Depakote 500 mg p.o. b.i.d. She should follow up with Dr. Marks in our office in a month or so. [id number]/[facility] #: [id number] MARISOL
[2018-07-11 15:49] VITALS: BP 118/53
--- NOTE | 2018-07-12 01:43 | DS ---
CC: Dr. Marks; Andrez Manzo, [place] * DISCHARGE SUMMARY: DATE OF ADMISSION: 07/06/18 DATE OF DISCHARGE: 07/11/18 PRIMARY CARE PROVIDER: Andrez Manzo. PRIMARY DIAGNOSIS: Migraine typical with intractable state. SECONDARY DIAGNOSES: Neurofibromatosis type 1 and multiple somatic complaints with chronic peripheral neuropathy that she attributes to the neurofibromatosis , anxiety, depression, insomnia, history of cervical decompression, and fusion C4 to C5 and C5 to C6. MEDICATIONS ON DISCHARGE: 1. Cymbalta 30 mg p.o. b.i.d. 2. Gabapentin 300 mg p.o. t.i.d. plus 900 mg p.o. q.h.s. 3. Multivitamin 3 tabs p.o. q.p.m. 4. Trazodone 50 mg p.o. q.h.s. 5. Verapamil SR 180 mg p.o. q.a.m. 6. Acetaminophen as needed. 7. Milk of magnesia as needed. 8. Valproic acid 500 mg p.o. b.i.d. HOSPITAL COURSE: The patient was admitted on 07/06 with episodes of numbness in her left finger, left side of the chest. The patient also had chest pain. The patient had multiple studies including blood counts that were normal, troponin negative on 3 occasions, D-dimers negative, electrolytes normal, lactic acid normal, cholesterol normal, beta hCG negative, TSH 4.94, vitamin B12 of 549. Urinalysis is negative. Flu swab was negative. The patient, because of concern of TIA versus transformed migraine, was seen by Dr. Marks and Dr. Marrero for neurology consultations and followups as well as DANIA Pierre, from Neurosurgery regarding left arm tingling. This is related to a cervical MRI that showed previous fusion and a new disk bulge on the right C3 to C4. No surgical intervention was recommended. The patient through her 4 days in the hospital had difficulty mainly with the severe migraine that did not respond to trials of several medications including IV Benadryl, Toradol, Compazine. She was started on IV valproic acid and seemed to have a reduction of 10/10 to 7/10 pain on the day of discharge. She was neurologically intact and willing to go home. Continue Depakote and follow up with Neurology. I also increased her gabapentin dose to 300 three times a day during the day and 900 at night to better cover her for neuropathic pain. DISPOSITION: To home with her family. ACTIVITY: As tolerated. DIET: Regular diet. STATUS: Full inpatient stay. CONDITION ON DISCHARGE: Stable. She should have primary care followup within 1 week and she should see Dr. Marks within 1 month. [id number]/[facility] #: [id number] MTDD
== END 2018-07-11 16:48 | disposition home or self-care (01) | DRG 54 ==
LOC: ED 12:55 → MEDTELE 18:44 → OBSVTOIN 07-08 15:46
PROVIDERS: ADMIT Internal Medicine; ATTEND Internal Medicine
PROC: 4A12XM4 Monitoring of Cardiac Stress, External Approach (ICD-10-PCS; principal; 2018-07-08)
DX: G43.511 Persistent migraine aura without cerebral infarction, intractable, with status migrainosus (principal); G45.9 Transient cerebral ischemic attack, unspecified; G81.94 Hemiplegia, unspecified affecting left nondominant side; G63 Polyneuropathy in diseases classified elsewhere; F41.9 Anxiety disorder, unspecified; F32.9 Major depressive disorder, single episode, unspecified; G47.00 Insomnia, unspecified; E66.3 Overweight; I08.1 Rheumatic disorders of both mitral and tricuspid valves; H53.149 Visual discomfort, unspecified; M50.920 Unspecified cervical disc disorder, mid-cervical region, unspecified level; J30.2 Other seasonal allergic rhinitis; R07.9 Chest pain, unspecified; Z88.8 Allergy status to other drugs, medicaments and biological substances; Z91.018 Allergy to other foods; Z91.048 Other nonmedicinal substance allergy status; Q85.01 Neurofibromatosis, type 1; Z98.1 Arthrodesis status; Z82.3 Family history of stroke; Z84.1 Family history of disorders of kidney and ureter; Z68.29 Body mass index [BMI] 29.0-29.9, adult
CPT/HCPCS: 36415; 70450; 70553; 71046; 71275; 72156; 74174; 80048; 80053; 80061; 81003; 82553; 82607; 83036; 83605; 83735; 83880; 84100; 84443; 84484; 84702; 85025; 85379; 85730; 86140; 93005; 93306; 93351; 93880; 99284; A9270-GY; A9579; G0378; J0780; J1200; J1885; J2765; J3475; Q9967

== ENCOUNTER 2019-05-15 10:57 | Emergency (ER) | payer MEDICARE, OTHER ==
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
--- NOTE | 2019-05-15 11:28 | UC ---
Abdominal Pain Female HPI - HPI Summary HPI Summary: 33 yo with hx of neurofibromatosis, with 4 days of left flank and LLQ pain, worsened with movement. No associated fever. Stool passage has been normal. No nausea or vomiting. She has noted that her urine has been cloudy with some associated frequency, but she does not have dysuria or hematuria. Normal appetite, and pain is not worsened by eating. She has a hx of ovarian cysts in the remote past, but none recently. No vaginal discharge and no dyspareunia. No hx of injury. - History of Current Complaint Chief Complaint: UCGU Stated Complaint: LT SIDED LOWER ABDOMINAL PAIN Time Seen by Provider: 05/15/19 11:25 Hx Obtained From: Patient Hx Last Menstrual Period: Onset/Duration: Gradual Onset, Lasting Days Pain Intensity: 10 Location: Discrete At: LLQ Radiates: No Character: Cramping Aggravating Factor(s): Movement Alleviating Factor(s): Nothing Associated Signs and Symptoms: Positive: Urinary Symptoms. Negative: Fever, Back Pain, Constipation, Blood in Stool, Vaginal Discharge - Risk Factors Ectopic Risk Factor: Maternal Age ^ 30 Allergies/Adverse Reactions: Allergies Allergy/AdvReac Type Severity Reaction Status Date / Time prednisone Allergy Severe Hallucinati Verified 05/15/19 11:12 ons Adhesive Tape [Plastic Tape] Allergy Intermediate Rash Verified 05/15/19 11:12 coconut Allergy Mild Rash Verified 05/15/19 11:12 Home Medications: Home Medications Gabapentin CAP(*) [Neurontin 300 CAP(*)] 600 mg PO QAM 05/15/19 [History Confirmed 05/15/19] Sertraline* [Zoloft*] 150 mg PO DAILY 05/15/19 [History Confirmed 05/15/19] Verapamil TAB* [Calan TAB*] 180 mg PO QPM 05/15/19 [History Confirmed 05/15/19] medroxyPROGESTERone ACETATE* [DEPO-Provera*] 150 mg IM SEE INSTRUCTIONS [History Confirmed 05/15/19] PMH/Surg Hx/FS Hx/Imm Hx Previously Healthy: Yes Neurological History: Migraine, Other - neurofibromatosis Psychological History: Anxiety, Depression - Surgical History Surgical History: Yes Surgery Procedure, Year, and Place: 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 EXTRACTION OF NEUROMAS - ARMS, Rt INDEX FINGER, NOSE. WISDOM TEETH. [facility] 2018 [facility] [place] - Family History Known Family History: Positive: Cardiac Disease - [place], Diabetes, Renal Disease - strong FH of poycystic renal disease father(renal transplant, Respiratory Disease - asthma, Other - cancer, migraine, thyroid disease Family History: Asthma, cancer, DM, heart disease, migraine, thyroid disease, [place]. - Social History Occupation: Employed Full-time - SAHM Lives: With Family Alcohol Use: None Substance Use Type: None Smoking Status (MU): Former Smoker Type: Cigarettes Amount Used/How Often: 3-4 ciagrettes per day +2 YEARS Length of Time of Smoking/Using Tobacco: 5 years Have You Smoked in the Last Year: No When Did the Patient Quit Smoking/Using Tobacco: 11/26/17 - Immunization History Most Recent Influenza Vaccination: 01/21/18 Most Recent Tetanus Shot: 01/24/15 Most Recent Pneumonia Vaccination: never Review of Systems All Other Systems Reviewed And Are Negative: Yes Constitutional: Positive: Fatigue Skin: Positive: Negative Eyes: Positive: Negative ENT: Positive: Negative Respiratory: Positive: Negative Cardiovascular: Positive: Negative Gastrointestinal: Positive: Abdominal Pain Physical Exam Triage Information Reviewed: Yes Appearance: Well-Appearing, Pain Distress - moderate, Obese Vital Signs: Initial Vital Signs Temp 98.7 F 05/15/19 11:06 Pulse 67 05/15/19 11:06 Resp 16 05/15/19 11:06 BP 121/73 05/15/19 11:06 Pulse Ox 98 05/15/19 11:06 ENT: Positive: Pharynx normal Neck: Positive: Supple, Nontender, No Lymphadenopathy Respiratory: Positive: Lungs clear, Normal breath sounds Cardiovascular: Positive: RRR, No Murmur Abdomen Description: Positive: No Organomegaly, Soft, CVA Tenderness (L), Other : - tenderness LLQ with guarding, no rebound. Negative: CVA Tenderness (R) Pelvic Exam: Positive: No Cerv. Motion Tender, Other - bimanual exam without no apparent adnexal masses.. Negative: Tender Uterus Musculoskeletal Exam: Normal Neurological: Positive: Alert, Muscle Tone Normal Psychological Exam: Normal Skin Exam: Other - many neurofibromas Diagnostics - Laboratory Lab Results: UA with + rbc's and 1+ esterace positive. Abd Pain Female Course/Dx - Course Course Of Treatment: Increasing left flank pain in 33 yo woman, CT without controast negative for stones. Pain not relieved by injection of toradol. Urine analysis with 1+ esterace, sent for culture, does not have significant lower urinary symptoms. - Differential Dx/Diagnosis Differential Diagnosis: Diverticulitis, Renal Colic, Urinary Tract Infection Provider Diagnosis: Flank pain - Physician Notification/Consults Discussed Care of Patient With: austin Lopez nurse Time Discussed With Above Provider: 13:00 Discharge ED - Sign-Out/Discharge Documenting (check all that apply): Patient Departure All imaging exams completed and their final reports reviewed: Yes - Discharge Plan Condition: Stable Disposition: TRANS HIGHER LVL OF CARE FAC Patient Education Materials: Flank Pain (ED) Referrals: Andrez Manzo PA [Primary Care Provider] - Additional Instructions: As discussed, due to your persistent pain without a definite diagnosis, you will go to the emergency room for further work up. Please proceed straight there. - Billing Disposition and Condition Condition: STABLE Disposition: Trans Higher Lvl of Care Fac
[2019-05-15] MEDS ORDERED: Ketorolac *IM* INJ* 60 MG/2 ML VIAL IM ONE (11:53)
[2019-05-15 12:00] VITALS: BP 121/73
--- NOTE | 2019-05-17 08:11 | UC ---
- Progress Note Progress Note: urine culture final no growth no change glenn 05/17/19 Course/Dx - Diagnoses Provider Diagnoses: Flank pain - Provider Notifications Time Discussed With Above Provider: 13:00 Discharge ED - Sign-Out/Discharge Documenting (check all that apply): Post-Discharge Follow Up All imaging exams completed and their final reports reviewed: Yes - Discharge Plan Condition: Stable Disposition: TRANS HIGHER LVL OF CARE FAC Patient Education Materials: Flank Pain (ED) Referrals: Andrez Manzo PA [Primary Care Provider] - Additional Instructions: As discussed, due to your persistent pain without a definite diagnosis, you will go to the emergency room for further work up. Please proceed straight there. - Billing Disposition and Condition Condition: STABLE Disposition: Trans Higher Lvl of Care Fac
== END 2019-05-15 13:18 | disposition short-term general hospital (02) ==
LOC: UCEAST 10:57
DX: R10.32 Left lower quadrant pain (principal); F41.9 Anxiety disorder, unspecified; F32.9 Major depressive disorder, single episode, unspecified; G43.909 Migraine, unspecified, not intractable, without status migrainosus; C47.9 Malignant neoplasm of peripheral nerves and autonomic nervous system, unspecified; R53.83 Other fatigue; Z88.8 Allergy status to other drugs, medicaments and biological substances; Z91.09 Other allergy status, other than to drugs and biological substances; Z91.018 Allergy to other foods; Z79.899 Other long term (current) drug therapy; Z87.891 Personal history of nicotine dependence
CPT/HCPCS: 74176; 81003; 84702; 87086; 96372; 99212; G0463; J1885

== ENCOUNTER 2019-05-15 13:49 | Emergency (ER) | payer MEDICARE, OTHER ==
[2019-05-15 14:40] LABS: ABS Basophils 0.1 10^3/ul (0-0.2); ABS Eosinophils 0.1 10^3/ul (0-0.6); ABS Lymphocytes 1.5 10^3/ul (1.0-4.8); ABS Monocytes 0.4 10^3/ul (0-0.8); ABS Neutrophils 7.5 10^3/ul (1.5-7.7); Eosinophil % 0.6 %; Hematocrit 42 % (35-47); Hemoglobin 14.2 g/dL (12.0-16.0); Lymphocyte % 15.9 %; Mean Corpuscular HGB Conc 34 g/dL (31-36); Mean Corpuscular Hemoglobin 31 pg (27-31); Mean Corpuscular Volume 91 fL (80-97); Mean Platelet Volume 7.5 fL (7.4-10.4); Platelet Count 315 10^3/uL (150-450); Red Blood Count 4.63 10^6 /uL (3.70-4.87); Red Cell Distribution Width 13 % (10-15); White Blood Count 9.5 10^3/uL (3.5-10.8)
[2019-05-15 14:57] LABS: Albumin 4.6 g/dL (3.2-5.2); Calcium 9.8 mg/dL (8.6-10.3); Potassium 3.8 mmol/L (3.5-5.0); Total Bilirubin 0.7 mg/dL (0.2-1.0)
[2019-05-15 15:03] LABS: Albumin/Globulin Ratio 1.6 (1-3); BUN/Creatinine Ratio 10.6 (8-20); EGFR Non-African American 68.6 (>60); Globulin 2.8 g/dL (2-4); Total Protein 7.4 g/dL (6.4-8.9)
--- NOTE | 2019-05-15 16:18 | ED ---
Abdominal Pain/Female - HPI Summary HPI Summary: The patient is a 33 y/o F presenting to [facility] from [facility] with a cc of constant LLQ pain radiating into the flank onset 05/11/2019. She describes the pain as a constant, stabbing, rated /10 in severity. She endorses nausea and denies any vomiting, fevres, diarrhea, decreased appetite, dysuria, burning with urination , or vaginal bleeding or discharge. While at [facility], she had a negative pelvic exam and negative Abd/Pel CT (Impression: No hydronephrosis or nephrolithiasis) . UA positive for trace blood and leukocyte esterase. Pain is currently rated 10 /10 in severity. There are no aggravating or alleviating factors. She was administered Toradol IM at [facility] without relief. No hx of kidney stones, but father has hx of polycystic renal disease. PMHx: type 1 neurofibromatosis, ovarian cysts but none recently, HTN, asthma. Former smoker, no EtOH, no substance use. Medications reviewed. Allergies noted. - History of Current Complaint Chief Complaint: EDFlankPain Stated Complaint: BACK PAIN PER PT Time Seen by Provider: 05/15/19 15:53 Hx Obtained From: Patient Hx Last Menstrual Period: Onset/Duration: Sudden Onset, Lasting Days - 4, Still Present Timing: Constant Severity Initially: Moderate Severity Currently: Severe Pain Intensity: 10 Pain Scale Used: 0-10 Numeric Location: Discrete At: LLQ Radiates: Yes Radiates to: Flank - left Character: Sharp Aggravating Factor(s): Nothing Alleviating Factor(s): Nothing Associated Signs and Symptoms: Positive: Nausea. Negative: Urinary Symptoms, Decreased Appetite, Vaginal Bleeding, Vaginal Discharge, Vomiting, Diarrhea Allergies/Adverse Reactions: Allergies Allergy/AdvReac Type Severity Reaction Status Date / Time prednisone Allergy Severe Hallucinati Verified 05/15/19 13:56 ons Adhesive Tape [Plastic Tape] Allergy Intermediate Rash Verified 05/15/19 13:56 coconut Allergy Mild Rash Verified 05/15/19 13:56 PMH/Surg Hx/FS Hx/Imm Hx Endocrine/Hematology History: Denies: Hx Blood Disorders - blood clots, Hx Diabetes, Hx Systemic Lupus Erythematosus, Hx Thyroid Disease, Hx Anemia Cardiovascular History: Reports: Hx Angina, Hx Hypertension - ON MEDICATION FOR Denies: Hx Congestive Heart Failure, Hx Coronary Artery Disease, Hx Hypercholesterolemia, Hx Myocardial Infarction, Hx Pacemaker/ICD, Other Cardiovascular Problems/Disorders Respiratory History: Reports: Hx Asthma - neurofibromatosis;migraine Denies: Hx Chronic Obstructive Pulmonary Disease (COPD), Other Respiratory Problems/Disorders GI History: Denies: Hx Ulcer, Other GI Disorders History: Denies: Hx Chronic Renal Failure, Hx Dialysis, Hx Renal Disease, Other Problems/Disorders Musculoskeletal History: Reports: Other Musculoskeletal History - 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 ON 12/07/17 PER PATIENT Denies: Hx Rheumatoid Arthritis Sensory History: Reports: Hx Contacts or Glasses - GLASSES, Hx Legally Blind - Right eye Denies: Hx Cataracts, Hx Eye Injury, Hx Eye Prosthesis, Hx Glaucoma, Hx Macular Degeneration, Hx Vision Problem, Hx Deafness, Hx Hearing Aid, Hx Hearing Problem Opthamlomology History: Reports: Hx Contacts or Glasses - GLASSES, Hx Legally Blind - Right eye Denies: Hx Cataracts, Hx Eye Injury, Hx Eye Prosthesis, Hx Glaucoma, Hx Macular Degeneration, Hx Vision Problem Neurological History: Reports: Hx Headaches, Hx Migraine - CONSTANT, Hx Nerve Disease - NEUROFIBROMATOSIS- TYPE I, 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 EXTRACTION OF NEUROMAS - ARMS, Rt INDEX FINGER, NOSE. WISDOM TEETH. [facility] [place] [facility] [place] Anesthesia Reactions: No - Immunization History Date of Tetanus Vaccine: Unknown Infectious Disease History: No Infectious Disease History: Denies: Hx Clostridium Difficile, Hx Hepatitis, Hx Human Immunodeficiency Virus (HIV), Hx of Known/Suspected MRSA, Hx Shingles, Hx Tuberculosis, Hx Known/ Suspected VRE, Hx Known/Suspected VRSA, Traveled Outside the [place] in Last 30 Days - Family History Known Family History: Positive: Cardiac Disease - [place], Diabetes, Renal Disease - strong FH of poycystic renal disease father(renal transplant, Respiratory Disease - asthma, Other - cancer, migraine, thyroid disease Family History: Asthma, cancer, DM, heart disease, migraine, thyroid disease, [place]. - Social History Alcohol Use: None Hx Substance Use: No Substance Use Type: Reports: None Hx Tobacco Use: Yes Smoking Status (MU): Former Smoker Type: Cigarettes Amount Used/How Often: 3-4 ciagrettes per day +2 YEARS Length of Time of Smoking/Using Tobacco: 5 years Have You Smoked in the Last Year: No Review of Systems Positive: Abdominal Pain - LLQ into left flank, Nausea. Negative: Vomiting, Diarrhea, Other - decreased appetite Negative: burning, dysuria, discharge, other - vaginal bleeding All Other Systems Reviewed And Are Negative: Yes Physical Exam - Summary Physical Exam Summary: Constitutional: Well-developed, Well-nourished, Alert. (-) Distressed Skin: Warm, Dry HENT: Normocephalic; Atraumatic Eyes: Conjunctiva normal Neck: Musculoskeletal ROM normal neck. (-) JVD, (-) Stridor, (-) Nuchal rigidity Cardio: Rhythm regular, rate normal, Heart sounds normal; Intact distal pulses; Radial pulses are 2+ and symmetric. (-) Murmur Pulmonary/Chest wall: Effort normal. (-) Respiratory distress, (-) Wheezes, (-) Rales Abd: Soft, (+) L flank and LLQ tenderness, (-) Distension, (-) Guarding, (-) Rebound Musculoskeletal: (-) Edema Lymph: (-) Cervical adenopathy Neuro: Alert, Oriented x3 Psych: Mood and affect Normal Triage Information Reviewed: Yes Vital Signs On Initial Exam: Initial Vitals Temp Pulse Resp BP Pulse Ox 98.1 F 69 16 128/63 97 05/15/19 13:53 05/15/19 13:53 05/15/19 13:53 05/15/19 13:53 05/15/19 13:53 Vital Signs Reviewed: Yes Procedures - Sedation Patient Received Moderate/Deep Sedation with Procedure: No Diagnostics - Vital Signs Vital Signs Temp Pulse Resp BP Pulse Ox 05/15/19 13:53 98.1 F 69 16 128/63 97 - Laboratory Lab Results: Lab Results 05/15/19 05/15/19 Range/Units 14:29 14:29 WBC 9.5 (3.5-10.8) 10^3/uL RBC 4.63 (3.70-4.87) 10^6 /uL Hgb 14.2 (12.0-16.0) g/dL Hct 42 (35-47) % MCV 91 (80-97) fL MCH 31 (27-31) pg MCHC 34 (31-36) g/dL RDW 13 (10-15) % Plt Count 315 (150-450) 10^3/uL MPV 7.5 (7.4-10.4) fL Neut % (Auto) 79.0 % Lymph % (Auto) 15.9 % [place] % (Auto) 3.8 % Eos % (Auto) 0.6 % Baso % (Auto) 0.7 % Absolute Neuts (auto) 7.5 (1.5-7.7) 10^3/ul Absolute Lymphs (auto) 1.5 (1.0-4.8) 10^3/ul Absolute Monos (auto) 0.4 (0-0.8) 10^3/ul Absolute Eos (auto) 0.1 (0-0.6) 10^3/ul Absolute Basos (auto) 0.1 (0-0.2) 10^3/ul Absolute Nucleated RBC 0.0 10^3/ul Nucleated RBC % 0.0 Sodium 135 (135-145) mmol/L Potassium 3.8 (3.5-5.0) mmol/L Chloride 103 (101-111) mmol/L Carbon Dioxide 26 (22-32) mmol/L Anion Gap 6 (2-11) mmol/L BUN 10 (6-24) mg/dL Creatinine 0.94 (0.51-0.95) mg/dL Est GFR ( Amer) 83.0 (>60) Est GFR (Non-Af Amer) 68.6 (>60) BUN/Creatinine Ratio 10.6 (8-20) Glucose 131 H (70-100) mg/dL Calcium 9.8 (8.6-10.3) mg/dL Total Bilirubin 0.70 (0.2-1.0) mg/dL AST 16 (13-39) U/L ALT 12 (7-52) U/L Alkaline Phosphatase 44 (34-104) U/L Total Protein 7.4 (6.4-8.9) g/dL Albumin 4.6 (3.2-5.2) g/dL Globulin 2.8 (2-4) g/dL Albumin/Globulin Ratio 1.6 (1-3) Result Diagrams: 05/15/19 14:29 05/15/19 14:29 Lab Statement: Any lab studies that have been ordered have been reviewed, and results considered in the medical decision making process. Re-Evaluation - Re-Evaluation First Eval Re-Evaluation Time: 16:55 Change: Improved Comment: Pain improved with Toradol. Discussed results and plan for d/c. Abdominal Pain Fem Course/Dx - Course Course Of Treatment: 33 y/o F p/w L flank and LLQ pain. DDx includes renal stone, UTI, renal stone, less likely ectopic, PID, ovarian torsion, fibroids. Exam relatively unremarkable today, no rigidity or suggestions of acute surgical abd. Pt with negative Mendieta's on exam. Will obtain cbc to assess for underlying infection. CMP. Serum to r/o ectopic. Less likely ovarian torsion given location of pain and no focal TTP on exam. Pelvic done at ( please see their note), no vaginal discharge, also with no fever, so less likely PID. UA without UTI. Will continue to monitor. CT scan did not show any renal pathology or acute abnormalities. Unclear cause of pain, given NSAID and can return for worsening symptoms. - Diagnoses Provider Diagnoses: Left flank pain Discharge ED - Sign-Out/Discharge Documenting (check all that apply): Patient Departure - Patient will be discharged home. - Discharge Plan Condition: Stable Disposition: HOME Prescriptions: Ibuprofen TAB* [Motrin TAB* 800 MG] 800 mg PO TID PRN 10 Days #30 tab PRN Reason: Pain - Moderate Ondansetron ODT TAB* [Zofran 4 MG Odt TAB*] 4 mg PO Q8H PRN 4 Days #12 tab.odt PRN Reason: Nausea/Vomiting Patient Education Materials: Flank Pain (ED) Referrals: Andrez Manzo PA [Primary Care Provider] - 3 Days Additional Instructions: You were seen in the emergency department for flank pain. Your urine did not show any evidence of infection. Your CT scan did not show any kidney stones or other abnormalities. You can try taking Motrin as well as Zofran for nausea as needed. Please follow up with your primary care doctor in the next 2-3 days and return to the emergency department for worsening pain, fevers, pelvic pain, or concerning symptoms. It was a pleasure taking care of you today. - Billing Disposition and Condition Condition: STABLE Disposition: Home - Attestation Statements Document Initiated by Walteribchuck: Yes Documenting Scribe: Marleen Bai Provider For Whom Sam is Documenting (Include Credential): Dr. Andrew Kramer MD Scribe Attestation: IMarleen, scribed for Dr. Andrew Kramer MD on 05/15/19 at 2002. Scribe Documentation Reviewed: Yes Provider Attestation: The documentation as recorded by the Marleen langford accurately reflects the service I personally performed and the decisions made by me, Dr. Andrew Kramer MD Status of Scribe Document: Viewed
[2019-05-15] MEDS ORDERED: Ketorolac INJ* 30 MG/ML 1 ML VIAL IM ONE (16:19)
[2019-05-15 17:14] VITALS: BP 125/69
== END 2019-05-15 17:13 | disposition home or self-care (01) ==
LOC: ED 13:49
DX: R10.84 Generalized abdominal pain (principal); R10.32 Left lower quadrant pain; I10 Essential (primary) hypertension; I20.9 Angina pectoris, unspecified; F41.9 Anxiety disorder, unspecified; F32.9 Major depressive disorder, single episode, unspecified; Z87.891 Personal history of nicotine dependence
CPT/HCPCS: 36415; 80053; 85025; 96372; 99282; J1885

== ENCOUNTER 2022-05-28 11:25 | Observation (INO) ==
[2022-05-28 11:48] LABS: ABS Basophils 0.1 10^3/ul (0-0.2); ABS Eosinophils 0.1 10^3/ul (0-0.6); ABS Lymphocytes 1.6 10^3/ul (1.0-4.8); ABS Monocytes 0.5 10^3/ul (0-0.8); ABS Neutrophils 4.5 10^3/ul (1.5-7.7); Eosinophil % 1.6 %; Hematocrit 41 % (35-47); Hemoglobin 13.8 g/dL (12.0-16.0); Lymphocyte % 24.2 %; Mean Corpuscular HGB Conc 33 g/dL (31-36); Mean Corpuscular Hemoglobin 30 pg (27-31); Mean Corpuscular Volume 90 fL (80-97); Mean Platelet Volume 7.5 fL (7.4-10.4); Platelet Count 332 10^3/uL (150-450); Red Blood Count 4.61 10^6 /uL (3.70-4.87); Red Cell Distribution Width 14 % (10-15); White Blood Count 6.8 10^3/uL (3.5-10.8)
[2022-05-28 11:57] LABS: INR 0.97 (0.88-1.18)
[2022-05-28 12:23] LABS: High Sens Troponin Baseline 3 pg/mL (<15)
[2022-05-28 12:36] LABS: ALT 13 U/L (7-52); AST 11 U/L (13-39); Albumin 4.3 g/dL (3.2-5.2); Albumin/Globulin Ratio 1.8 (1-3); Alkaline Phosphatase 59 U/L (35-149); Anion Gap 4 mmol/L (2-11); Blood Urea Nitrogen 9 mg/dL (6-24); CO2 Carbon Dioxide 27 mmol/L (22-32); Calcium 9.6 mg/dL (8.6-10.3); Chloride 106 mmol/L (101-111); Creatinine, Serum 0.83 mg/dL (0.51-0.95); Globulin 2.4 g/dL (2-4); Glucose 90 mg/dL (70-100); Potassium 4.4 mmol/L (3.5-5.0); Sodium 137 mmol/L (135-145); Total Protein 6.7 g/dL (6.4-8.9); eGFR CKD-EPI 93.6 (>60)
[2022-05-28 13:22] LABS: High Sensitivity Troponin 1 Hr 3 pg/mL (<15)
[2022-05-28 13:23] LABS: C Reactive Protein < 1.00 mg/L (<8.01)
[2022-05-28] MEDS ORDERED: Iohexol 350 (CONTRAST) 500 ML MDV IV ONE (13:48)
[2022-05-28] MEDS ORDERED: Morphine 2 MG/ML SYRINGE IV ONE (14:02)
[2022-05-28 14:45] LABS: Erythrocyte Sed Rate 14 mm/Hr (0-19)
[2022-05-28 16:56] LABS: High Sensitivity Troponin 3 Hr < 3 pg/mL (<15)
[2022-05-28] MEDS ORDERED: Iodixanol (CONTRAST) 320 MG/ML 100 ML SDV IV ONE (19:29)
[2022-05-28 19:39] LABS: ABS Eosinophils 0.1 10^3/ul (0-0.6); ABS Lymphocytes 1.7 10^3/ul (1.0-4.8); ABS Monocytes 0.6 10^3/ul (0-0.8); ABS Neutrophils 3.5 10^3/ul (1.5-7.7); Eosinophil % 1.7 %; Hematocrit 38 % (35-47); Hemoglobin 12.7 g/dL (12.0-16.0); Mean Corpuscular HGB Conc 34 g/dL (31-36); Mean Corpuscular Hemoglobin 30 pg (27-31); Mean Corpuscular Volume 89 fL (80-97); Mean Platelet Volume 7.2 fL (7.4-10.4); Platelet Count 294 10^3/uL (150-450); Red Blood Count 4.26 10^6 /uL (3.70-4.87); Red Cell Distribution Width 14 % (10-15)
[2022-05-28 19:47] LABS: Activated Partial Thrombo Time 30.2 seconds (26.0-38.0); INR 1.05 (0.88-1.18)
[2022-05-28 20:07] LABS: Albumin 3.6 g/dL (3.2-5.2); Albumin/Globulin Ratio 1.8 (1-3); Calcium 8.4 mg/dL (8.6-10.3); Creatinine, Serum 0.82 mg/dL (0.51-0.95); HDL Cholesterol 43.5 mg/dL; Potassium 3.8 mmol/L (3.5-5.0); Total Bilirubin 0.5 mg/dL (0.2-1.0); Total Protein 5.6 g/dL (6.4-8.9)
[2022-05-28] MEDS ORDERED: Metoclopramide 5 MG/ML VIAL (10 mg) IV SLOW PU ONE (20:20)
[2022-05-28] MEDS ORDERED: Gadoteridol (CONTRAST) 279.3 MG/ML 10 ML IV ONE (21:46)
[2022-05-29] MEDS: Morphine 2 MG/ML SYRINGE IV PRN ×4 (04:32→20:22)
[2022-05-29 09:08] LABS: Magnesium 1.8 mg/dL (1.9-2.7)
[2022-05-29] MEDS: Aspirin EC 81 mg TAB.EC (enteric coated) PO SCH (09:40)
[2022-05-29] MEDS ORDERED: Magnesium Sulfate 2 gm BAG 2 GM/50 ML BAG IVPB ONE (10:58)
[2022-05-29] MEDS ORDERED: Valproic Acid IV 500 MG in NS 0.9% 100 ml BAG 100 ML IVPB ONE (16:46)
[2022-05-30 05:53] LABS: ABS Eosinophils 0.1 10^3/ul (0-0.6); ABS Lymphocytes 1.7 10^3/ul (1.0-4.8); ABS Monocytes 0.5 10^3/ul (0-0.8); ABS Neutrophils 4.2 10^3/ul (1.5-7.7); Hematocrit 40 % (35-47); Hemoglobin 13.4 g/dL (12.0-16.0); Lymphocyte % 25.5 %; Mean Corpuscular HGB Conc 34 g/dL (31-36); Mean Corpuscular Hemoglobin 30 pg (27-31); Mean Corpuscular Volume 89 fL (80-97); Mean Platelet Volume 7.4 fL (7.4-10.4); Platelet Count 303 10^3/uL (150-450); Red Blood Count 4.47 10^6 /uL (3.70-4.87); Red Cell Distribution Width 13 % (10-15); White Blood Count 6.5 10^3/uL (3.5-10.8)
[2022-05-30 06:20] LABS: Calcium 9.1 mg/dL (8.6-10.3); Creatinine, Serum 0.76 mg/dL (0.51-0.95); Potassium 4.1 mmol/L (3.5-5.0); eGFR CKD-EPI 104.1 (>60)
[2022-05-30] MEDS: Aspirin EC 81 mg TAB.EC (enteric coated) PO SCH (08:36)
[2022-05-30] MEDS: Morphine 2 MG/ML SYRINGE IV PRN (08:36)
[2022-05-30 14:09] VITALS: BP 111/67
== END 2022-05-30 14:31 | disposition home or self-care (01) ==
LOC: EDHOLD 11:25 → ED 11:25 → SUATTDRO 20:18 → MEDTELE 05-29 03:49
PROVIDERS: ADMIT Student in an Organized Health Care Education/Training Program; ATTEND Internal Medicine